=== PATIENT | male | born 1955 | race Caucasian/White ===

== ENCOUNTER → 2018-03-22 08:44 | Outpatient (CLI) | payer MEDICAID, SELFPAY ==
--- NOTE | 2018-03-22 09:12 | EKG12_ITS ---
Test Reason : PALP Blood Pressure : / mmHG Vent. Rate : 061 BPM Atrial Rate : 061 BPM P-R Int : 140 ms QRS Dur : 086 ms QT Int : 416 ms P-R-T Axes : 072 -09 056 degrees QTc Int : 418 ms Normal sinus rhythm Nonspecific ST abnormality Abnormal ECG No previous ECGs available Confirmed by ESTRELLA TSAI, CHARU ([id number]), assistant editor SHIMA MURPHY ([id number]) on 03/27/2018 3:12:33 PM Referred By: Chauncey George Confirmed By:CHARU DE LA ROSA MD
[2018-03-22 10:24] LABS: Absolute Lymphocyte Count 1.34 X10^3/ul (0.83-4.51); Absolute Neutrophil Count 4.8 X10^3/uL (2.0-7.7); Basophil# 0.03 X10^3/uL; Basophil% 0.4 % (0-1); Eosinophils% 1.5 % (0-5); Hematocrit 45.7 % (40-54); Lymphocyte # 1.34 X10^3/ul (4.0); Lymphocyte % 19.9 % (19-41); Mean Corp Hgb Conc 32.8 g/gl (32-36); Mean Corpuscular Hgb 31.4 pg (27.0-32.0); Mean Corpuscular Volume 95.6 fL (80-94); Mean Platelet Vol. 9.9 fl (6.2-12.0); Monocyte# 0.46 X10^3/uL; Monocyte% 6.8 % (0-10); Neutrophil # 4.79 X10^3/uL (2.7-7.7); Neutrophil % 71.3 % (47-70); Platelet Count 202 K/mm3 (150-450); RBC Distribution Width CV 13.3 % (11.6-14.6); RBC Distribution Width SD 46.3 fl (35.1-43.9); Red Blood Count 4.78 M/mm3 (4.6-6.2); White Blood Count 6.7 K/mm3 (4.4-11.0)
[2018-03-22 10:25] LABS: POSITIVE COUNT NO; POSITIVE DIFFERENTIAL NO; POSITIVE MORPHOLOGY NO
[2018-03-22 10:59] LABS: Anion Gap 9 (5-15); BUN 13 mg/dL (7-18); BUN/Creat Ratio 13.7 RATIO (10-20); Calcium,Total 8.8 mg/dL (8.5-10.1); Chloride 106 mmol/L (98-107); Cholesterol 233 mg/dL (200); Creatinine, Serum 0.95 mg/dL (0.70-1.30); EST Glomerular Filtration Rate 85 mL/min (>60); Est Glom Filt Rate - Afr Amer 103 mL/min (>60); Glucose 85 mg/dL (74-106); High Density Lipoprotein 62 mg/dL; Magnesium 1.9 mg/dL (1.6-2.6); Potassium 3.8 mmol/L (3.5-5.1); Sodium Level 139 mmol/L (136-145); T4 Free Direct 1.17 ng/dL (0.76-1.46); Thyroid Stim Hormone (TSH) 1.07 uIU/mL (0.358-3.74); Triglycerides 59 mg/dL; Very Low Density Lipoprotein 12 mg/dL (5-40)
== END ==
PROVIDERS: Family Provider Internal Medicine; PCP Internal Medicine; Visit Provider Internal Medicine
DX: I49.9 Cardiac arrhythmia, unspecified (principal); R03.0 Elevated blood-pressure reading, without diagnosis of hypertension
CPT/HCPCS: 36415; 80048; 80061; 83735; 84439; 84443; 85025; 93005

== ENCOUNTER → 2018-04-28 15:35 | Outpatient (CLI) | payer MEDICAID, SELFPAY | PROVIDERS: Family Provider Internal Medicine; PCP Internal Medicine; Visit Provider Internal Medicine | DX: Z12.5 Encounter for screening for malignant neoplasm of prostate (principal) | CPT/HCPCS: 36415; 84153; G0103 ==

== ENCOUNTER 2018-05-17 10:44 | Day surgery (SDC) | payer MEDICAID, SELFPAY ==
[2018-05-17 11:05] VITALS: BP 124/85; PULSE 72; RESP 16; TEMP 36.7; O2SAT 99; BMI 25.7
--- NOTE | 2018-05-17 12:00 | COLBX_PTH ---
PATIENT: ORTEGA GAMINO LOC: EN U#:[id number] AGE/SX: 62/M ROOM: RE05/17/[address]: Dr. Chandler Llanos MD : 1955 BED: DIS: 05/17/2018 SPEC #: [id number] RECD: 05/17/18 14:18 STATUS: CONNOR MARLEE #: [id number] MEG: 05/17/18 12:[address]: Chandler Llanos DEPT: SURGICAL PATHOLOGY RECD BY: Dontae Wooten ENTERED: 05/17/18 14:19 SP TYPE: COLON BX OTHR DR: Dr. Chauncey George MD Tissues: A - Sigmoid colon biopsy B - Sigmoid colon biopsy Procedures: Surgery Specimen Level IV HEADER OPERATION: Colonoscopy (MAC) PRE-OP DIAGNOSIS: Screening TISSUE SUBMITTED: A ? Proximal sigmoid colon polyp, B ? Mid sigmoid polyp MICROSCOPIC DIAGNOSIS A. Proximal sigmoid colon polyp, biopsy: Fragments of hyperplastic polyp. B. Mid sigmoid polyp, biopsy: Hyperplastic polyp. DARRELL:charlie 05/18/18 MICROSCOPIC DESCRIPTION Slides are reviewed. GROSS DESCRIPTION A - Received in fixative is one container labeled with the patient's name and designated proximal sigmoid colon polyp. The specimen consists of multiple fragments of weber-pink polyp that in aggregate measure 1?x 0.5 x 0.3 cm. The specimen is totally submitted in one cassette. B - Received in fixative is one container labeled with the patient's name and designated mid sigmoid polyp. The specimen consists of a piece of weber-pink polyp measuring 0.7 x 0.7 x 0.2 cm. The specimen is totally submitted in one cassette. / DARRELL:charlie 05/17/18 TC:1 CPT: 17471 x2
[2018-05-17 12:31] VITALS: BP 117/88; BP 124/85; PULSE 66; RESP 16; TEMP 36.6; O2SAT 93
[2018-05-17 12:35] VITALS: BP 109/65; BP 124/85; PULSE 64; RESP 16; O2SAT 95
[2018-05-17 12:40] VITALS: BP 106/67; BP 124/85; PULSE 58; RESP 16; O2SAT 98
[2018-05-17 12:46] VITALS: BP 104/65; BP 124/85; PULSE 60; RESP 16; TEMP 35.9; O2SAT 98
[2018-05-17 13:05] VITALS: BP 124/85
--- NOTE | 2018-05-17 13:27 | H&P.OPEN ---
Past Medical/Surgical History - Planned Operation Planned Operative Procedure/s: cscope open access Date of Operative Procedure: 05/17/18 Permit Signed: No S.O.S: No Is This Patient Having a Total Joint: No - Previous Hospitalizations/Surgeries HX Hospitalizations: No HX of Surgeries: left arm and hand reattached after severing injury 1987. dental surgery Any Problems With Anesthesia: No You/Your Family Experience Fever (Hyperthermia) With Anes: No Cholinesterase deficiency: No - Cardiovascular Hx Chest Pain within Last 2 months: No Hx of Irregular Heartbeat and/or Afib: Yes - tachycardia/saw pcp/had ekg Hx Heart Attack: No Hx Congestive Heart Failure: No Hx Rheumatic Fever: No Hx Hypertension: No Hx Internal Defibrillator: No Hx Pacemaker: No Hx Cardiac Catheterization: No Hx Cardiac Surgery/Stents/Etc.: No Hx Stress Test: No HX Edema: No Hx Pain in Legs when Walking/Leg Cramps: No - Respiratory Chronic Cough: No HX of Shortness of Breath: No Hoarseness: No Hx Chronic Obstructive Pulmonary Disease (COPD): No Hx Asthma: No Hx Emphysema: No Hx Sleep Apnea: No Hx Oxygen Use at Home: No Hx Respiratory Tract Infection/Cold (presently): No Do You Snore Loudly (louder than talking or can be heard): Yes Do You Often Feel Tired/ Fatigued/ Sleepy Dring Daytime?: No Has Anyone Observed You Stop Breathing During Sleep?: Yes Result (for STOP score): Positive Hx Smoking: No Smoking Status: Never smoker - Gastrointestinal Hx Gastroesophageal Reflux: Yes Controlled With Meds: Yes Hx Gastrointestinal Disorders: No Hx Gastrointestinal Bleed: No Hx Ulcer: Yes - possible ulcer currently Hx Hiatal Hernia: No Difficulty Chewing/Swallowing: No Recent Onset of Swallowing Problems: No Special diet followed at home: No Hx Unplanned Weight Loss of 20#: No HX Unplanned Weight Gain of 20#: No - Neurological Hx Seizures: No HX Syncope/Blackout Spells/Unconsciousness: No Hx CVA/Stroke: No Hx Transient Ischemic Attacks (TIA): No Hx Multiple Sclerosis: No Hx Parkinson's Disease: No Hx Head/Neck Injury: Yes - 1987 hit head Hx Headaches: No Hx Back Injury/Pain: No Recent Onset of Speech Difficulty: No Restless Legs: Yes Does patient have nerve stimulator: No Patient instructed to have device shut off: No Rep notified?: No - Blood Disorder Hx Leukemia: No Bleeding Tendencies: No Hx Deep Vein Thrombosis: No Hx High Cholesterol: No Blood Transmitted Disease: No Hx Hepatitis: No Hx Cirrhosis: No Hx Anemia: No Hx Blood Disorders: No - Genitourinary Hx Renal Disease: No - Musculoskeletal Hx Arthritis: Yes Hx Rheumatoid Arthritis: No Hx Gout: No Recent Onset of an Orthopedic Problem: No - Endocrine Hx Diabetes: No Thyroid Disease: No Hx Steroid Therapy: No - Psycho/Social Hx Substance Use: No Hx Alcohol Use: No Hx Anxiety: Yes - at times Hx Depression: No Mental Illness: No Hx Dementia: No - Miscellaneous Hx Cancer: No Recent Exposure to Contagious Disease: No Active MRSA: No Hx of C-Diff: No Any Loose Teeth: No - no teeth Allergies codeine Allergy (Verified 05/17/18 11:04) Unknown - Discharge Is Pt Admitted From a Alf, or a Longterm: No Who Could Help: After D/C, Where Do you Plan to Go: Return Home - From the PAT History Number of Risk Factors: 3 - Physical Exam General: Alert, Oriented x3, Cooperative Neck: No JVD Lungs: Normal air movement Cardiovascular: Regular rate, Regular Rhythm Abdomen: Soft, Non Tender, Non-Distended Vital Signs Temp Pulse Resp BP Pulse Ox 96.7 F L 60 16 104/65 98 05/17/18 12:46 05/17/18 12:46 05/17/18 12:46 05/17/18 12:46 05/17/18 12:46 Oxygen Delivery Method Room Air Weight: 179 lb 6.4 oz Body Mass Index (BMI) 25.7 Assessment/Plan All Active Problems (Last Reviewed 04/19/18 @ 14:31 by Kecia Freeman) Hyperlipidemia (Acute) 62-year-old male with screening colonoscopy 1. Patient reports he is having no issues at this time. He denies any abdominal pain or blood in his stool. He has no family history of colon cancer. He has never had a colonoscopy in the past. 2. I explained endoscopy in detail to the patient. I explained the risks including but not limited to stroke or heart attack with anesthesia, perforation of the GI tract, bleeding, infection. I explained that any of these could necessitate further emergency surgery. The patient understands and all questions were answered sufficiently. The patient wishes to proceed with procedure. Chandler Llanos MD Pager: [facility] [address] [place] [address], [address] [place] [address] Office: Surgery Risks - Colonoscopy Risks Include but are not Limited To: Risks include but are not limited to: Bleeding, perforation requiring further surgery, inability to complete colonoscopy requiring barium enema.
--- NOTE | 2018-05-17 13:28 | PCM.OPRPT ---
Problem List (1) Screen for colon cancer Status: Acute Report of Operation Date of Procedure: 05/17/18 Pre-Operative Diagnosis: Screening colon cancer Post-Operative Diagnosis: Sigmoid polyps ?2 Surgery/Procedure Performed:: Colonoscopy with snare polypectomy Specimen's removed: 1. Proximal sigmoid polyp. 2. Mid sigmoid polyp Description of Procedure: The major risks and benefits associated with the procedure were explained to the patient in detail. The patient verbalized understanding and agreement with the same. The patient was brought to the endoscopy suite. After adequate sedation was achieved, the patient was placed in the left lateral decubitus position and a digital rectal exam was performed. This examination was within normal limits. A well-lubricated colonoscope was then inserted into the rectum and advanced under direct visualization to the level of the cecum. The bowel prep was good. The cecum was identified by both visual and anatomic landmarks. A photograph was taken of the end of the cecum. The scope was then fully withdrawn while examining the color, texture, anatomy and integrity of the mucosa from the cecum to the anal canal. The findings were consistent with normal colonic mucosa. Over 6 minutes were taken to examine the colonic mucosa. The patient did have a proximal sigmoid polyp which was sessile. This was removed in 2 pieces with cautery snare. The patient also had a small polyp just distal to this which was removed with cautery snare. Hemostasis was good at both sites. Upon reaching the rectum the scope was retroflexed to examine the distal rectal vault. The scope was then straightened and was completely retrieved upon exiting the anal canal and the procedure was terminated. The patient was then transferred to the recovery room in stable condition. Recommendations for follow up: Depending on pathology
== END 2018-05-17 13:08 | disposition home or self-care (01) ==
LOC: EN 10:45 → AC 10:46
PROVIDERS: Family Provider Internal Medicine; PCP Internal Medicine; Visit Provider Surgery
PROC: 0DJD8ZZ Inspection of Lower Intestinal Tract, Via Natural or Artificial Opening Endoscopic (ICD-10-PCS; CPT 45378; principal; 2018-05-17 11:55)
DX: Z12.11 Encounter for screening for malignant neoplasm of colon (principal); K63.5 Polyp of colon; K21.9 Gastro-esophageal reflux disease without esophagitis; R00.0 Tachycardia, unspecified; Z87.891 Personal history of nicotine dependence; Z79.82 Long term (current) use of aspirin
CPT/HCPCS: 45385; 88305; J7120

== ENCOUNTER 2022-05-10 09:33 | Observation (INO) | payer MEDICARE, SELFPAY ==
[2022-05-10] VITALS (16 sets, daily range): BP systolic 112–152; BP diastolic 94–113; PULSE 94–147; RESP 16–158; TEMP 36.2–37.2; O2SAT 96–98; BMI 26.4; BMI 29.0
--- NOTE | 2022-05-10 09:45 | EKG12_ITS ---
Test Reason : sob Blood Pressure : / mmHG Vent. Rate : 161 BPM Atrial Rate : 000 BPM P-R Int : 000 ms QRS Dur : 076 ms QT Int : 282 ms P-R-T Axes : 000 -12 134 degrees QTc Int : 461 ms Atrial fibrillation with rapid ventricular response Nonspecific ST and T wave abnormality Abnormal ECG Confirmed by LORENA TSAI, GORDY ([id number]), technical writer and editor BASHIR HAYWOOD ([id number]) on 05/12/2022 9:37:58 AM Referred By: Dinesh Confirmed By:GORDY CARRILLO MD
--- NOTE | 2022-05-10 09:46 | ED.VIS.DYS ---
HPI History of Present Illness Chief Complaint: Shortness of Breath Narrative Narrative: Patient presents with his because of shortness of breath that he has had for the last couple of years. He thought it was secondary to what was going around meaning COVID-19. He now has dyspnea on exertion, walking up the stairs from the basement, and going outside to get the mail. He also states that he awakens from sleep, feeling shortness of breath. He denies any excessive daytime sleepiness. Of note, he quit smoking cigarettes in 2003, but occasionally smokes marijuana. Denies any chest pain. He has an occasionally productive cough. No fevers or chills. No recent weight gain or swelling. [facility] Medical History (Updated 05/10/22 @ 10:38 by eBar Montiel MD) Arthritis GERD (gastroesophageal reflux disease) Seasonal allergies Home Medications aspirin 81 mg chewable tablet 81 mg PO QDAY 03/16/18 [History Last Taken 05/11/18] ranitidine HCl 150 mg tablet (Zantac) 150 mg PO QDAY 03/16/18 [History Last Taken 05/17/18 06:30 150 MG] Allergy/AdvReac Type Severity Reaction Status Date / Time codeine Allergy Unknown Verified 05/10/22 09:35 Family History Father Myocardial infarction, Onset Age: 45 Cancer prostate Surgical History History of facial surgery History of surgery on arm Social History Smoking Status: Never smoker how long ago did patient quit smokin alcohol intake: never substance use type: does not use what type of physical activity do you participate in: bicycling frequency: daily ROS ROS ED ROS Narrative Constitutional: No fever, no chills. HEENT: No sore throat. No neck pain. No loss of vision. No rhinorrhea. Cardiovascular: No chest pain. No palpitations. No pedal edema. No recent weight gain. Respiratory: Occasionally productive cough of clear sputum, positive shortness of breath, positive dyspnea on exertion. Abdominal: No abdominal pain. No nausea. No vomiting. Genitourinary: No dysuria. No hematuria. Musculoskeletal: No myalgias. No arthralgias. Neurologic: No headaches. No dizziness. No lightheadedness. Skin: No rash. No change in color. Psychiatric: No depression. No anxiety. EXAM Physical Exam Narrative Exam Narrative: Afebrile. Vital signs noted. HEENT: Normocephalic. Atraumatic. PERRL, EOMI. Neck soft and supple. No point tenderness or step off. Cardiovascular: Irregular rhythm with intermittent tachycardia. No murmurs, rubs, or gallops appreciated. Respiratory: No tachypnea. Lungs clear to auscultation bilaterally. Gastrointestinal: Abdomen soft, nontender, with normoactive bowel sounds. No rebound or guarding. Neurological: Awake. Alert. Nonfocal, nonlateralizing. Skin: No rash. Normal color. No pallor. Musculoskeletal: No pedal edema. Full range of motion extremities. Const Vital Signs: 05/10/22 09:34 05/10/22 09:42 05/10/22 10:10 Temperature 98.2 F Temperature Source Temporal Pulse Rate 103 H Respiratory Rate 16 158 H Respiratory Effort Normal Non-Labored Respiratory Depth Normal Respiratory Pattern Normal Blood Pressure 148/109 H Blood Pressure Mean 122 Pulse Ox 98 Oxygen Delivery Method Room Air Room Air 05/10/22 10:24 05/10/22 11:05 Temperature Temperature Source Pulse Rate 147 H 118 H Respiratory Rate 18 16 Respiratory Effort Respiratory Depth Respiratory Pattern Blood Pressure 152/108 H 146/112 H Blood Pressure Mean 122 123 Pulse Ox 98 97 Oxygen Delivery Method Room Air MDM MDM MDM Narrative Medical decision making narrative: Patient's pulse ox is 98% on room air without evidence of hypoxia. Comprehensive work-up was pursued. I will look for atrial fibrillation with an EKG, and any pneumothorax or pneumonia/heart failure with a two-view chest x-ray. I do feel that he may have some component of COPD given that he is a former smoker. He was told he may require follow-up with cardiology, pulmonology, or both. EKG was obtained and interpreted by myself. It does demonstrate atrial fibrillation with rapid ventricular response at [address] changes. No STEMI. I reexamined the patient and he does have an increase in his heart rate over initial examination and is more irregular. He was placed on a property assessment monitor and administered 10 mg of Cardizem intravenously. He only had a slight reduction in his heart rate to the 140s. He will be bolused an additional 10 mg of diltiazem intravenously. Chest x-ray interpreted by myself shows no evidence of pneumonia or pneumothorax, no CHF. His laboratory work is grossly unremarkable with a normal white count of 6.9, hemoglobin normal at 14.0, hematocrit 42.7. He has a normal platelet count of 213. Electrolyte panel shows chloride slightly elevated at 110 which I think is nonspecific, glucose appropriately elevated at 117 with a normal anion gap of 6. High-sensitivity troponin is 13 and he is having shortness of breath for the last few years. He has a slight elevation of his brain natruretic peptide at 305. He has a normal pulse ox. He has a low CHADS2 score. Goal will be for rate control currently. I am unsure as to when his atrial fibrillation may have previously started. He and his state that he has no prior history of atrial fibrillation and may have been diagnosed with anxiety attack given his shortness of breath in the past. His rate was not well controlled with 2 boluses of 10 mg of diltiazem. I discussed the patient with Dr. Casarez. Patient will be admitted to the PCU. He would like an additional bolus of 10 mg of diltiazem and 100 mg of metoprolol tartrate given to the patient. Disposition is admit in stable condition. Lab Data Attestation: I reviewed the patient's lab results. Labs: Laboratory Results - last 24 hr 05/10/22 05/10/22 05/10/22 09:55 09:55 09:55 WBC 6.9 RBC 4.43 L Hgb 14.0 Hct 42.7 MCV 96.4 H MCH 31.6 MCHC 32.8 RDW Std Deviation 47.6 H RDW Coeff of Chivo 13.4 Plt Count 213 MPV 10.2 Immature Gran % (Auto) 0.400 Neut % (Auto) 76.1 H Lymph % (Auto) 13.[address] [place] [employer] % (Auto) 8.3 Eos % (Auto) 1.2 Baso % (Auto) 0.4 Absolute Neuts (auto) 5.3 Absolute Lymphs (auto) 0.94 Nucleated RBC % 0 Sodium 140 Potassium 4.0 Chloride 110 H Carbon Dioxide 24.0 Anion Gap 6 BUN 12 Creatinine 0.98 Estim Creat Clear Calc 77.90 Est GFR (MDRD) Af Amer 98 Est GFR (MDRD) Non-Af 81 BUN/Creatinine Ratio 12.3 Glucose 117 H Calcium 8.8 Troponin I High Sens 13 B-Natriuretic Peptide 305.5 H Radiography Diagnostic Testing: Clinical Impression(s) from Imaging Studies Chest X-Ray 05/10/22 10:13 IMPRESSION: Poor inspiration with some bibasilar atelectasis but Electronically Signed: Roby Noyola MD at 10:31 EDT , Discharge Plan Triage Chief Complaint: Shortness of Breath ED Provider: Bear Montiel Dx/Rx/DC Orders Clinical Impression: Atrial fibrillation, new onset, Atrial fibrillation with rapid ventricular response, Dyspnea on exertion Primary Care Provider: Gladis Rodgers
[2022-05-10 10:05] LABS: Absolute Lymphocyte Count 0.94 X10^3/uL (0.83-4.51); Absolute Neutrophil Count 5.3 X10^3/uL (2.0-7.7); Basophil# 0.03 X10^3/uL; Basophil% 0.4 % (0-1); Eosinophil# 0.08 X10^3/uL; Eosinophils% 1.2 % (0-5); Hematocrit 42.7 % (40-54); Lymphocyte # 0.94 X10^3/ul (0.83-4.51); Lymphocyte % 13.6 % (19-41); Mean Corp Hgb Conc 32.8 g/dL (32-36); Mean Corpuscular Hgb 31.6 pg (27.0-32.0); Mean Corpuscular Volume 96.4 fL (80-94); Mean Platelet Vol. 10.2 fl (6.2-12.0); Monocyte# 0.57 X10^3/uL; Monocyte% 8.3 % (0-10); NRBC Flagged by Analyzer 0 % (0-5); Neutrophil # 5.25 X10^3/uL (2.7-7.7); Neutrophil % 76.1 % (47-70); Platelet Count 213 K/mm3 (150-450); RBC Distribution Width CV 13.4 % (11.6-14.6); RBC Distribution Width SD 47.6 fl (35.1-43.9); Red Blood Count 4.43 M/mm3 (4.6-6.2); White Blood Count 6.9 K/mm3 (4.4-11.0)
[2022-05-10] MEDS: dilTIAZem 25 MG/5 ML Vial 10 MG IV BOLUS ×3 (10:07→11:38)
--- NOTE | 2022-05-10 10:13 | RAD_ITS ---
STUDY: X-RAY CHEST REASON FOR EXAM: Male, 66 years old. Shortness of Breath TECHNIQUE: PA and lateral views of the chest. COMPARISON: None. FINDINGS: Poor inspiration with some bibasilar atelectasis. There is no demonstrated pleural abnormality. Normal size heart. Normal mediastinum and jeanne. Normal visualized pulmonary arteries. Normal visualized aortic arch and descending thoracic aorta. Normal visualized thoracic spine. Normal visualized ribs, clavicles, and shoulders. There is no demonstrated abnormality of the visualized soft tissue structures of the upper abdomen. RAD/Chest PA and Lateral IMPRESSION: Poor inspiration with some bibasilar atelectasis but Electronically Signed: Roby Noyola MD at 10:31 EDT ,
[2022-05-10 10:18] LABS: BNP,B-Type NATRIURETIC PEPTIDE 305.5 pg/mL (0-100)
[2022-05-10 10:21] LABS: Anion Gap 6 (5-15); BUN 12 mg/dL (7-18); BUN/Creat Ratio 12.3 RATIO (10-20); Calcium,Total 8.8 mg/dL (8.5-10.1); Chloride 110 mmol/L (98-107); Creatinine, Serum 0.98 mg/dL (0.70-1.30); EST Glomerular Filtration Rate 81 mL/min (>60); Est Glom Filt Rate - Afr Amer 98 mL/min (>60); Glucose 117 mg/dL (74-106); Sodium Level 140 mmol/L (136-145); Troponin-I HS 13 pg/mL (3.0-78.0)
--- NOTE | 2022-05-10 11:26 | NURSING ---
DR SHETH FOR DR AMARO
--- NOTE | 2022-05-10 11:40 | ECHOCS_ITS ---
Reason For Study: Afib, Aflutter Procedure This was a 2D Doppler, Color Flow transthoracic echocardiogram. Contrast injection was performed. Exam performed portable in patient room. Left Ventricle Normal LV size. Mild concentric left ventricular hypertrophy. Moderately severe global left ventricular systolic dysfunction. The estimated ejection fraction is 35 %. There is moderate to severe global hypokinesis of the left ventricle. Right Ventricle Normal RV size. Normal systolic function. Atria The left atrium is mildly enlarged. Normal right atrium. Mitral Valve Bileaflet diffuse mitral valve thickening. Mild-Moderate (1-2+) eccentric mitral valve insufficiency. Tricuspid Valve Normal tricuspid valve. Mild to moderate (1-2+) tricuspid valve insufficiency. Pulmonary artery systolic pressure is 34 mmHg. Pulmonic Valve Normal pulmonic valve. Great Vessels Normal aortic root. The pulmonary artery is normal size. Inferior vena cava collapse with respiration. Pericardium/Pleural No pericardial effusion. Medication Diluted definity 3ml given slow IV push to enhance endocardial definition. MMode/2D Measurements & Calculations LVIDd: 5.3 cm IVSd: 1.2 cm Ao root diam: 3.4 cm LVIDs: 4.5 cm LVPWd: 1.2 cm RVDd: 2.7 cm FS: 14.3 % LAV(MOD-bp): 82.5 ml LVAd ap4: 25.8 cm2 SV(MOD-sp4): 27.6 ml LAV(MOD-bp) Indexed: 40.0 ml/m2 LVLd ap4: 7.0 cm LAV(MOD-sp2): 90.5 ml EDV(MOD-sp4): 80.6 ml LAV(MOD-sp4): 65.9 ml EDV(sp4-el): 81.4 ml LVAs ap4: 19.8 cm2 LVLs ap4: 6.1 cm ESV(MOD-sp4): 53.0 ml ESV(sp4-el): 54.8 ml EF(MOD-sp4): 34.2 % EF(sp4-el): 32.7 % SV(sp4-el): 26.6 ml LA A4 area: 23.7 cm2 LA dimension(2D): 4.1 cm RA A4 area: 18.4 cm2 Doppler Measurements & Calculations MV E max jair: 88.8 cm/sec Ao V2 max: 81.6 cm/sec LV V1 max: 60.3 cm/sec Ao max P.7 mmHg LV V1 max P.5 mmHg Ao V2 mean: 63.7 cm/sec Ao mean P.8 mmHg Ao V2 VTI: 13.0 cm PA V2 max: 55.1 cm/sec TR max jair: 272.8 cm/sec TR max P.8 mmHg ECHO/Echo Complete W/ Contrast Interpretation Summary Normal LV size. Mild concentric left ventricular hypertrophy. Moderately severe global left ventricular systolic dysfunction. Mild-Moderate (1-2+) eccentric mitral valve insufficiency. Pulmonary artery systolic pressure is 34 mmHg. The estimated ejection fraction is 35 %. Contrast injection was performed. Ordering Physician: Dennis Casarez Referring Physician: Gladis Rodgers Performed By: Juana Parra, GARRET, RVT
--- NOTE | 2022-05-10 11:40 | NURSING ---
PCU TERELETSKY ATRIAL FIBRILLATION, PETER
[2022-05-10] MEDS: Metoprolol Tartrate 100 MG Tablet PO ×2 (11:47→20:24)
--- NOTE | 2022-05-10 12:27 | PCM.HP.STD ---
Documented by User: TONY He 05/10/22 12:46 HPI - General General Date of Admission: 05/10/22 Date of Service: 05/10/22 Chief Complaint: Shortness of Breath HPI Narrative ORTEGA GAMINO, is a 66 M who presents with complaint of shortness breath with exertion that he has had for the last couple of years but has gotten progressively worse in the past few weeks. patient states he has not seen a provider since 2019 and currently does not take any prescription medications. Patient reports he takes a low dose aspirin and pepcid. [facility] Medical History (Updated 05/10/22 @ 10:38 by Bear Montiel MD) Arthritis GERD (gastroesophageal reflux disease) Seasonal allergies Home Medications aspirin 81 mg chewable tablet 81 mg PO QDAY [facility] 03/16/18 [History Last Taken 05/09/22 21:00] ranitidine HCl 150 mg tablet (Zantac) 150 mg PO QDAY GERD 03/16/18 [History Last Taken 05/09/22 21:00] Allergy/AdvReac Type Severity Reaction Status Date / Time codeine Allergy Swelling Verified 05/10/22 12:45 Family History Father Myocardial infarction, Onset Age: 45 Cancer prostate Surgical History History of facial surgery History of surgery on arm Social History Smoking Status: Never smoker how long ago did patient quit smokin alcohol intake: never substance use type: does not use what type of physical activity do you participate in: bicycling frequency: daily ROS Constitutional Constitutional: Denies anorexia, change in weight, chills, fatigue, fever(s) or weakness Cardiovascular Cardiovascular: Reports rapid heart rate; Denies chest pain, edema, orthopnea or palpitations Respiratory/Chest Respiratory/Chest: Reports dyspnea on exertion; Denies cough or wheezing Gastrointestinal Gastrointestinal: Denies abdominal pain, constipation, diarrhea, nausea or vomiting Genitourinary Genitourinary: Denies dysuria Musculoskeletal Musculoskeletal: Denies back pain, extremity pain, joint pain or joint stiffness Integumentary Integumentary: Denies dry skin Neurologic Neurologic: Denies abnormal gait, abnormal speech, confusion or dizziness Psychiatric Psychiatric: Denies anxiety or depression Endocrine Endocrinology: Denies change in body appearance Hematologic/Lymphatic Hematologic/Lymphatic: Denies anemia Vital Signs Vital Signs Vital Signs: 05/10/22 09:34 05/10/22 09:42 05/10/22 10:10 Temperature 98.2 F Temperature Source Temporal Pulse Rate 103 H Respiratory Rate 16 158 H Respiratory Effort Normal Non-Labored Respiratory Depth Normal Respiratory Pattern Normal Blood Pressure 148/109 H Blood Pressure Mean 122 Pulse Ox 98 Oxygen Delivery Method Room Air Room Air 05/10/22 10:24 05/10/22 11:05 05/10/22 12:00 Temperature 98.2 F Temperature Source Temporal Pulse Rate 147 H 118 H 118 H Respiratory Rate 18 16 16 Respiratory Effort Respiratory Depth Respiratory Pattern Blood Pressure 152/108 H 146/112 H 146/112 H Blood Pressure Mean 122 123 123 Pulse Ox 98 97 97 Oxygen Delivery Method Room Air Room Air Weight Weight: 190 lb Body Mass Index (BMI) 26.4 Physical Exam Const alert, oriented x3 and no apparent distress General Appearance: cooperative HEENT normocephalic and head/scalp atraumatic Eyes conjunctivae normal and no scleral icterus Neck no lymphadenopathy and supple General: trachea midline Lymph Lymphatic: no lymphadenopathy noted Resp normal respiratory effort, normal air movement and clear to auscultation bilaterally Cardio peripheral pulses 2+ throughout Rate: tachycardic Rhythm: abnormal rhythm irregularly irregular GI normal to inspection, nondistended, normoactive bowel sounds, soft to palpation and non-tender Extremity normal capillary refill and no clubbing, cyanosis or edema Skin General Skin Exam: no breakdown Lesions: no lesions Rashes: no rashes Neuro no focal motor deficits and no sensory deficits noted Psych thought process normal, cooperative and affect normal Results Lab / Micro Data Result Diagrams: 05/10/22 09:55 05/10/22 09:55 Labs: Laboratory Results - last 24 hr 05/10/22 09:55: WBC 6.9, RBC 4.43 L, Hgb 14.0, Hct 42.7, MCV 96.4 H, MCH 31.6, MCHC 32.8, RDW Std Deviation 47.6 H, RDW Coeff of [place] 13.4, Plt Count 213, MPV 10.2, Immature Gran % (Auto) 0.400, Neut % (Auto) 76.1 H, Lymph % (Auto) 13.6 L, [place] % (Auto) 8.3, Eos % (Auto) 1.2, Baso % (Auto) 0.4, Absolute Neuts (auto) 5.3, Absolute Lymphs (auto) 0.94, Nucleated RBC % 0 05/10/22 09:55: Sodium 140, Potassium 4.0, Chloride 110 H, Carbon Dioxide 24.0, Anion Gap 6, BUN 12, Creatinine 0.98, Estim Creat Clear Calc 77.90, Est GFR (MDRD) Af Amer 98, Est GFR (MDRD) Non-Af 81, BUN/Creatinine Ratio 12.3, Glucose 117 H, Calcium 8.8, Troponin I High Sens 13 05/10/22 09:55: B-Natriuretic Peptide 305.5 H Radiology Impression Chest X-Ray 05/10/22 10:13 IMPRESSION: Poor inspiration with some bibasilar atelectasis but Electronically Signed: Roby Noyola MD at 10:31 EDT , Assessment & Plan Assessment/Plan (1) Atrial fibrillation with rapid ventricular response: PLAN: Plan 1. Atrial fibrillation with RVR -Admit to PCU patient received 30 mg Cardizem bolus total in ER and 100 mg metoprolol x1 -Metoprolol 100 mg twice daily initiated along with Eliquis 5 mg daily -Echocardiogram ordered -Trend troponins -Vital signs per protocol 2. Elevated BNP -BNP 308 -Patient not hypoxic and no signs or symptoms of heart failure. Chest x-ray negative for acute findings. 3. Marijuana use -Patient smokes occasionally 4. Alcohol use -Patient reports he drinks 2-3 beers daily DVT prophylaxis-not indicated, patient initiated on Eliquis This patient was seen by TONY He under the supervision of Dr. Casarez. 30 minutes spent in clinical coordination of patient's plan of care. Documented by User: Dr. Dennis Casarez DO 05/10/22 17:07 HPI - General General Date of Admission: 05/10/22 [facility] Medical History (Updated 05/10/22 @ 10:38 by Bear Montiel MD) Arthritis GERD (gastroesophageal reflux disease) Seasonal allergies Home Medications aspirin 81 mg chewable tablet 81 mg PO QDAY [facility] 03/16/18 [History Last Taken 05/09/22 21:00] ranitidine HCl 150 mg tablet (Zantac) 150 mg PO QDAY GERD 03/16/18 [History Last Taken 05/09/22 21:00] Allergy/AdvReac Type Severity Reaction Status Date / Time codeine Allergy Swelling Verified 05/10/22 12:45 Family History Father Myocardial infarction, Onset Age: 45 Cancer prostate Surgical History History of facial surgery History of surgery on arm Social History Smoking Status: Never smoker how long ago did patient quit smokin alcohol intake: never substance use type: does not use what type of physical activity do you participate in: bicycling frequency: daily Results Lab / Micro Data Result Diagrams: 05/10/22 09:55 05/10/22 09:55 Assessment & Plan Assessment/Plan (1) Atrial fibrillation with rapid ventricular response: Charges/Coding Addendum Addendum: Patient was seen and examined independently of Sarah Zavala today, he came to the emergency room today with complaints of shortness of breath over the last 1 to 2 weeks, work-up in the emergency room showed the patient to be in atrial fibrillation with a rapid ventricular response, he was given IV Cardizem with some slowing of his rate. Patient's was present at the time of my examination. On examination he appeared in good health and spirits. Vital signs as documented. Skin warm and dry and without overt rashes. Neck without JVD, neck was supple, trachea midline, thyroid was normal. Lungs clear bilaterally, normal air movement was noted. Heart exam notable for irregular rhythm, normal sounds and absence of murmurs, rubs or gallops. Abdomen unremarkable and without evidence of organomegaly, masses, or abdominal aortic enlargement. Bowel sounds are present, abdomen is not distended. Extremities nonedematous, no cyanosis was noted, no clubbing was noted. Neuro: Cranial nerves II through XII are grossly intact, no focal motor deficits were noted, sensation to light touch and pinprick intact, motor exam 5/5 throughout. Psych: Patient is alert and oriented x3, he does not appear anxious or depressed, he does not appear agitated. Labs obtained in the emergency room revealed a normal CBC, patient's chemistry profile was unremarkable, patient's beta natruretic peptide was elevated at 305.5. Patient's troponin was unremarkable. Patient's chest x-ray showed no evidence of congestive heart failure, patient's pulse ox on room air was 98%. Impression: #1 new onset atrial fibrillation with rapid ventricular response-patient will be placed in observation status, he will be placed on oral medication for rate control, he will be anticoagulated with oral DOAC's, patient's cardiac enzymes will be cycled, he will get an echocardiogram performed. #2 hypertension-again patient will be placed on rate limiting medications which should lower his blood pressure. #3 GERD-patient will be placed on Protonix #4 hyperlipidemia-patient has a history of hyperlipidemia, he is on no medications currently, I will obtain lipid profile in the morning I have reviewed Sarah Zavala's history and physical including her medical assessment and plan of care with the above additions endorse it. Total clinical time spent by myself addressing the patient's medical issues, reviewing the data, and collaborating with patient's care team: 45-minute Visit Charges OBSV E&M: [id number] Initial observation care L3
[2022-05-10 12:58] LABS: Troponin-I HS 13 pg/mL (3.0-78.0)
[2022-05-10] MEDS: APIXABAN 5 MG TABLET PO ×2 (14:26→20:24)
[2022-05-10] MEDS: dilTIAZem 60 MG Tablet PO ×2 (14:26→20:24)
[2022-05-10 16:42] LABS: Troponin-I HS 15 pg/mL (3.0-78.0)
[2022-05-10] MEDS: Pantoprazole Sodium 20 MG Tablet PO (17:40)
[2022-05-11] VITALS (11 sets, daily range): BP systolic 102–134; BP diastolic 81–93; PULSE 64–112; RESP 18; TEMP 36–36.6; O2SAT 94–96
[2022-05-11] MEDS: Acetaminophen 325 MG Tablet 650 MG PO (04:07)
[2022-05-11] MEDS: dilTIAZem 60 MG Tablet PO ×2 (05:35→11:14)
[2022-05-11 06:09] LABS: Cholesterol 161 mg/dL (200); High Density Lipoprotein 55 mg/dL; Triglycerides 74 mg/dL; Very Low Density Lipoprotein 15 mg/dL (5-40)
[2022-05-11] MEDS: Pantoprazole Sodium 20 MG Tablet PO (09:37)
[2022-05-11] MEDS: Lisinopril 10 MG Tablet PO (09:37)
[2022-05-11] MEDS: APIXABAN 5 MG TABLET PO (09:37)
[2022-05-11] MEDS: Metoprolol Tartrate 100 MG Tablet PO (09:37)
--- NOTE | 2022-05-11 10:07 | PN.HOSP_ITS ---
Subjective Subjective Patient seen and examined. Patient sitting in bed no distress noted. Discussed results of echocardiogram with patient and plan for today which includes increasing Cardizem and continuing to evaluate heart rate and rhythm. Patient verbalized understanding Objective Data Objective Data Vital Signs: Vital Signs Temp Pulse Resp BP Pulse Ox O2 Del Method 97 F L 96 18 118/91 H 94 Room Air 05/11/22 09:33 05/11/22 09:37 05/11/22 09:33 05/11/22 09:37 05/11/22 09:33 05/11/22 09:33 Oxygen Delivery Method Room Air Weight: 202 lb 13.204 oz Body Mass Index (BMI) 29.0 Intake & Output: Intake and Output for Last 24 Hours 05/09/22 05/10/22 05/11/22 23:59 23:59 23:59 Intake Total 540 / 540 360 / 360 Balance 540 / 540 360 / 360 Lab / Micro Data Result Diagrams: 05/10/22 09:55 05/10/22 09:55 Labs: Laboratory Results - last 24 hr 05/10/22 09:55: Sodium 140, Potassium 4.0, Chloride 110 H, Carbon Dioxide 24.0, Anion Gap 6, BUN 12, Creatinine 0.98, Estim Creat Clear Calc 77.90, Est GFR (MDRD) Af Amer 98, Est GFR (MDRD) Non-Af 81, BUN/Creatinine Ratio 12.3, Glucose 117 H, Calcium 8.8, Troponin I High Sens 05/10/22 09:55: B-Natriuretic Peptide 305.5 H 05/10/22 12:30: Troponin I High Sens 05/10/22 16:00: Troponin I High Sens 05/11/22 04:39: Triglycerides 74, Cholesterol 161, LDL Cholesterol 91, VLDL Cholesterol 15, HDL Cholesterol 55 Radiography Diagnostic Testing: Radiology Impression Chest X-Ray 05/10/22 10:13 IMPRESSION: Poor inspiration with some bibasilar atelectasis but Electronically Signed: Roby Noyola MD at 10:31 EDT , Echocardiogram 05/10/22 11:40 Interpretation Summary Normal LV size. Mild concentric left ventricular hypertrophy. Moderately severe global left ventricular systolic dysfunction. Mild-Moderate (1-2+) eccentric mitral valve insufficiency. Pulmonary artery systolic pressure is 34 mmHg. The estimated ejection fraction is 35 %. Contrast injection was performed. Ordering Physician: Dennis Casarez Referring Physician: Gladis Rodgers Performed By: Juana Parra RDCS, RVT Physical Exam Const alert, oriented x3 and no apparent distress General Appearance: cooperative HEENT normocephalic and head/scalp atraumatic Eyes conjunctivae normal and no scleral icterus Neck no lymphadenopathy and supple General: trachea midline Lymph Lymphatic: no lymphadenopathy noted Resp normal respiratory effort, normal air movement and clear to auscultation bilaterally Cardio peripheral pulses 2+ throughout Rate: tachycardic Rhythm: abnormal rhythm irregularly irregular GI normal to inspection, nondistended, normoactive bowel sounds, soft to palpation and non-tender Extremity normal capillary refill and no clubbing, cyanosis or edema Skin General Skin Exam: no breakdown Lesions: no lesions Rashes: no rashes Neuro no focal motor deficits and no sensory deficits noted Psych thought process normal, cooperative and affect normal Assessment & Plan Assessment/Plan (1) Atrial fibrillation with rapid ventricular response: PLAN: Plan 1. Atrial fibrillation with RVR -Continue metoprolol 100 mg twice daily initiated along with Eliquis 5 mg daily -P.o. Cardizem increased from 60 mg every 8 hours to Cardizem 60 mg every 6 hours -Digoxin 0.5 IV x1 ordered -Echocardiogram demonstrates EF 35%, mild to moderate mitral valve insufficiency. Pulmonary artery systolic pressure 34 mmHg. -Troponins negative x3 -Vital signs per protocol 2. Elevated BNP -BNP 308 -Patient not hypoxic and no signs or symptoms of heart failure. -Chest x-ray negative for acute findings. 3. Marijuana use -Patient smokes occasionally 4. Alcohol use -Patient reports he drinks 2-3 beers daily DVT prophylaxis-not indicated, patient initiated on Eliquis This patient was seen by Anju Zavala NP-C under the supervision of Dr. Casarez. 13 minutes spent in clinical coordination of patient's plan of care.
[2022-05-11] MEDS: Digoxin 250 MCG/ML Ampul 500 MCG IV (11:14)
[2022-05-11] MEDS: dilTIAZem CD 300 MG Capsule PO (13:33)
--- NOTE | 2022-05-11 14:32 | CASEMGMT ---
MIKE CM in to complete DENNIS form with patient. RN CM explained DENINS form to patient, patient voiced understanding. Patient signed DENNIS form and filed in chart. Patient provided with copy of signed DENNIS form. Ptaient had no further questions or concerns at this time.
--- NOTE | 2022-05-11 15:26 | DCINST_ITS ---
Discharge Instructions Diet Discharge Diet: - (Low Sodium Diet) Activity Discharge Activity: Return to Normal Activity Dressing / Incision Call your doctor if you observe: Shortness of breath, Dizziness, Chest pain and Increased palpitations (irregular heartbeat) Follow Up Care Test Results: Test results from this visit will be discussed in further detail at your follow- up appointment, if applicable. Discharge Plan Admission Admit Date/Time: 05/10/22 11:30 Primary Reason for Your Visit: New onset Atrial Fibrillation Attending Provider: Dennis Casarez Primary Care Provider: Gladis Rodgers Discharge Orders/Prescriptions Prescriptions: New Eliquis 5 mg Tablet 5 mg PO BID 30 Days Qty: 60 0RF metoprolol tartrate 100 mg Tablet 75 mg PO BID 30 Days Qty: 45 0RF lisinopril 10 mg Tablet 10 mg PO DAILY 30 Days Qty: 30 0RF diltiazem HCl [Cartia XT] 240 mg capsule,extended release 24hr 240 mg PO DAILY Qty: 30 0RF Continued ranitidine HCl [Zantac] 150 mg tablet 150 mg PO QDAY Discontinued aspirin 81 mg tablet,chewable 81 mg PO QDAY Referrals / Follow Up: Chauncey George MD [Med Staff - Active Staff] - Gladis Rodgers MD [Primary Care Provider] - Within 1 Week Disposition Disposition (needs filled in before D/C Order can be placed): Home, Self Care
--- NOTE | 2022-05-11 15:30 | DS.PCM_ITS ---
Documented by User: TONY He 05/11/22 15:34 Providers Date of Admission: 05/10/22 Date of Discharge: 05/11/22 Primary Care Physician: Dr. Gladis Rodgers MD Reason For Visit: ATRIAL FIBRILLATION, PETER Diagnosis Discharge Diagnosis (1) Atrial fibrillation with rapid ventricular response: Status: Acute Code(s): I48.91 - Unspecified atrial fibrillation Plan 1. Atrial fibrillation with RVR -Continue metoprolol 100 mg twice daily initiated along with Eliquis 5 mg daily -P.o. Cardizem increased from 60 mg every 8 hours to Cardizem 60 mg every 6 hours -Digoxin 0.5 IV x1 ordered -Echocardiogram demonstrates EF 35%, mild to moderate mitral valve insufficiency. Pulmonary artery systolic pressure 34 mmHg. -Troponins negative x3 -Vital signs per protocol 2. Elevated BNP -BNP 308 -Patient not hypoxic and no signs or symptoms of heart failure. -Chest x-ray negative for acute findings. 3. Marijuana use -Patient smokes occasionally 4. Alcohol use -Patient reports he drinks 2-3 beers daily DVT prophylaxis-not indicated, patient initiated on Eliquis This patient was seen by TONY He under the supervision of Dr. Casarez. 13 minutes spent in clinical coordination of patient's plan of care. Medications at Discharge Home Medications ranitidine HCl 150 mg tablet (Zantac) 150 mg PO QDAY GERD 03/16/18 apixaban 5 mg tablet (Eliquis) 5 mg PO BID 30 days #60 tabs 05/11/22 diltiazem HCl 240 mg capsule,extended release 24 hr (Cartia XT) 240 mg PO DAILY #30 caps 05/11/22 lisinopril 10 mg tablet 10 mg PO DAILY 30 days #30 tabs 05/11/22 metoprolol tartrate 50 mg tablet 75 mg PO BID #45 tabs 05/11/22 Hospital Course Operations None Procedures 2-D Echocardiogram Summary of Care Provided Minutes Spent on Discharge: 35 Hospital Course: Patient is a 66-year-old male who initially presented to the ER with shortness of breath that has been going on for years but it gradually gotten worse over the past few weeks. Patient states that he has not seen a physician and approximately 3 to 4 years and does not currently take any prescription medications. Patient reports that he takes a baby aspirin as well as [id number] ranitidine for GERD. Patient was noted to be in atrial fibrillation with rapid ventricular response during evaluation in ER and got multiple boluses of IV Cardizem and a loading dose of metoprolol p.o. Patient received p.o. metoprolol as well as p.o. Cardizem and was transitioned from short acting Cardizem to continuous dose Cardizem. Patient also received 1 dose IV digoxin. Patient underwent echocardiogram which demonstrated EF 35%. At time of discharge patient's heart rate was under control at 65 however patient continues to be in atrial fibrillation. Patient will follow-up with PCP as well as Dr. Ulloa of cardiology. Physical Exam Const alert, oriented x3 and no apparent distress General Appearance: cooperative HEENT normocephalic and head/scalp atraumatic Eyes conjunctivae normal and no scleral icterus Neck no lymphadenopathy and supple General: trachea midline Lymph Lymphatic: no lymphadenopathy noted Resp normal respiratory effort, normal air movement and clear to auscultation bilaterally Cardio peripheral pulses 2+ throughout Rate: tachycardic Rhythm: abnormal rhythm irregularly irregular GI normal to inspection, nondistended, normoactive bowel sounds, soft to palpation and non-tender Extremity normal capillary refill and no clubbing, cyanosis or edema Skin General Skin Exam: no breakdown Lesions: no lesions Rashes: no rashes Neuro no focal motor deficits and no sensory deficits noted Psych thought process normal, cooperative and affect normal Weight / BMI Weight Weight: 202 lb 13.204 oz Body Mass Index (BMI) 29.0 ABG / Lab / Microbiology Data Result Diagrams: 05/10/22 09:55 05/10/22 09:55 Laboratory: Laboratory Results - last 24 hr 05/10/22 16:00: Troponin I High Sens 05/11/22 04:39: Triglycerides 74, Cholesterol 161, LDL Cholesterol 91, VLDL Cholesterol 15, HDL Cholesterol 55 Radiography Diagnostic Testing: Radiology Impression Echocardiogram 05/10/22 11:40 Interpretation Summary Normal LV size. Mild concentric left ventricular hypertrophy. Moderately severe global left ventricular systolic dysfunction. Mild-Moderate (1-2+) eccentric mitral valve insufficiency. Pulmonary artery systolic pressure is 34 mmHg. The estimated ejection fraction is 35 %. Contrast injection was performed. Ordering Physician: Dennis Casarez Referring Physician: Gladis Rodgers Performed By: Juana Parra, GARRET, RVT D/C Instructions Discharge Diet: - (Low Sodium Diet) Discharge Activity: Return to Normal Activity Call your doctor if you observe: Shortness of breath, Dizziness, Chest pain and Increased palpitations (irregular heartbeat) Meaningful Use Info Meaningful Use Diagnoses (Choose all that apply): None applicable Discharge Plan Admission Admit Date/Time: 05/10/22 11:30 Primary Reason for Your Visit: New onset Atrial Fibrillation Attending Provider: Dennis Casarez Primary Care Provider: Gladis Rodgers Discharge Orders/Prescriptions Prescriptions: New Eliquis 5 mg Tablet 5 mg PO BID 30 Days Qty: 60 0RF lisinopril 10 mg Tablet 10 mg PO DAILY 30 Days Qty: 30 0RF diltiazem HCl [Cartia XT] 240 mg capsule,extended release 24hr 240 mg PO DAILY Qty: 30 0RF metoprolol tartrate 50 mg tablet 75 mg PO BID Qty: 45 0RF Continued ranitidine HCl [Zantac] 150 mg tablet 150 mg PO QDAY Discontinued aspirin 81 mg tablet,chewable 81 mg PO QDAY Referrals / Follow Up: Isauro Ulloa MD [Med Staff - Active Staff] - Within 1 Month Chauncey George MD [Med Staff - Active Staff] - Gladis Rodgers MD [Primary Care Provider] - Within 1 Week Disposition Disposition (needs filled in before D/C Order can be placed): Home, Self Care Documented by User: Dr. Dennis Casarez DO 05/11/22 17:49 Providers Date of Admission: 05/10/22 Reason For Visit: ATRIAL FIBRILLATION, PETER Diagnosis Discharge Diagnosis (1) Atrial fibrillation with rapid ventricular response: Status: Acute Code(s): I48.91 - Unspecified atrial fibrillation Medications at Discharge Home Medications ranitidine HCl 150 mg tablet (Zantac) 150 mg PO QDAY GERD 03/16/18 apixaban 5 mg tablet (Eliquis) 5 mg PO BID 30 days #60 tabs 05/11/22 diltiazem HCl 240 mg capsule,extended release 24 hr (Cartia XT) 240 mg PO DAILY #30 caps 05/11/22 lisinopril 10 mg tablet 10 mg PO DAILY 30 days #30 tabs 05/11/22 metoprolol tartrate 50 mg tablet 75 mg PO BID #45 tabs 05/11/22 ABG / Lab / Microbiology Data Result Diagrams: 05/10/22 09:55 05/10/22 09:55 Discharge Plan Admission Admit Date/Time: 05/10/22 11:30 Primary Reason for Your Visit: New onset Atrial Fibrillation Attending Provider: Dennis Casarez Primary Care Provider: Gladis Rodgers Discharge Orders/Prescriptions Prescriptions: New Eliquis 5 mg Tablet 5 mg PO BID 30 Days Qty: 60 0RF lisinopril 10 mg Tablet 10 mg PO DAILY 30 Days Qty: 30 0RF diltiazem HCl [Cartia XT] 240 mg capsule,extended release 24hr 240 mg PO DAILY Qty: 30 0RF metoprolol tartrate 50 mg tablet 75 mg PO BID Qty: 45 0RF Continued ranitidine HCl [Zantac] 150 mg tablet 150 mg PO QDAY Discontinued aspirin 81 mg tablet,chewable 81 mg PO QDAY Referrals / Follow Up: Isauro Ulloa MD [Med Staff - Active Staff] - Within 1 Month Chauncey George MD [Med Staff - Active Staff] - Gladis Rodgers MD [Primary Care Provider] - Within 1 Week Disposition Disposition (needs filled in before D/C Order can be placed): Home, Self Care Charges/Coding Addendum Addendum: Patient was seen and examined independently of Sarah Zavala today, he was given IV digoxin today and his Cardizem was increased to control his rate. Earlier this afternoon I placed the patient on time release Cardizem, his rate then decreased into the 60s and 70s. Patient was asymptomatic and he appeared stable for discharge. I talked with his extensively who was in the room at the time my examination and outline possibilities for further care including cardioversion if necessary. I contacted the patient's pharmacy and his Eliquis is covered by his prescription plan-it is over $140 a month however. Xarelto was not covered. On examination he appeared in good health and spirits. Vital signs as documented. Skin warm and dry and without overt rashes. Neck without JVD, neck was supple, trachea midline, thyroid was normal. Lungs clear bilaterally, normal air movement was noted. Heart exam notable for irregular rhythm, normal sounds and absence of murmurs, rubs or gallops. Abdomen unremarkable and without evidence of organomegaly, masses, or abdominal aortic enlargement. Bowel sounds are present, abdomen is not distended. Extremities nonedematous, no cyanosis was noted, no clubbing was noted. Neuro: Cranial nerves II through XII are grossly intact, no focal motor deficits were noted, sensation to light touch and pinprick intact, motor exam 5/5 throughout. Psych: Patient is alert and oriented x3, he does not appear anxious or depressed, he does not appear agitated. Impression: #1 new onset atrial fibrillation with rapid ventricular response-at this time the patient's rate is controlled and I believe he is stable for discharge home, patient will follow-up with cardiology as an outpatient #2 cardiomyopathy-type unknown-this could either be rate dependent or a hype rtensive cardiomyopathy or combination of both. Patient was placed on lisinopril, he will follow-up with cardiology as an outpatient #3 essential hypertension-patient is currently on a beta-la and Cardizem as well as lisinopril. I have reviewed Sarah Zavala's discharge summary including her medical assessment and plan of care and with the above additions endorse it. Total clinical time spent by myself addressing the patient's medical issues, reviewing the data, and collaborating with patient's care team: 25 minutes Visit Charges Inpatient E&M: 10145 Disch Hosp
--- NOTE | 2022-05-11 15:52 | CASEMGMT ---
Pt to be sent home on Eliquis at discharge and med e-scribed Drugmarjairo Tierney. Per tech, pt's co-pay is $112 and pt already provided with Eliquis 30 day free trial card. Pt updated and aware to discuss w/ PCP/cardiology if concerns for next month, voices understanding. Neil MCKEON CM
== END 2022-05-11 16:29 | disposition home or self-care (01) ==
LOC: ED 10:44 → PCU 11:45
PROVIDERS: Admitting Provider Internal Medicine; Emergency Provider Emergency Medicine; PCP Internal Medicine; Visit Provider Internal Medicine
DX: I48.91 Unspecified atrial fibrillation (principal); I42.9 Cardiomyopathy, unspecified; I10 Essential (primary) hypertension; Z87.891 Personal history of nicotine dependence; K21.9 Gastro-esophageal reflux disease without esophagitis; Z79.82 Long term (current) use of aspirin; E78.5 Hyperlipidemia, unspecified; R06.02 Shortness of breath
CPT/HCPCS: 36415; 71046; 80048; 80061; 83880; 84484; 85025; 93005; 93306; 96374; 96375; 96376; 99218; 99285; Q9957; A4216; C8929; G0378

== ENCOUNTER → 2022-06-09 | Outpatient (CLI) | payer MEDICARE, SELFPAY ==
[2022-06-09 15:27] LABS: Anion Gap 6 (5-15); BUN 20 mg/dL (7-18); Chloride 105 mmol/L (98-107); Creatinine, Serum 1.25 mg/dL (0.70-1.30); EST Glomerular Filtration Rate 61 mL/min (>60); Est Glom Filt Rate - Afr Amer 74 mL/min (>60); Glucose 108 mg/dL (74-106); Potassium 4.6 mmol/L (3.5-5.1); Sodium Level 138 mmol/L (136-145)
== END | disposition home or self-care (01) ==
LOC: LAB 14:49
PROVIDERS: PCP Internal Medicine; Referring Provider Internal Medicine Cardiovascular Disease; Visit Provider Internal Medicine Cardiovascular Disease
DX: I48.91 Unspecified atrial fibrillation (principal); I50.20 Unspecified systolic (congestive) heart failure; I42.9 Cardiomyopathy, unspecified; E78.5 Hyperlipidemia, unspecified
CPT/HCPCS: 36415; 80048

== ENCOUNTER 2022-06-14 10:47 | Day surgery (SDC) | payer MEDICARE, SELFPAY ==
[2022-06-11 08:15] VITALS: BMI 29.1
--- NOTE | 2022-06-14 12:40 | PCM.OP.BLANK ---
Problems Associated Problem List Diagnoses (1) Atrial fibrillation, new onset: (2) Cardiomyopathy: Operative Report Date of Procedure: 06/14/22 DC cardioversion. 66-year-old man with a history of atrial fibrillation recent onset and cardiomyopathy. The patient was brought to the cardiac catheterization lab in the postabsorptive nonsedated state. Informed consent was obtained. He was seen by Dr. Otto of the critical care division. Anterior-posterior pads were applied. The patient was administered 6 mg of intravenous etomidate. 200 J of biphasic cardioversion energy were applied with prompt reversal to sinus rhythm. Patient tolerated the procedure well. Plan Continue anticoagulation Reduce metoprolol to 50 mg twice a day. Discontinue diltiazem. Follow-up as per office protocol.
--- NOTE | 2022-06-14 12:46 | PCM.OP.PRO ---
Procedure Report Date of Procedure: 06/14/22 CONSCIOUS SEDATION REPORT DATE OF SERVICE: June 14, 2022 BRIEF HISTORY OF PRESENT ILLNESS: The patient is a 66-year-old male who presented to [facility] for an elective outpatient cardioversion due to underlying atrial fibrillation. The patient is systemically anticoagulated on Eliquis with an ejection fraction of approximately 35%. He is a former smoker without any official diagnosis of COPD or asthma. He denies having been diagnosed with sleep apnea. He denies any prior anesthetic complications. He has never undergone a prior cardioversion. PHYSICAL EXAMINATION: VITAL SIGNS: Reviewed and were acceptable. GENERAL: The patient is a male, in no apparent distress, speaking in full sentences. HEENT: Normocephalic, atraumatic. Mucous membranes are moist and pink. Good mouth opening noted. Trachea is midline. Good neck mobility. CHEST: S1, S2 irregularly irregular. No murmurs, rubs or gallops were noted. LUNGS: Clear to auscultation bilaterally without appreciable wheezes, rales or rhonchi. ABDOMEN: Soft, nontender, nondistended. Positive bowel sounds. EXTREMITIES: There is no clubbing, cyanosis or edema. ASA Class: II DESCRIPTION OF PROCEDURE: After confirmation of informed consent, the patient's anesthesia plan was reviewed in detail. Etomidate was chosen. Risks and benefits were reviewed and the patient agreed to proceed. At 1234, the patient was given 6 mg of etomidate. The patient achieved an appropriate level of sedation and was given a 200 joule synchronized cardioversion by Dr. Ulloa at the bedside. This was successful in achieving normal sinus rhythm. The patient was monitored until 1246, at which time he reached his baseline mental status and function. The patient tolerated the procedure well. COMPLICATIONS: None ESTIMATED BLOOD LOSS: None RECOMMENDATIONS: Okay to recover in usual fashion. Procedures Pulmonary 9xxxx: [id number] Con Sedation
== END 2022-06-14 13:40 | disposition home or self-care (01) ==
PROVIDERS: PCP Internal Medicine; Visit Provider Internal Medicine Cardiovascular Disease
DX: I48.91 Unspecified atrial fibrillation (principal); I42.9 Cardiomyopathy, unspecified; Z79.899 Other long term (current) drug therapy
CPT/HCPCS: 92960; 93005; J7040

== ENCOUNTER → 2022-06-22 | Outpatient (CLI) | payer MEDICARE, SELFPAY ==
[2022-06-22 15:05] LABS: PSA,Total - Annual Screen 1.89 ng/mL (0.00-4.00)
== END | disposition home or self-care (01) ==
PROVIDERS: PCP Internal Medicine; Referring Provider Internal Medicine; Visit Provider Internal Medicine
DX: Z12.5 Encounter for screening for malignant neoplasm of prostate (principal)
CPT/HCPCS: 36415; 84153; G0103

== ENCOUNTER 2022-07-27 10:07 | Day surgery (SDC) | payer MEDICARE, SELFPAY ==
[2022-07-14 11:46] LABS: Anion Gap 5 (5-15); BUN 17 mg/dL (7-18); Calcium,Total 9.2 mg/dL (8.5-10.1); Chloride 106 mmol/L (98-107); Creatinine, Serum 1.21 mg/dL (0.70-1.30); EST Glomerular Filtration Rate 63 mL/min (>60); Est Glom Filt Rate - Afr Amer 77 mL/min (>60); Glucose 90 mg/dL (74-106); Potassium 4.2 mmol/L (3.5-5.1); Sodium Level 138 mmol/L (136-145)
[2022-07-26 08:36] VITALS: BMI 29.1
--- NOTE | 2022-07-26 16:08 | HP.PCM_ITS ---
History and Physical Date of Admission: 07/27/22 This is a pleasant 67-year-old man who presents today for a cardioversion. On May 10, patient presented to the hospital with palpitations and shortness of breath.? He was noted to be in atrial fibrillation with a rapid ventricular response rate.? He thinks that this has been going on for at least 2 years.? He had not seen a physician in 3 to 4 years and was not on any medication.? He received intravenous diltiazem as well as digoxin.? His heart rate appeared to be under good control and he was discharged on a beta-la, calcium channel la, and Eliquis.? He was also noted to have mildly elevated natriuretic peptide level but was not put on a diuretic. His echocardiogram demonstrated moderately severe global left ventricular systolic function estimated to be 35% with mild to moderate mitral regurgitation and mild to moderate tricuspid regurgitation.?In May of this year, he did undergo a cardioversion, which was unsuccessful. He was started on amiodarone, and his beta-la was increased at that time as well. He also has a history of hyperlipidemia. Intake Vital Signs: See EMR Allergies codeine Allergy Swelling Medications diltiazem HCl 240 mg capsule,extended release 24 hr (Cartia XT) 240 mg PO DAILY #30 caps 05/26/22 [Rx Confirmed 06/09/22] famotidine 20 mg tablet (Acid Spray Drier Operator Helper (famotidine)) 20 mg PO DAILY #90 tabs 05/26/22 [Rx Confirmed 06/09/22] lisinopril 10 mg tablet 10 mg PO DAILY #30 tabs 05/26/22 [Rx Confirmed 06/09/22] metoprolol tartrate 50 mg tablet 75 mg PO BID #90 tabs 05/26/22 [Rx Confirmed 06/09/22] apixaban 5 mg tablet (Eliquis) 5 mg PO BID #60 tabs 06/09/22 [Rx Confirmed 06/09/22] Ejection fraction %: 35 to 39 PFSH Medical History? Arthritis Atrial fibrillation with rapid ventricular response (05/10/22) Cardiomyopathy ETOH abuse GERD (gastroesophageal reflux disease) HFrEF (heart failure with reduced ejection fraction) Irregular heart beat Marijuana use Seasonal allergies Surgical History? History of facial surgery History of surgery on arm Family History? Father Myocardial infarction,? Onset Age: 45 Cancer ?? ? prostate Social History? Smoking Status:? Never smoker how long ago did patient quit smoking:? 2004 alcohol intake:? never substance use type:? does not use what type of physical activity do you participate in:? bicycling frequency:? daily ROS Const Const: Negative for fatigue, weakness, headache(s), frequent falls, difficulty sleeping or excessive sweating Eyes Eyes: Negative for loss of peripheral vision, transient loss of vision, blurry vision, double vision or tunnel vision ENT ENT: Negative for headache(s), dizziness, Nosebleed/epistaxis or balance problems Cardio Chest Pain: No Palpitations: No Edema: None Muscle aches with walking: None Resp Respiratory: Negative for SOB with activity, SOB at rest, SOB orthopnea\SOB lying down, Cough or paroxysmal nocturnal dyspnea GI GI: Negative nausea, vomiting, heartburn or black,tarry stools : Negative for hematuria Musc Musc: Negative for muscle aches/ myalgia, muscle weakness, joint pain or balance problems Skin Skin: Negative non-healing lesions, rash or unusual bruising Neuro Neuro: Negative for dizziness, lightheadedness, near syncope, syncope, orthostatic symptoms, frequent falls, headache(s), weakness, confusion, memory loss, blurry vision, double vision, vertigo or lack of coordination Julian Hematologic/Lymphatic: Negative for easy bleeding or easy bruising Endo Endo: Negative for fatigue, excessive sweating, flushing or increased thirst/drinking Psych Psych: Negative for anxiety or depression Allergy Allergy/Immunology: Negative for hives and Negative for rash Cardiology Exam Const Appearance: cooperative, healthy appearing, no acute distress, well developed and well groomed Nutritional Appearance: average body habitus and well nourished Orientation: alert, awake and oriented x3 Head Head: normal to inspection, normocephalic and atraumatic Ears: hearing grossly normal bilaterally and external ears normal Nose: external nose normal, nares normal, nasal mucous membranes and turbinates normal, septum normal and no nasal discharge Face and Sinus: face symmetric Mouth: oral mucosae normal, tongue normal, oropharynx normal and moist mucous membranes Teeth and gingiva: dentition normal Throat: posterior oropharynx normal, tonsils normal and uvula midline Eyes General: appearance normal, both eyes and all related structures Eyelids: eyelids normal Conjunctivae: conjunctivae normal Pupils: PERRL, normal by confrontation and accommodation normal EOM: EOM intact bilaterally Neck Neck: normal visual inspection, trachea midline and no JVD JVD: +5 Carotids: normal carotid upstroke and bounding pulses Chest Chest inspection: normal inspection of the chest, symmetric chest movement and normal respiratory effort Auscultation: Bilateral: Clear to Auscultation Cardio Palpation: normal PMI Rate: regular rate Rhythm: irregularly irregular Heart sounds: S1 normal, S2 normal and normal, physiologic split S2; Negative rub, gallop or murmur GI GI: normal to inspection, soft, no hepatosplenomegaly and bowel sounds present Neuro General: patient alert, patient awake, patient oriented x3, gait normal, moves all extremities and no focal sensory deficit Skin Skin: no rashes or lesions noted Extremities Pulses: Normal: Right Femoral Pulse, Left Femoral Pulse, Right Dorsalis Pedis Pulse, Left Dorsalis Pedis Pulse, Right Posterior Tibial Pulse, Left Posterior Tibial Pulse, Right Radial Pulse and Left Radial Pulse Lower Extremity Edema: None: Bilateral Musculoskel Musculoskeletal: No joint tenderness Psych Psychological: normal affect Supplemental Info Supplemental Information ECHOCARDIOGRAM? 05/10/22 Interpretation Summary Normal LV size. Mild concentric left ventricular hypertrophy. Moderately severe global left ventricular systolic dysfunction. Mild-Moderate (1-2+) eccentric mitral valve insufficiency. Pulmonary artery systolic pressure is 34 mmHg. The estimated ejection fraction is 35 %. Contrast injection was performed. Laboratory Tests ? 05/10/22 05/11/22 ? 09:55 04:39 B-Natriuretic Peptide ?305.5 H ? Triglycerides ? ?74 Cholesterol ? ?161 LDL Cholesterol ? ?91 HDL Cholesterol ? ?55 Labs: ?? ? LDL Cholesterol 91 mg/dL (0-130) ?? ? HDL Cholesterol 55 mg/dL (40-) ?? ? Triglycerides 74 mg/dL (-199) ?? ? VLDL Cholesterol 15 mg/dL (5-40) Diagnostics: ?? ? Electrocardiogram ? Echocardiogram ? Chest X-Ray ? Pulmonary: ?? ? No Data to Display Assessment & Plan Assessment/Plan (1) Atrial fibrillation with rapid ventricular response: (2) HFrEF (heart failure with reduced ejection fraction): (3) Cardiomyopathy: PLAN: Plan Patient presents today for a cardioversion. He has been anticoagulated. His follow up is based on success of cardioversion.
--- NOTE | 2022-07-27 12:09 | PCM.OP.BLANK ---
Problems Associated Problem List Diagnoses (1) Atrial fibrillation, new onset: Operative Report Date of Procedure: 07/27/22 DC cardioversion. 67-year-old male with a history of atrial flutter. Patient has been compliant with his anticoagulation regimen. The patient was seen by Dr. Otto of the critical care division. Informed consent was obtained. Anterior-posterior pads were applied. The patient was administered 6 mg of intravenous etomidate. 200 J of biphasic energy were applied with prompt reversal to sinus rhythm. Patient tolerated the procedure well. Conclusion: Successful DC cardioversion from atrial fibrillation flutter to sinus rhythm. Follow-up as per office protocol.
--- NOTE | 2022-07-27 13:19 | PRO.PCM_ITS ---
Procedure Report Date of Procedure: 07/27/22 CONSCIOUS SEDATION REPORT DATE OF SERVICE: July 27, 2022 BRIEF HISTORY OF PRESENT ILLNESS: The patient is a 67-year-old male who presented to [facility] for an elective outpatient cardioversion due to underlying atrial fibrillation. The patient underwent a prior cardioversion in May 2022. He denied any prior anesthetic complications. His last surface echocardiogram demonstrated an ejection fraction of 35%. He is currently anticoagulated on Eliquis. The vane ent is a former smoker without any diagnosis of COPD or asthma. PHYSICAL EXAMINATION: VITAL SIGNS: Reviewed and were acceptable. GENERAL: The patient is a male, in no apparent distress, speaking in full sentences. HEENT: Normocephalic, atraumatic. Mucous membranes are moist and pink. Good mouth opening noted. Trachea is midline. Good neck mobility. CHEST: S1, S2 irregularly irregular. No murmurs, rubs or gallops were noted. LUNGS: Clear to auscultation bilaterally without appreciable wheezes, rales or rhonchi. ABDOMEN: Soft, nontender, nondistended. Positive bowel sounds. EXTREMITIES: There is no clubbing, cyanosis or edema. ASA Class: II DESCRIPTION OF PROCEDURE: After confirmation of informed consent, the patient's anesthesia plan was reviewed in detail. Etomidate was chosen. Risks and benefits were reviewed and the patient agreed to proceed. At 1202, the patient was given 6 mg of etomidate. The patient achieved an appropriate level of sedation and was given a 200 joule synchronized cardioversion by Dr. Ulloa at the bedside. This was successful in achieving normal sinus rhythm. The patient was monitored until 1215, at which time he reached his baseline mental status and function. The patient tolerated the procedure well. COMPLICATIONS: None ESTIMATED BLOOD LOSS: None RECOMMENDATIONS: Okay to recover in usual fashion. Procedures Pulmonary 9xxxx: [id number] Con Sedation
== END 2022-07-27 13:10 | disposition home or self-care (01) ==
PROVIDERS: PCP Internal Medicine; Referring Provider Internal Medicine Cardiovascular Disease; Visit Provider Internal Medicine Cardiovascular Disease
DX: I48.91 Unspecified atrial fibrillation (principal); I50.22 Chronic systolic (congestive) heart failure; I42.9 Cardiomyopathy, unspecified; Z79.01 Long term (current) use of anticoagulants; Z79.899 Other long term (current) drug therapy
CPT/HCPCS: 36415; 80048; 92960; 93005; J7040

== ENCOUNTER → 2022-10-11 | Outpatient (CLI) | payer MEDICARE, SELFPAY ==
--- NOTE | 2022-10-11 13:48 | ECHOL_ITS ---
Reason For Study: HFrEF, Afib Procedure This was a limited 2D transthoracic echocardiogram. Exam performed in department. Left Ventricle Normal LV size. Left ventricular systolic function is normal. The estimated ejection fraction is 55 %. No regional wall motion abnormalities noted. Right Ventricle Normal RV size. Normal systolic function. Atria Normal left atrium. Normal right atrium. Mitral Valve Normal mitral valve. Mild (1+) eccentric mitral valve insufficiency. Tricuspid Valve Normal tricuspid valve. Mild tricuspid valve insufficiency. Pulmonary artery systolic pressure is 26 mmHg. Aortic Valve Trisinus/trileaflet aortic valve. Pulmonic Valve Normal pulmonic valve. Great Vessels Normal aortic root. The pulmonary artery is normal size. Normal inferior vena cava. Pericardium/Pleural No pericardial effusion. MMode/2D Measurements & Calculations LVIDd: 5.2 cm IVSd: 1.2 cm LVAd ap4: 25.5 cm2 LVIDs: 3.3 cm LVPWd: 1.1 cm LVLd ap4: 7.3 cm FS: 36.0 % EDV(MOD-sp4): 76.4 ml EDV(sp4-el): 75.9 ml LVAs ap4: 15.0 cm2 LVLs ap4: 6.5 cm ESV(MOD-sp4): 31.2 ml ESV(sp4-el): 29.4 ml EF(MOD-sp4): 59.2 % EF(sp4-el): 61.3 % SV(MOD-sp4): 45.2 ml SV(sp4-el): 46.5 ml Doppler Measurements & Calculations TR max jair: 237.7 cm/sec TR max P.6 mmHg ECHO/Echo, Limited Study Interpretation Summary Normal LV size. Left ventricular systolic function is normal. The estimated ejection fraction is 55 %. Mild (1+) eccentric mitral valve insufficiency. Pulmonary artery systolic pressure is 26 mmHg. Ordering Physician: Dixie Haynes Referring Physician: Gladis Rodgers Performed By: Juana Parra RDCS, RVT
== END | disposition home or self-care (01) ==
PROVIDERS: PCP Internal Medicine; Visit Provider Nurse Practitioner Gerontology
DX: I48.91 Unspecified atrial fibrillation (principal); I50.20 Unspecified systolic (congestive) heart failure; Z79.899 Other long term (current) drug therapy
CPT/HCPCS: 93308

== ENCOUNTER → 2022-11-08 | Outpatient (CLI) | payer MEDICARE, SELFPAY ==
[2022-11-08 13:23] LABS: ALB/GLOB Ratio 0.9 RATIO (0.9-2.4); AST(SGOT) 13 U/L (15-37); Alanine Aminotransfer ALT/SGPT 20 U/L (16-61); Albumin, Serum 3.6 g/dL (3.2-5.0); Alkaline Phosphatase 55 U/L (45-117); Anion Gap 6 (5-15); BUN 17 mg/dL (7-18); BUN/Creat Ratio 15.2 RATIO (10-20); Calcium,Total 9.1 mg/dL (8.5-10.1); Chloride 108 mmol/L (98-107); Creatinine, Serum 1.12 mg/dL (0.70-1.30); EST Glomerular Filtration Rate 69 mL/min (>60); Est Glom Filt Rate - Afr Amer 84 mL/min (>60); Glucose 87 mg/dL (74-106); Protein, Total 7.6 g/dL (6.4-8.2); Sodium Level 139 mmol/L (136-145); Thyroid Stim Hormone (TSH) 0.74 uIU/mL (0.358-3.74)
== END | disposition home or self-care (01) ==
PROVIDERS: PCP Internal Medicine; Referring Provider Nurse Practitioner Gerontology; Visit Provider Nurse Practitioner Gerontology
DX: Z79.899 Other long term (current) drug therapy (principal); I48.91 Unspecified atrial fibrillation
CPT/HCPCS: 36415; 80053; 84443

== ENCOUNTER → 2022-12-07 | Outpatient (CLI) | payer MEDICARE, SELFPAY ==
--- NOTE | 2022-12-07 15:10 | PFTCOMP_ITS ---
COMPLETE PULMONARY FUNCTION TEST INTERPRETATION Brief HPI: Patient is a 67-year-old male, currently under the care of myself, who presents to [facility] for complete pulmonary function tests secondary to diagnosis of high risk med use. Respiratory therapist reports good effort and reproducible results. Interpretation: Forced expiration spirometry shows no large airways obstructive ventilatory defect with an FEV1 of 77% predicted. There is no significant bronchodilator response by strict ATS criteria. Spirograms are of good quality and plateau normally. The respiratory flow volume loop shows a normal pattern. Lung volumes by body plethysmography show a normal total lung capacity at 6.79 L, 104% predicted. All other lung volumes are within normal limits. Diffusion capacity by carbon monoxide is normal at 98% predicted. The airway resistance is elevated. No previous pulmonary function tests were available for review. Impression: Grossly normal pulmonary function tests. There is no indication for discontinuation of amiodarone therapy at this time
== END | disposition home or self-care (01) ==
LOC: PSN 12:30
PROVIDERS: PCP Internal Medicine; Referring Provider Nurse Practitioner Gerontology; Visit Provider Nurse Practitioner Gerontology
DX: Z79.899 Other long term (current) drug therapy (principal)
CPT/HCPCS: 94060; 94726; 94729

== ENCOUNTER → 2023-02-16 | Outpatient (CLI) | payer MEDICARE, SELFPAY ==
[2023-02-16 10:32] LABS: Absolute Lymphocyte Count 1.38 X10^3/uL (0.83-4.51); Absolute Neutrophil Count 4.9 X10^3/uL (2.0-7.7); Basophil# 0.07 X10^3/uL; Eosinophil# 0.16 X10^3/uL; Eosinophils% 2.3 % (0-5); Hematocrit 40.5 % (40-54); Hemoglobin 13.4 g/dL (13.0-16.5); Lymphocyte # 1.38 X10^3/ul (0.83-4.51); Lymphocyte % 19.7 % (19-41); Mean Corp Hgb Conc 33.1 g/dL (32-36); Mean Corpuscular Volume 96.7 fL (80-94); Mean Platelet Vol. 9.5 fl (6.2-12.0); Monocyte# 0.46 X10^3/uL; Monocyte% 6.6 % (0-10); NRBC Flagged by Analyzer 0 % (0-5); Neutrophil # 4.87 X10^3/uL (2.7-7.7); Neutrophil % 69.7 % (47-70); Platelet Count 228 K/mm3 (150-450); RBC Distribution Width CV 13.6 % (11.6-14.6); RBC Distribution Width SD 48.2 fl (35.1-43.9); Red Blood Count 4.19 M/mm3 (4.6-6.2)
[2023-02-16 10:54] LABS: BNP,B-Type NATRIURETIC PEPTIDE 51.2 pg/mL (0-100)
[2023-02-16 10:56] LABS: Anion Gap 6 (5-15); BUN 15 mg/dL (7-18); Calcium,Total 8.9 mg/dL (8.5-10.1); Chloride 109 mmol/L (98-107); EST Glomerular Filtration Rate 79 mL/min (>60); Est Glom Filt Rate - Afr Amer 96 mL/min (>60); Glucose 105 mg/dL (74-106); Potassium 4.1 mmol/L (3.5-5.1); Sodium Level 139 mmol/L (136-145)
== END | disposition home or self-care (01) ==
LOC: LAB 09:43
PROVIDERS: PCP Internal Medicine; Referring Provider Nurse Practitioner Gerontology; Visit Provider Nurse Practitioner Gerontology
DX: I42.9 Cardiomyopathy, unspecified (principal); R06.09 Other forms of dyspnea; R53.83 Other fatigue
CPT/HCPCS: 36415; 80048; 83880; 85025

== ENCOUNTER → 2023-03-21 | Outpatient (CLI) | payer MEDICARE, SELFPAY ==
--- NOTE | 2023-03-21 15:26 | STRESSREP ---
Stress Test Report Exercise myocardial perfusion stress test. 67-year-old man with a history of atrial fibrillation Stress protocol: Resting EKG demonstrates normal sinus rhythm with a rate of 70 bpm resting blood pressure is 142/84 mmHg. The patient exercised according to the regular Nicholas protocol for a total duration of 4 minutes and 30 seconds attaining a maximum heart rate of 142 bpm which was 93% of maximum predicted heart rate; the maximum workload was 7 metabolic equivalents. At rest there were no ST or T wave changes noted to suggest ischemia and at peak exercise horizontal ST depression of approximately 1.8 to 2 mm were noted in leads II, III and aVF suggestive of ischemia and upsloping [address] depression noted in lead V5 and V6. No clinical angina was noted the test was terminated due to the target heart rate being achieved/fatigue and shortness of breath. The peak blood pressure was 222/94 mmHg. Rate-pressure product was 24,200. Above was a hypertensive response to exercise. Myocardial perfusion protocol. 15.0 mCi of technetium 99m sestamibi was injected at rest. The patient exercised according to regular Nicholas protocol for total duration of 4 minutes and 30 seconds and at peak exercise 45 mCi of technetium 99m sestamibi was injected stress images were obtained stress and rest images were reconstructed in comparing the short axis vertical long and horizontal long axis. Gated images were also obtained. Perfusion SPECT analysis: Review of the stress images demonstrate normal uptake of tracer noted in all areas of the myocardium. The resting images similarly demonstrate normal uptake of tracer noted in all areas of the myocardium. No areas of reversibility are noted to suggest ischemia no previous infarct was noted. Gated SPECT analysis: The gated ejection fraction is 62%. Conclusion: Normal exercise myocardial perfusion stress test at a moderate workload Preserved ejection fraction. EKG changes suggestive of ischemia and a hypertensive response to exercise No atrial fibrillation noted
== END | disposition home or self-care (01) ==
PROVIDERS: PCP Internal Medicine; Referring Provider Nurse Practitioner Gerontology; Visit Provider Nurse Practitioner Gerontology
DX: R06.02 Shortness of breath (principal); I48.91 Unspecified atrial fibrillation; R53.83 Other fatigue
CPT/HCPCS: 78452; 93017; A9500; A4216

== ENCOUNTER 2023-04-05 15:38 | Observation (INO) | payer MEDICARE, SELFPAY ==
--- NOTE | 2023-03-28 08:37 | RAD_ITS ---
INDICATION: Abnormal Stress Test EXAMINATION/TECHNIQUE: X-RAY - XR Chest 2 Views COMPARISON: No previous relevant examinations available for comparison.. FINDINGS: LIFE-SUPPORT AND LINES: 1. None HEART AND VESSELS: The cardiac silhouette, pulmonary vasculature have normal appearance. No evidence of congestive failure. LUNGS AND PLEURAL SPACES: Lungs are clear. No focal infiltrate, consolidation or effusions. No evidence of pneumothorax. No pulmonary mass is noted. MEDIASTINUM AND HILAR REGIONS: No masses adenopathy noted. No areas of calcification. Visualized upper airway is normal in position. BONY ELEMENTS: Thoracic spondylosis and mild dextroscoliotic curvature. RAD/Chest PA and Lateral IMPRESSION: 1. No evidence of acute cardiopulmonary process Electronically Signed: Roby Trejo MD at 1:42 EDT ,
[2023-03-28 08:53] LABS: Absolute Lymphocyte Count 1.27 X10^3/uL (0.83-4.51); Absolute Neutrophil Count 4.1 X10^3/uL (2.0-7.7); Basophil# 0.06 X10^3/uL; Eosinophil# 0.21 X10^3/uL; Eosinophils% 3.5 % (0-5); Hematocrit 42.6 % (40-54); Hemoglobin 14.1 g/dL (13.0-16.5); Lymphocyte # 1.27 X10^3/ul (0.83-4.51); Lymphocyte % 21.1 % (19-41); Mean Corp Hgb Conc 33.1 g/dL (32-36); Mean Corpuscular Hgb 32.4 pg (27.0-32.0); Mean Corpuscular Volume 97.9 fL (80-94); Mean Platelet Vol. 9.6 fl (6.2-12.0); Monocyte# 0.34 X10^3/uL; Monocyte% 5.6 % (0-10); NRBC Flagged by Analyzer 0 % (0-5); Neutrophil % 68.1 % (47-70); Platelet Count 198 K/mm3 (150-450); RBC Distribution Width CV 13.2 % (11.6-14.6); RBC Distribution Width SD 47.8 fl (35.1-43.9); Red Blood Count 4.35 M/mm3 (4.6-6.2)
[2023-03-28 09:19] LABS: Anion Gap 4 (5-15); BUN 12 mg/dL (7-18); BUN/Creat Ratio 10.7 RATIO (10-20); Calcium,Total 8.6 mg/dL (8.5-10.1); Chloride 112 mmol/L (98-107); Creatinine, Serum 1.12 mg/dL (0.70-1.30); EST Glomerular Filtration Rate 69 mL/min (>60); Est Glom Filt Rate - Afr Amer 84 mL/min (>60); Glucose 128 mg/dL (74-106); Potassium 3.8 mmol/L (3.5-5.1); Sodium Level 139 mmol/L (136-145)
--- NOTE | 2023-03-30 12:36 | HP.PCM_ITS ---
History and Physical Date of Admission: 04/05/23 This is a pleasant 67-year-old man who presents to the cardiac test lab technician for a cardiac catheterization. He has a history of hyperlipidemia who presented to the hospital on May 10, 2022 with palpitations and shortness of breath. He was noted to be in atrial fibrillation with a rapid ventricular response rate. He thinks that this has been going on for at least 2 years. He had not seen a physician in 3 to 4 years and was not on any medication. He received intravenous diltiazem as well as digoxin. His heart rate appeared to be under good control and he was discharged on beta-la and calcium channel la. He was also noted to have mildly elevated natruretic peptide level but was not put on a diuretic. His echocardiogram demonstrated moderately severe global left ventricular systolic function estimated to be 35% with mild to moderate mitral regurgitation and mild to moderate tricuspid regurgitation. Patient had successful cardioversion on 06/14/2022. EKG follow-up on 06/22/2022 showed atrial fibrillation with RVR and he was started on amiodarone therapy. EKG follow-up on 06/30/2021 continued to show atrial fibrillation. He proceeded with a cardioversion on 07/27/2022 with amiodarone assistance. From a cardiac standpoint, the patient is doing well. He denies any palpitations, chest pain, pressure or heaviness. He does have an occasional SOB with exertion. He states this worsening. He denies Orthopnea, and PND. He does not have bleeding issues; no blood in urine, stool or nosebleeds. He does acknowledge fatigue. He denies myalgias, or claudication. He does not have edema, or sudden weight gain. He does have an occasional lightheadedness with quick positional changes. He denies dizziness, syncopal or near syncopal episodes, and headaches. His blood pressures at home average 120-130's/70-80's. Intake Vital Signs See EMR Allergies See EMR Medications See EMR Ejection fraction %: 55 to 59 [facility] Medical History Arthritis Atrial fibrillation with rapid ventricular response (05/10/22) Cardiomyopathy ETOH abuse GERD (gastroesophageal reflux disease) HFrEF (heart failure with reduced ejection fraction) Irregular heart beat Marijuana use Prostate cancer screening Seasonal allergies Surgical History History of cardioversion (06/14/22) History of facial surgery History of surgery on arm Family History Father Myocardial infarction, Onset Age: 45 Cancer prostate Social History Smoking Status: Never smoker how long ago did patient quit smokin alcohol intake: never substance use type: does not use what type of physical activity do you participate in: bicycling frequency: daily ROS Const Const: Positive for fatigue; Negative for weakness, fever(s), headache(s), chills, frequent falls, weight gain or weight loss Eyes Eyes: Negative for blind spots, loss of peripheral vision, transient loss of vision, blurry vision, change in vision, double vision, floaters or tunnel vision ENT ENT: Negative for headache(s), dizziness, Nosebleed/epistaxis, balance problems or neck pain Cardio Chest Pain: No Palpitations: No Edema: None Muscle aches with walking: None Resp Respiratory: Positive for SOB with activity (worsening); Negative for SOB at rest or SOB orthopnea\SOB lying down GI GI: Negative nausea, vomiting, heartburn, bloating, vomiting blood/hematemesis, bright, red blood in stools or black,tarry stools Musc Musc: Negative for muscle aches/ myalgia, muscle weakness, joint pain or balance problems Neuro Neuro: Positive for lightheadedness (occasional with quick positional changes); Negative for dizziness, near syncope, syncope, orthostatic symptoms, frequent falls, headache(s), weakness, blurry vision or double vision Julian Hematologic/Lymphatic: Negative for easy bleeding or easy bruising Endo Endo: Positive for fatigue Cardiology Exam Const Appearance: cooperative, healthy appearing, no acute distress, well developed and well groomed Nutritional Appearance: average body habitus, well nourished and obese Orientation: alert, awake and oriented x3 Head Head: normal to inspection Ears: hearing grossly normal bilaterally Nose: external nose normal Face and Sinus: face symmetric Eyes General: appearance normal, both eyes and all related structures Eyelids: eyelids normal Conjunctivae: conjunctivae normal Pupils: PERRL, normal by confrontation and accommodation normal EOM: EOM intact bilaterally Neck Neck: normal visual inspection, trachea midline and no JVD JVD: +5 Carotids: normal carotid upstroke and bounding pulses Chest Chest inspection: normal inspection of the chest, symmetric chest movement and normal respiratory effort Auscultation: Bilateral: Clear to Auscultation Cardio Palpation: normal PMI Rate: bradycardic Rhythm: regular rhythm Heart sounds: S1 normal, S2 normal and normal, physiologic split S2; Negative rub, gallop or murmur GI GI: normal to inspection, soft and obese Neuro General: patient alert, patient awake, patient oriented x3, gait normal, moves all extremities and no focal sensory deficit Skin Skin: no rashes or lesions noted Extremities Pulses: Normal: Right Posterior Tibial Pulse, Left Posterior Tibial Pulse, Right Radial Pulse and Left Radial Pulse Lower Extremity Edema: None: Bilateral Musculoskel Musculoskeletal: No joint tenderness Psych Psychological: normal affect Supplemental Info Supplemental Information Echocardiogram 10/11/2022: Interpretation Summary Normal LV size. Left ventricular systolic function is normal. The estimated ejection fraction is 55 %. Mild (1+) eccentric mitral valve insufficiency. Pulmonary artery systolic pressure is 26 mmHg. ECHOCARDIOGRAM 05/10/22 Interpretation Summary Normal LV size. Mild concentric left ventricular hypertrophy. Moderately severe global left ventricular systolic dysfunction. Mild-Moderate (1-2+) eccentric mitral valve insufficiency. Pulmonary artery systolic pressure is 34 mmHg. The estimated ejection fraction is 35 %. Contrast injection was performed. Assessment and Plan Assessment and Plan (1) Abnormal Stress Test: Patients most recent stress test from 11/29/2022 demonstrated normal exercise myocardial perfusion stress test at a moderate workload, preserved ejection fraction, EKG changes suggestive of ischemia and a hypertensive response to exercise. The patient exercised according to the regular Nicholas protocol for a total duration of 4 minutes and 30 seconds. Would like to obtain a cardiac catheterization to further assess this. Depending on results, further recommendations will be made. (2) HFrEF (heart failure with reduced ejection fraction): Status: Acute Plan: Patient has a history of heart failure with reduced ejection fraction. This has improved. His most recent echocardiogram from 10/11/2022 demonstrated an ejection fraction of 55%. He will continue losartan 50mg twice daily, and metoprolol tartrate 25mg twice daily. He will continue to monitor for any concerning symptoms. (3) Atrial fibrillation, new onset: Status: Acute Plan: Patient has a history of atrial fibrillation. His echocardiogram from 10/11/2022 demonstrated an ejection fraction of 55%, and normal atrial size. He underwent a successful cardioversion on 07/27/2022. He denies any reoccurrence of atrial fibrillation. He will will continue amiodarone 200mg daily, metoprolol tartrate 25mg twice daily, and Eliquis 5mg twice daily. He will continue to monitor for any concerning symptoms of atrial fibrillation. (4) Hyperlipidemia: Status: Acute Plan: Patient has a history of hyperlipidemia. His PCP monitors this. His most recent lipid panel from 05/11/2022: cholesterol 161, HDL 55, LDL 91, triglycerides 74. He will continue with aggressive risk factor and lifestyle modifications. (5) PETER (dyspnea on exertion): Status: Acute Plan: Patient acknowledges worsening PETER. With his abnormal stress test, would like to obtain a cardiac catheterization to further assess this. Depending on results, further recommendations will be made. (6) Fatigue: Status: Acute Plan: Patient acknowledges fatigue. With his abnormal stress test, would like to obtain a cardiac catheterization to further assess this.
[2023-04-04 07:56] VITALS: BMI 30.2
[2023-04-05] VITALS (17 sets, daily range): BP systolic 143–196; BP diastolic 87–112; PULSE 49–64; RESP 11–17; TEMP 35.8–36.6; O2SAT 96–100; BMI 30.2
--- NOTE | 2023-04-05 08:56 | CL.D_ITS ---
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 RECOMMENDATIONS Referred for immediate PCI DESCRIPTION OF PROCEDURE The patient arrived to the procedure lab. The risks and benefits of the procedure as well as a full description of our services here and current unavailability of surgical backup were fully explained to the patient and/or their significant other prior to the catheterization. The Timeout was completed, verifying the correct patient and procedure. The patient's procedural site was prepped and draped in the usual fashion. Local anesthetic was given subcutaneously to right radial region with Lidocaine 2%. Using a modified Seldinger technique, arterial access was obtained via the right radial artery, a 6Fr sheath was inserted. Left Coronary Artery selective angiography was performed in multiple views using a 5 Fr. 4.0 Desha catheter. Right Coronary Artery selective angiography was then performed in multiple views using a 5 Fr. 4.0 Desha catheter. Left Ventriculography was performed in DEJESUS projection using a 5 Fr. Pigtail catheter. LV to AO pullback pressures were then recorded. CORONARY ANGIOGRAPHY DOMINANCE: Co- Dominant LEFT HEART ASSESSMENT Left Ventricular Ejection Fraction: by LV Gram 55 % Inferior Basal Hypokinesis - Mild. Inferior Mid Hypokinesis - Moderate Normal Left Ventricular systolic function LEFT MAIN: Mild calcification, No significant disease noted LEFT ANTERIOR DESCENDING ARTERY: PROX LAD: Mild calcification, Moderate luminal irregularities up to 50% DIAGONAL 1: Proximal - Moderate disease noted in the inferior branch CIRCUMFLEX ARTERY: PROX CIRC: 40 % Stenosis MID CIRC: 50 % Stenosis DISTAL CIRC: 95 at bifurcation % Stenosis RIGHT CORONARY ARTERY: PROX RCA: is occluded COMPLICATIONS PROCEDURE MEDICATIONS Versed 1 mg IV Fentanyl 50 mcg IV Versed 1 mg IV Oxygen: 2 L/min via nasal cannula Aspirin (325mg) 1 Tabs PO 04/05/2023 07:13:24 Brilinta 180 mg PO @ 04/05/2023 08:24:21 Heparin given IA 04/05/2023 08:04:40 Heparin 7000 unit(s) IV 04/05/2023 08:36:07 Verapamil 2.5mg, Ntg 200mcgs, 2000 units of Heparin given IA 04/05/2023 08:04:40 SUMMARY OF HEMODYNAMIC DATA Time AIR REST ECG 07:09:14 AO 132/76 (99) SA 08:05:35 LV 118/0, 4 08:13:22 LV 124/-1, 6 08:13:28 LV 125/-2, 11 08:14:12 LV 127/0, 10 08:14:19 LVp 128/0, 10 08:14:25 AOp 118/59 (79) 08:14:30 Signed By Isauro Ulloa MD On 04/05/2023 08:56:23 Isauro Ulloa MD
--- NOTE | 2023-04-05 09:58 | PCIREPORT_ITS ---
PCI Cardiac Cath Report PCI Report: 1. Successful PCI of, the distal circumflex artery 95% bifurcational lesion involving distal circumflex artery With predilatation using 2.5 x 15 mm balloon Followed by placement of drug-eluting stent 3 x 34 mm resolute [place] overlap at the midportion of the left circumflex with 3.5 x 15 mm and postdilated with the same balloon at the overlapping stent With reduction of stenosis to 0% and maintenance Of JERMAINE-3 flow pre and postprocedure. 2. Placement of TR band to close the right radial artery arteriotomy site. Preprocedure diagnosis; 67-year-old patient seen and evaluated by his primary director of planning Dr. Ulloa Patient has a paroxysmal atrial fibrillation Underwent cardioversion recently and has been in normal sinus Further evaluation in the office by stress test is abnormal, revealed EKG changes suggestive of ischemia and hypertensive response to exercise Based on clinical presentation and abnormal stress test he underwent cardiac catheterization today by his primary director of planning. I reviewed the finding of the cardiac catheterization which showed left main, normal angiographically bifurcating into LAD and the left circumflex The left anterior descending artery has a mid calcification with moderate luminal irregularity up to 50% The diagonal branch which is the D1 at the proximal moderate disease There Comfilax artery showed a proximal circumflex of 40% with the mid circumflex around 50% stenosis in the distal circumflex the culprit which is the bifurcation of a large artery around 95% The RCA is occluded proximally. There were no enough collaterals noted from the left side to the RCA The ejection fraction has been preserved with EF around 55 by LV gram. Consent; Risk and benefit of procedure explained in detail to the patient He elected to proceed and informed consent obtained. Interventional equipment: 1. 6 [place] EBU 3.500 cm guide catheter 2. 0.014 180 cm run-through extra floppy straight wire/guidewire 3. 0.014 190 cm BMW universal straight wire. 4. 2.5 x 15 mm balloon 5. 3 x 34 mm drug-eluting stent resolute [place] 6. 3.5 x 15 mm resolute [place]/drug-eluting stent Medication used in the [employer] 1. Patient was given 180 mg of Brilinta 2. Aspirin 3. Heparin with acceptable ACT level Procedure in detail; Under fluoroscopic guidance we will proceed with a 6 [place] Islander 3.5 EBU guide catheter from the right radial artery and cannulated the left main without difficulty Following this we proceed with the run-through guidewire Across the lesion in the larger branch which is OM 2 Multiple attempt to cross the lesion at the circumflex in the AV groove portion of difficult Then we will proceed with predilatation using 2.5 x 15 mm balloon at the distal segment of the bifurcation This is followed by placement of a drug-eluting stent 3 x 34 And overlapped with 3.5 x 15 at the midportion of a large segment of the circumflex artery/mid circumflex And achieve an excellent result With a JERMAINE III flow mainly at the larger OM1 and the circumflex in the AV groove Patient remained stable clinically as well as hemodynamically he does not have any symptoms of chest pain Conclusion recommendations; 1. Successful PCI of the culprit which is the distal circumflex With predilatation and placement of drug-eluting stent As specified 2. Patient will continue on Brilinta 90 mg in addition to that he will continue on Eliquis As he has a paroxysmal A-fib recently requiring cardioversion Patient will follow-up with his primary director of planning Dr. Ulloa I discussed anticoagulation and antiplatelet plan with his primary director of planning in 1 month if he remained stable to shift to Plavix to minimize the risk of bleeding Patient scheduled for phase 1 cardiac rehab at [facility]/cardiac team Patient will be admitted to the ICU for observation over the night and if she is stable then he can be discharged tomorrow. No complication in the [employer]. 3. Patient has occluded proximal RCA, there is no enough collaterals noted from the left to the RCA To follow-up with the primary director of planning with medical therapy and discuss further plan. Kwame Encinas MD,FACC,[facility]
[2023-04-05 10:05] LABS: ACT Activated Clotting Time 239 sec (74-137)
--- NOTE | 2023-04-05 10:15 | EKG12_ITS ---
Test Reason : POST PCI Blood Pressure : / mmHG Vent. Rate : 051 BPM Atrial Rate : 051 BPM P-R Int : 194 ms QRS Dur : 094 ms QT Int : 490 ms P-R-T Axes : 066 -13 -12 degrees QTc Int : 451 ms Sinus bradycardia Nonspecific ST abnormality Abnormal ECG When compared with ECG of 27-JUL-2022 11:34, Premature supraventricular complexes are no longer Present Confirmed by ESTRELLA TSAI, ISAURO ([id number]), desk editor KEV JIMENES ([id number]) on 04/11/2023 10:48:49 AM Referred By: Isauro Ulloa Confirmed By:ISAURO ULLOA MD
[2023-04-05] MEDS: 0.9% Normal Saline 1,000 ML 75 ML IV (10:31)
--- NOTE | 2023-04-05 12:56 | CRPHASE1 ---
Patient Communication Patient Information PHII Cardiac Rehab Discussed with Patient:: Yes Guide to Cardiac Rehab Given to Patient:: Yes Cardiac Rehab Facility Choice List Given to Patient:: Yes Communication to Cardiac Rehab Choice Program [facility] CR PHII:: Communication Given to CR Rat Poisoner:: Kwame Encinas Phase II Cardiac Rehab:: Yes Sessions:: 36 sessions - 3 days/wk, 12 weeks Cardiac Rehabilitation Info Program Information Cardiac Rehabilitation Program Information: Cardiac Rehab The cardiac rehab team at [facility] consists of highly skilled exercise physiologists, nurses, respiratory therapists and physicians working together with you. Our purpose is to help you have a full recovery and achieve the goals you set for yourself. Over the years many of our patients have returned to activities they assumed they would never do again! We can help restore your confidence and motivation to make lifestyle changes that can have a significant impact on your health and quality of life! We can help answer questions and concerns you may have about exercise, lifestyle, medications, diet, stress and anxiety which are common following a hospitalization. WE monitor ECG and vital signs during exercise and discuss your progress with you and report to your physician(s). Cardiac Rehab is proven to help reduce readmissions, improve functional capacity and lower recurrence of problems with your heart. Our Cardiac Rehab program is Certified by the [place] [employer]-Vascular and Pulmonary [employer] (AACVPR) and Accredited by the [place] [employer] through our [facility]. You can contact us at . We invite you to call us with your questions or to get started in our program. If you have other questions or concerns be sure to ask your physician/provider during your follow-up visit. WE look forward to seeing you!
--- NOTE | 2023-04-05 12:57 | CRPH1.INSTRU ---
General Education Discussed with Patient CAD and cardiac anatomy and function:: Patient communicates acknowledgment Explanation of diagnoses and procedures:: Patient communicates acknowledgment Sign/Symptoms of ID:: Patient communicates acknowledgment Antiplatelet therapy: Patient communicates acknowledgment Proper use of NTG-SL: Patient communicates acknowledgment Emergency procedures and activation of EMS: Patient communicates acknowledgment Compliance of all prescribed medications: Patient communicates acknowledgment Smoking Risk Factors Patient Nicotine/Smoking Risk Factors Are:: Non-smoker Recommendations Recommendations Include:: Previous smoker; encourage continued cessation Response Code Nicotine/Smoking Response Code:: Patient communicates acknowledgment Dyslipidemia Risk Factors Patient Dyslipidemia Risk Factors Are:: Total Cholesterol, Triglycerides, HDL and LDL Recommendations Recommendations Include:: Lipid profile not available and Therapeutic Lifestyle Change dietary guidelines Response Code Dyslipidemia Response Code:: Patient communicates acknowledgment Overweight/Obesity Risk Factors Patient Overweight/Obesity Risk Factors Are:: Obesity - > or = 30 Recommendations Recommendations Include:: Weight loss of 5-10%, Reduced calorie diet and Exercise 5-7 times/week Response Code Overweight/Obesity:: Patient communicates acknowledgment Hypertension Recommendations Recommendations Include:: Maintain BP <130/85, Decrease/maintain normal body weight and Moderation of ETOH Response Code Hypertension:: Patient communicates acknowledgment and Family communicates acknowledgment Sedentary Risk Factors Patient Sedentary Risk Factors Are:: Lack of regular exercise Recommendations Recommendations Include:: Aerobic exercise 5-7 times/week for 20-30 minutes continuously, Benefits of regular exercise and Monitored Outpatient Cardiac Rehab Response Code Sedentary Response Code:: Patient communicates acknowledgment and Family communicates acknowledgment
--- NOTE | 2023-04-05 16:00 | CASEMGMT ---
MIKE FLORES NOTE: MIKE FLORES to room. Introduced self and role. Pt resting in bed. Pt states he lives w/his and is independent. He uses no DME. 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 Pt on Eliquis @ home and will d/c w/addition of Brilinta. Pt chooses to get Rx's from [facility]. Discussed Brilinta 30-day savings card and made aware it would be applied by the pharmacy. Questions answered. Pt made aware to discuss w/furnace operator and tender possible other options if refills on Brlinta or Eliquis are not affordable. Pt voices understanding. Pt denies having any discharge planning needs. Faraz STORM RN, CM
[2023-04-05] MEDS: Losartan Potassium 50 MG Tablet PO (16:01)
[2023-04-05] MEDS: APIXABAN 5 MG TABLET PO (20:50)
[2023-04-05] MEDS: Metoprolol Tartrate 25 MG Tablet PO (20:50)
[2023-04-06 04:00] VITALS: BP 157/93; PULSE 64; RESP 15; TEMP 36.4; O2SAT 97
[2023-04-06 04:48] VITALS: BMI 29.9
[2023-04-06 04:49] LABS: Hematocrit 42.7 % (40-54); Hemoglobin 14.3 g/dL (13.0-16.5); Mean Corp Hgb Conc 33.5 g/dL (32-36); Mean Corpuscular Volume 95.5 fL (80-94); Mean Platelet Vol. 9.3 fl (6.2-12.0); Platelet Count 199 K/mm3 (150-450); RBC Distribution Width CV 13.3 % (11.6-14.6); RBC Distribution Width SD 47.4 fl (35.1-43.9); Red Blood Count 4.47 M/mm3 (4.6-6.2); White Blood Count 9.5 K/mm3 (4.4-11.0)
[2023-04-06 05:22] LABS: ALB/GLOB Ratio 0.8 RATIO (0.9-2.4); AST(SGOT) 18 U/L (15-37); Alanine Aminotransfer ALT/SGPT 22 U/L (16-61); Albumin, Serum 3.3 g/dL (3.2-5.0); Alkaline Phosphatase 58 U/L (45-117); Anion Gap 5 (5-15); BUN 11 mg/dL (7-18); BUN/Creat Ratio 11.9 RATIO (10-20); Calcium,Total 8.2 mg/dL (8.5-10.1); Chloride 110 mmol/L (98-107); Creatinine, Serum 0.92 mg/dL (0.70-1.30); EST Glomerular Filtration Rate 87 mL/min (>60); Est Glom Filt Rate - Afr Amer 105 mL/min (>60); Estimated Creatinine Clearance 79.35 ml/min; Globulin 4.2 g/dL (2.2-4.2); Glucose 104 mg/dL (74-106); Potassium 3.8 mmol/L (3.5-5.1); Protein, Total 7.5 g/dL (6.4-8.2); Sodium Level 140 mmol/L (136-145)
[2023-04-06 08:21] VITALS: BP 205/110; PULSE 68; RESP 18; TEMP 35.7; O2SAT 96
[2023-04-06 08:23] VITALS: PULSE 62
[2023-04-06] MEDS: Metoprolol Tartrate 25 MG Tablet PO (08:23)
[2023-04-06] MEDS: Famotidine 20 MG Tablet PO (08:24)
[2023-04-06] MEDS: Amiodarone 200 MG Tablet PO (08:24)
[2023-04-06] MEDS: Losartan Potassium 50 MG Tablet PO (08:24)
[2023-04-06] MEDS: Aspirin E.C. 81 MG Tablet PO (08:24)
[2023-04-06] MEDS: APIXABAN 5 MG TABLET PO (08:25)
--- NOTE | 2023-04-06 10:00 | EKG12_ITS ---
Test Reason : AM EKG Blood Pressure : / mmHG Vent. Rate : 059 BPM Atrial Rate : 059 BPM P-R Int : 182 ms QRS Dur : 092 ms QT Int : 514 ms P-R-T Axes : 064 -17 030 degrees QTc Int : [address] & T wave abnormality, consider lateral ischemia Prolonged QT Abnormal ECG Confirmed by ESTRELLA TSAI, ISAURO ([id number]), development editor BASHIR HAYWOOD ([id number]) on 04/07/2023 2:32:52 PM Referred By: Isauro Ulloa Confirmed By:ISAURO ULLOA MD
--- NOTE | 2023-04-06 10:02 | PCM.PN.BLA ---
Progress Note Patient's blood pressure is still elevated this morning. We will add Norvasc at 5 mg. If blood pressure is improved plan on discharging at lunchtime. Feel that his blood pressure is elevated likely due to anxiety.
--- NOTE | 2023-04-06 10:03 | DCINST_ITS ---
Discharge Instructions Activity Discharge Activity: Return to Normal Activity Lifting Restrictions: nothing greater than 10 lbs for 3 days Follow Up Care Test Results: Test results from this visit will be discussed in further detail at your follow- up appointment, if applicable. Discharge Plan Admission Admit Date/Time: 04/05/23 15:38 Primary Reason for Your Visit: PCI Attending Provider: Isauro Ulloa Primary Care Provider: Gladis Rodgers Instructions Additional Instructions / Restrictions: You were started on Brilinta, this is an antiplatelet that we will keep your stent open. If this is too costly for you at your office visit we can discuss switching this over to clopidogrel. However this antiplatelet cannot be discontinued. Your blood pressure has been slightly elevated, you were also started on Norvasc at 5 mg. We will continue to monitor your blood pressure readings on an outpatient basis You will be referred to cardiac rehab. You have a f/u with the [facility] on 04/21/2023 at 1 pm with Kristi MILLER. Discharge Orders/Prescriptions Prescriptions: New amlodipine 5 mg Tablet 5 mg PO DAILY Qty: 30 12RF aspirin 81 mg Tablet,Delayed Release (Dr/Ec) 81 mg PO DAILY@0800 Qty: 30 12RF Brilinta 90 mg Tablet 90 mg PO BID Qty: 60 12RF Continued Eliquis 5 mg tablet 5 mg PO BID Qty: 60 11RF famotidine [Acid Relay Associate (famotidine)] 20 mg tablet 20 mg PO DAILY metoprolol tartrate 25 mg tablet 25 mg PO BID Qty: 180 3RF amiodarone 200 mg tablet 200 mg PO DAILY Qty: 90 3RF losartan 50 mg tablet 50 mg PO BID Qty: 180 3RF Referrals / Follow Up: Gladis Rodgers MD [Primary Care Provider] - Kristi De La Garza PA [Med Staff - [facility]] - Disposition Disposition (needs filled in before D/C Order can be placed): Home, Self Care
[2023-04-06] MEDS: TICAGRELOR 90 MG TABLET PO (10:27)
[2023-04-06] MEDS: amLODIPine 5 MG Tablet PO (10:27)
[2023-04-06 10:29] VITALS: BP 169/81; PULSE 55
[2023-04-06 11:30] VITALS: BP 188/90; PULSE 53; RESP 16; O2SAT 96
== END 2023-04-06 12:50 | disposition home or self-care (01) ==
LOC: CLSP 16:07 → ICU 16:07
PROVIDERS: Internal Medicine Interventional Cardiology; Nurse Practitioner Gerontology; Admitting Provider Internal Medicine Cardiovascular Disease; PCP Internal Medicine; Referring Provider Internal Medicine Cardiovascular Disease; Visit Provider Internal Medicine Cardiovascular Disease
DX: I25.10 Atherosclerotic heart disease of native coronary artery without angina pectoris (principal); I42.9 Cardiomyopathy, unspecified; I50.22 Chronic systolic (congestive) heart failure; I48.0 Paroxysmal atrial fibrillation; Z79.01 Long term (current) use of anticoagulants; Z79.02 Long term (current) use of antithrombotics/antiplatelets; R94.39 Abnormal result of other cardiovascular function study; E78.5 Hyperlipidemia, unspecified; K21.9 Gastro-esophageal reflux disease without esophagitis; R53.1 Weakness; R06.09 Other forms of dyspnea; Z79.82 Long term (current) use of aspirin; Z79.899 Other long term (current) drug therapy
CPT/HCPCS: 36415; 71046; 80048; 80053; 85025; 85027; 85347; 92928; 93005; 93458; 96360; 96361; 99152; 99153; 99221; J7030; J7040; Q9967; C1725; C1769; C1874; C1887; C1894; C9600; G0378

== ENCOUNTER 2023-06-20 14:55 | Outpatient (RCR) | payer MEDICARE, SELFPAY ==
[2023-06-20 16:32] LABS: International Normalized Ratio 1.3; Prothrombin Time (Protime)PT. 16.6 SECONDS (11.7-14.9)
== END 2023-06-20 18:00 | disposition home or self-care (01) ==
LOC: LAB 14:55
PROVIDERS: PCP Internal Medicine; Referring Provider Physician Assistant Medical; Visit Provider Physician Assistant Medical
DX: I48.91 Unspecified atrial fibrillation (principal); Z79.01 Long term (current) use of anticoagulants
CPT/HCPCS: 36415; 85610

== ENCOUNTER 2023-07-25 09:55 | Outpatient (RCR) | payer MEDICARE, SELFPAY ==
[2023-06-27 10:08] LABS: INR Fingerstick 2.7; Prothrombin Time Fingerstick 29.1 SEC (11.7-14.9)
[2023-07-04 10:37] LABS: INR Fingerstick 3.9; Prothrombin Time Fingerstick 41.2 SEC (11.7-14.9)
[2023-07-11 10:12] LABS: INR Fingerstick 3.9; Prothrombin Time Fingerstick 41.1 SEC (11.7-14.9)
[2023-07-11 11:09] LABS: International Normalized Ratio 3.6; Prothrombin Time (Protime)PT. 36.5 SECONDS (11.7-14.9)
[2023-07-18 10:33] LABS: INR Fingerstick 3.6; Prothrombin Time Fingerstick 37.9 SEC (11.7-14.9)
[2023-07-25 10:05] LABS: INR Fingerstick 3.2; Prothrombin Time Fingerstick 34.1 SEC (11.7-14.9)
== END 2023-07-25 18:00 | disposition home or self-care (01) ==
LOC: LAB 09:55
PROVIDERS: PCP Internal Medicine; Referring Provider Physician Assistant Medical; Visit Provider Physician Assistant Medical
DX: I48.91 Unspecified atrial fibrillation (principal); Z79.01 Long term (current) use of anticoagulants
CPT/HCPCS: 36415; 36416; 85610

== ENCOUNTER 2023-08-15 09:21 | Outpatient (RCR) | payer MEDICARE, SELFPAY ==
[2023-08-01 14:05] LABS: INR Fingerstick 2.3; Prothrombin Time Fingerstick 24.7 SEC (11.7-14.9)
[2023-08-15 09:27] LABS: INR Fingerstick 2.1; Prothrombin Time Fingerstick 23.2 SEC (11.7-14.9)
== END 2023-08-25 18:00 | disposition home or self-care (01) ==
LOC: LAB 09:21
PROVIDERS: PCP Internal Medicine; Referring Provider Physician Assistant Medical; Visit Provider Physician Assistant Medical
DX: I48.91 Unspecified atrial fibrillation (principal); Z79.01 Long term (current) use of anticoagulants
CPT/HCPCS: 36416; 85610

== ENCOUNTER 2023-09-15 12:32 | Outpatient (RCR) | payer MEDICARE, SELFPAY ==
[2023-09-08 12:10] LABS: INR Fingerstick 1.7; Prothrombin Time Fingerstick 18.5 SEC (11.7-14.9)
[2023-09-15 12:45] LABS: Prothrombin Time Fingerstick 21.6 SEC (11.7-14.9)
== END 2023-09-25 18:00 | disposition home or self-care (01) ==
LOC: LAB 12:32
PROVIDERS: PCP Internal Medicine; Referring Provider Physician Assistant Medical; Visit Provider Physician Assistant Medical
DX: I48.91 Unspecified atrial fibrillation (principal); Z79.01 Long term (current) use of anticoagulants
CPT/HCPCS: 36416; 85610

== ENCOUNTER → 2023-09-21 | Outpatient (CLI) | payer MEDICARE, SELFPAY ==
[2023-09-21 08:55] LABS: Absolute Lymphocyte Count 1.46 X10^3/uL (0.83-4.51); Absolute Neutrophil Count 5.6 X10^3/uL (2.0-7.7); Basophil# 0.07 X10^3/uL; Basophil% 0.9 % (0-1); Eosinophil# 0.23 X10^3/uL; Eosinophils% 2.9 % (0-5); Hematocrit 46.1 % (40-54); Lymphocyte # 1.46 X10^3/ul (0.83-4.51); Lymphocyte % 18.4 % (19-41); Mean Corp Hgb Conc 32.5 g/dL (32-36); Mean Corpuscular Hgb 31.1 pg (27.0-32.0); Mean Corpuscular Volume 95.6 fL (80-94); Mean Platelet Vol. 9.2 fl (6.2-12.0); Monocyte# 0.54 X10^3/uL; Monocyte% 6.8 % (0-10); NRBC Flagged by Analyzer 0 % (0-5); Neutrophil # 5.58 X10^3/uL (2.7-7.7); Neutrophil % 70.1 % (47-70); Platelet Count 237 K/mm3 (150-450); RBC Distribution Width CV 13.6 % (11.6-14.6); RBC Distribution Width SD 48.5 fl (35.1-43.9); Red Blood Count 4.82 M/mm3 (4.6-6.2)
[2023-09-21 09:19] LABS: Vitamin D,25 Hydroxy 33.1 ng/mL
[2023-09-21 09:51] LABS: ALB/GLOB Ratio 0.9 RATIO (0.9-2.4); AST(SGOT) 20 U/L (15-37); Alanine Aminotransfer ALT/SGPT 30 U/L (16-61); Albumin, Serum 3.7 g/dL (3.2-5.0); Alkaline Phosphatase 54 U/L (45-117); Anion Gap 7 (5-15); BUN 14 mg/dL (7-18); BUN/Creat Ratio 13.2 RATIO (10-20); Calcium,Total 9.1 mg/dL (8.5-10.1); Chloride 107 mmol/L (98-107); Cholesterol 222 mg/dL (200); Creatinine, Serum 1.06 mg/dL (0.70-1.30); EST Glomerular Filtration Rate 74 mL/min (>60); Est Glom Filt Rate - Afr Amer 89 mL/min (>60); Globulin 3.9 g/dL (2.2-4.2); Glucose 108 mg/dL (74-106); High Density Lipoprotein 66 mg/dL; PSA,Total - Annual Screen 1.86 ng/mL (0.00-4.00); Potassium 3.6 mmol/L (3.5-5.1); Protein, Total 7.6 g/dL (6.4-8.2); Sodium Level 138 mmol/L (136-145); Thyroid Stim Hormone (TSH) 1.01 uIU/mL (0.358-3.74); Triglycerides 140 mg/dL; Very Low Density Lipoprotein 28 mg/dL (5-40)
== END | disposition home or self-care (01) ==
LOC: LAB 08:24
PROVIDERS: PCP Internal Medicine; Referring Provider Internal Medicine; Visit Provider Internal Medicine
DX: I11.0 Hypertensive heart disease with heart failure (principal); I50.20 Unspecified systolic (congestive) heart failure; L72.9 Follicular cyst of the skin and subcutaneous tissue, unspecified; I25.10 Atherosclerotic heart disease of native coronary artery without angina pectoris; E78.5 Hyperlipidemia, unspecified; E55.9 Vitamin D deficiency, unspecified; Z12.5 Encounter for screening for malignant neoplasm of prostate
CPT/HCPCS: 36415; 80053; 80061; 82306; 84153; 84443; 85025; G0103

== ENCOUNTER 2023-11-14 09:56 | Outpatient (RCR) | payer MEDICARE, SELFPAY ==
[2023-11-14 10:04] LABS: INR Fingerstick 2.4; Prothrombin Time Fingerstick 24.6 SEC (11.7-14.9)
== END 2023-11-24 18:00 | disposition home or self-care (01) ==
LOC: LAB 09:56
PROVIDERS: PCP Internal Medicine; Referring Provider Physician Assistant Medical; Visit Provider Physician Assistant Medical
DX: I48.91 Unspecified atrial fibrillation (principal); Z79.01 Long term (current) use of anticoagulants
CPT/HCPCS: 36416; 85610

== ENCOUNTER 2024-01-05 08:30 | Outpatient (RCR) | payer MEDICARE, SELFPAY ==
[2024-01-05 08:37] LABS: INR Fingerstick 2.1
[2024-01-05 10:55] LABS: AST(SGOT) 20 U/L (15-37); Alanine Aminotransfer ALT/SGPT 29 U/L (16-61); Albumin, Serum 3.7 g/dL (3.2-5.0); Alkaline Phosphatase 56 U/L (45-117); Bilirubin, Direct 0.15 mg/dL (0.00-0.30); Cholesterol 214 mg/dL (200); Globulin 3.7 g/dL (2.2-4.2); High Density Lipoprotein 57 mg/dL; Protein, Total 7.4 g/dL (6.4-8.2); Triglycerides 111 mg/dL; Very Low Density Lipoprotein 22 mg/dL (5-40)
== END 2024-01-24 23:08 | disposition home or self-care (01) ==
LOC: LAB 08:30
PROVIDERS: Internal Medicine Cardiovascular Disease; PCP Internal Medicine; Referring Provider Physician Assistant Medical; Visit Provider Physician Assistant Medical
DX: I48.91 Unspecified atrial fibrillation (principal); Z79.01 Long term (current) use of anticoagulants; I50.20 Unspecified systolic (congestive) heart failure; Z95.5 Presence of coronary angioplasty implant and graft
CPT/HCPCS: 36415; 36416; 80061; 80076; 85610

== ENCOUNTER 2024-02-03 10:40 | Outpatient (RCR) | payer MEDICARE, SELFPAY ==
[2024-02-03 10:51] LABS: INR Fingerstick 2.4
== END 2024-02-03 18:00 | disposition home or self-care (01) ==
LOC: LAB 10:40
PROVIDERS: PCP Internal Medicine; Referring Provider Physician Assistant Medical; Visit Provider Physician Assistant Medical
DX: I48.91 Unspecified atrial fibrillation (principal); Z79.01 Long term (current) use of anticoagulants
CPT/HCPCS: 36416; 85610

== ENCOUNTER 2024-03-19 09:23 | Outpatient (RCR) | payer MEDICARE, SELFPAY ==
[2024-03-05 14:06] LABS: INR Fingerstick 3.1; Prothrombin Time Fingerstick 30.8 SEC (11.7-14.9)
[2024-03-19 09:42] LABS: INR Fingerstick 3.1; Prothrombin Time Fingerstick 30.9 SEC (11.7-14.9)
== END 2024-03-19 18:00 | disposition home or self-care (01) ==
LOC: LAB 09:23
PROVIDERS: PCP Internal Medicine; Referring Provider Physician Assistant Medical; Visit Provider Physician Assistant Medical
DX: I48.91 Unspecified atrial fibrillation (principal); Z79.01 Long term (current) use of anticoagulants
CPT/HCPCS: 36416; 85610

== ENCOUNTER 2024-04-04 07:44 | Outpatient (RCR) | payer MEDICARE, SELFPAY ==
[2024-04-04 08:44] LABS: International Normalized Ratio 2.7; Prothrombin Time (Protime)PT. 28.8 SECONDS (11.7-14.9)
[2024-04-04 08:46] LABS: AST(SGOT) 25 U/L (15-37); Alanine Aminotransfer ALT/SGPT 31 U/L (16-61); Albumin, Serum 3.9 g/dL (3.2-5.0); Alkaline Phosphatase 67 U/L (45-117); Bilirubin, Direct 0.16 mg/dL (0.00-0.30); Cholesterol 158 mg/dL (200); Globulin 3.9 g/dL (2.2-4.2); High Density Lipoprotein 58 mg/dL; Protein, Total 7.8 g/dL (6.4-8.2); Triglycerides 116 mg/dL; Very Low Density Lipoprotein 23 mg/dL (5-40)
== END 2024-04-25 18:00 | disposition home or self-care (01) ==
LOC: LAB 07:44
PROVIDERS: Nurse Practitioner Gerontology; PCP Internal Medicine; Referring Provider Physician Assistant Medical; Visit Provider Physician Assistant Medical
DX: I48.91 Unspecified atrial fibrillation (principal); Z79.01 Long term (current) use of anticoagulants; E78.00 Pure hypercholesterolemia, unspecified; Z95.5 Presence of coronary angioplasty implant and graft
CPT/HCPCS: 36415; 36416; 80061; 80076; 85610

== ENCOUNTER 2024-05-18 09:33 | Outpatient (RCR) | payer MEDICARE, SELFPAY ==
[2024-05-11 15:18] LABS: INR Fingerstick 3.7; Prothrombin Time Fingerstick 35.9 SEC (11.7-14.9)
[2024-05-29 07:24] LABS: INR Fingerstick 2.5; Prothrombin Time Fingerstick 25.7 SEC (11.7-14.9)
== END 2024-05-18 18:00 | disposition home or self-care (01) ==
LOC: LAB 09:33
PROVIDERS: PCP Internal Medicine; Referring Provider Physician Assistant Medical; Visit Provider Physician Assistant Medical
DX: I48.91 Unspecified atrial fibrillation (principal); Z79.01 Long term (current) use of anticoagulants
CPT/HCPCS: 36416; 85610

== ENCOUNTER 2024-06-19 11:10 | Outpatient (RCR) | payer MEDICARE, SELFPAY ==
[2024-06-01 09:33] LABS: INR Fingerstick 2.2; Prothrombin Time Fingerstick 23.1 SEC (11.7-14.9)
[2024-06-19 12:22] LABS: INR Fingerstick 1.6; Prothrombin Time Fingerstick 17.3 SEC (11.7-14.9)
== END 2024-06-19 18:00 | disposition home or self-care (01) ==
LOC: LAB 11:10
PROVIDERS: PCP Internal Medicine; Referring Provider Physician Assistant Medical; Visit Provider Physician Assistant Medical
DX: Z79.01 Long term (current) use of anticoagulants
CPT/HCPCS: 36416; 85610

== ENCOUNTER 2024-06-27 10:11 | Outpatient (RCR) | payer MEDICARE, SELFPAY ==
[2024-06-27 10:22] LABS: INR Fingerstick 2.2; Prothrombin Time Fingerstick 23.2 SEC (11.7-14.9)
[2024-07-25 12:15] LABS: INR Fingerstick 2.9; Prothrombin Time Fingerstick 29.6 SEC (11.7-14.9)
== END 2024-06-27 18:00 | disposition home or self-care (01) ==
LOC: LAB 10:11
PROVIDERS: PCP Internal Medicine; Referring Provider Physician Assistant Medical; Visit Provider Physician Assistant Medical
DX: I48.91 Unspecified atrial fibrillation (principal); Z79.01 Long term (current) use of anticoagulants
CPT/HCPCS: 36416; 85610

== ENCOUNTER → 2024-07-06 | Outpatient (CLI) | payer MEDICARE, SELFPAY ==
[2024-07-06 12:04] LABS: AST(SGOT) 20 U/L (15-37); Alanine Aminotransfer ALT/SGPT 26 U/L (16-61); Albumin, Serum 3.7 g/dL (3.2-5.0); Alkaline Phosphatase 84 U/L (45-117); Bilirubin, Direct 0.17 mg/dL (0.00-0.30); Cholesterol 166 mg/dL (200); Globulin 3.3 g/dL (2.2-4.2); High Density Lipoprotein 67 mg/dL; Triglycerides 77 mg/dL; Very Low Density Lipoprotein 15 mg/dL (5-40)
== END | disposition home or self-care (01) ==
LOC: LAB 10:35
PROVIDERS: PCP Internal Medicine; Referring Provider Nurse Practitioner Gerontology; Visit Provider Nurse Practitioner Gerontology
DX: E78.5 Hyperlipidemia, unspecified (principal)
CPT/HCPCS: 36415; 80061; 80076

== ENCOUNTER 2024-08-22 09:08 | Outpatient (RCR) | payer MEDICARE, SELFPAY ==
[2024-08-07 09:34] LABS: INR Fingerstick 1.7; Prothrombin Time Fingerstick 19.3 SEC (11.7-14.9)
[2024-08-22 09:17] LABS: INR Fingerstick 2.4; Prothrombin Time Fingerstick 25.6 SEC (11.7-14.9)
== END 2024-08-25 18:00 | disposition home or self-care (01) ==
LOC: LAB 09:08
PROVIDERS: PCP Internal Medicine; Referring Provider Physician Assistant Medical; Visit Provider Physician Assistant Medical
DX: I48.91 Unspecified atrial fibrillation (principal); Z79.01 Long term (current) use of anticoagulants

== ENCOUNTER 2024-09-18 10:15 | Outpatient (RCR) | payer MEDICARE, SELFPAY ==
[2024-09-12 09:37] LABS: INR Fingerstick 1.9; Prothrombin Time Fingerstick 21.1 SEC (11.7-14.9)
[2024-09-18 10:22] LABS: INR Fingerstick 2.2; Prothrombin Time Fingerstick 23.7 SEC (11.7-14.9)
== END 2024-09-18 18:00 | disposition home or self-care (01) ==
LOC: LAB 10:15
PROVIDERS: PCP Internal Medicine; Referring Provider Physician Assistant Medical; Visit Provider Physician Assistant Medical
DX: Z79.01 Long term (current) use of anticoagulants
CPT/HCPCS: 36416; 85610

== ENCOUNTER 2024-10-18 09:08 | Outpatient (RCR) | payer MEDICARE, SELFPAY ==
[2024-10-18 09:23] LABS: INR Fingerstick 2.1; Prothrombin Time Fingerstick 23.2 SEC (11.7-14.9)
== END 2024-10-18 18:00 | disposition home or self-care (01) ==
LOC: LAB 09:08
PROVIDERS: PCP Internal Medicine; Referring Provider Physician Assistant Medical; Visit Provider Physician Assistant Medical
DX: Z79.01 Long term (current) use of anticoagulants
CPT/HCPCS: 36416; 85610

== ENCOUNTER 2024-11-16 09:08 | Outpatient (RCR) | payer MEDICARE, SELFPAY ==
[2024-11-16 09:19] LABS: Prothrombin Time Fingerstick 22.3 SEC (11.7-14.9)
== END 2024-11-23 18:00 | disposition home or self-care (01) ==
LOC: LAB 09:08
PROVIDERS: PCP Internal Medicine; Referring Provider Physician Assistant Medical; Visit Provider Physician Assistant Medical
DX: I48.91 Unspecified atrial fibrillation (principal); Z79.01 Long term (current) use of anticoagulants
CPT/HCPCS: 36416; 85610

== ENCOUNTER 2024-12-17 09:14 | Outpatient (RCR) | payer MEDICARE, SELFPAY ==
[2024-12-18 08:36] LABS: INR Fingerstick 1.7; Prothrombin Time Fingerstick 19.5 SEC (11.7-14.9)
== END 2024-12-17 18:00 | disposition home or self-care (01) ==
LOC: LAB 09:14
PROVIDERS: PCP Internal Medicine; Referring Provider Physician Assistant Medical; Visit Provider Physician Assistant Medical
DX: Z79.01 Long term (current) use of anticoagulants (principal)
CPT/HCPCS: 36416; 85610

== ENCOUNTER 2025-01-17 09:26 | Outpatient (RCR) | payer MEDICARE, SELFPAY ==
[2025-01-01 09:25] LABS: AST(SGOT) 27 U/L (<=37); Alanine Aminotransfer ALT/SGPT 27 U/L (<=46); Alkaline Phosphatase 74 U/L (40-129); Bilirubin, Direct 0.16 mg/dL (0.00-0.30); Cholesterol 190 mg/dL (<=200); Globulin 3.3 g/dL (2.2-4.2); High Density Lipoprotein 80 mg/dL; Low Density Lipoprotein Calc. 99 mg/dL; Protein, Total 7.3 g/dL (5.9-8.4); Total Bilirubin 0.37 mg/dL (0.00-1.30); Triglycerides 53 mg/dL; Very Low Density Lipoprotein 11 mg/dL (5-40); cholesterol:hdl ratio screen 2.37
[2025-01-17 09:33] LABS: INR Fingerstick 1.9; Prothrombin Time Fingerstick 21.1 SEC (11.7-14.9)
== END 2025-01-23 18:00 | disposition home or self-care (01) ==
LOC: LAB 09:26
PROVIDERS: Nurse Practitioner Family; PCP Internal Medicine; Referring Provider Physician Assistant Medical; Visit Provider Physician Assistant Medical
DX: Z79.01 Long term (current) use of anticoagulants; E78.00 Pure hypercholesterolemia, unspecified
CPT/HCPCS: 36415; 36416; 80061; 80076; 85610

== ENCOUNTER 2025-01-31 09:13 | Outpatient (RCR) | payer MEDICARE, SELFPAY ==
[2025-01-31 09:32] LABS: Prothrombin Time Fingerstick 21.9 SEC (11.7-14.9)
== END 2025-01-31 18:00 | disposition home or self-care (01) ==
LOC: LAB 09:13
PROVIDERS: PCP Internal Medicine; Referring Provider Physician Assistant Medical; Visit Provider Physician Assistant Medical
DX: Z79.01 Long term (current) use of anticoagulants
CPT/HCPCS: 36416; 85610

== ENCOUNTER 2025-03-18 08:25 | Outpatient (RCR) | payer MEDICARE, SELFPAY ==
[2025-03-01 08:49] LABS: INR Fingerstick 1.9; Prothrombin Time Fingerstick 20.8 SEC (11.7-14.9)
[2025-03-18 08:40] LABS: INR Fingerstick 2.2; Prothrombin Time Fingerstick 23.7 SEC (11.7-14.9)
== END 2025-03-18 18:00 | disposition home or self-care (01) ==
LOC: LAB 08:25
PROVIDERS: PCP Internal Medicine; Referring Provider Physician Assistant Medical; Visit Provider Physician Assistant Medical
DX: Z79.01 Long term (current) use of anticoagulants (principal)
CPT/HCPCS: 36416; 85610

== ENCOUNTER 2025-04-06 09:57 | Emergency (ER) | payer MEDICARE, SELFPAY ==
[2025-04-06 09:58] VITALS: BP 154/109; PULSE 133; RESP 18; TEMP 36.8; O2SAT 99; BMI 25.9
--- NOTE | 2025-04-06 10:11 | EKG12_ITS ---
Test Reason : PALPITATIONS Blood Pressure : */* mmHG Vent. Rate : 106 BPM Atrial Rate : * BPM P-R Int : * ms QRS Dur : 82 ms QT Int : 350 ms P-R-T Axes : * -25 38 degrees QTcB Int : 464 ms Atrial fibrillation with rapid ventricular response Abnormal ECG Confirmed by ESTRELLA TSAI, CHARU ([id number]), publication editor KEV JIMENES ([id number]) on 04/08/2025 11:32:17 AM Referred By: Confirmed By: CHARU DE LA ROSA MD
--- NOTE | 2025-04-06 10:20 | RAD_ITS ---
PROCEDURE: CHEST PA AND LATERAL 04/06/2025 REASON FOR EXAM: SOB TECHNIQUE: CHEST PA AND LATERAL COMPARISON: Chest radiograph 03/28/2023. FINDINGS: Hardware: None. Heart: The heart size is normal. Mediastinum: The mediastinal contour is stable. Lungs: No focal consolidation, pleural effusion or pneumothorax. Bones: Degenerative changes are identified within the thoracic spine. RAD/Chest PA and Lateral IMPRESSION: NO ACUTE FINDINGS. Reading Location: [id number]
[2025-04-06 10:25] LABS: Hematocrit 44.2 % (40-54); Hemoglobin 15.7 g/dL (13.0-16.5); Immature Granulocytes Count 0.050 X10^3/uL (0.0-0.0); Mean Corp Hgb Conc 35.5 g/dL (32-36); Mean Corpuscular Volume 89.5 fL (80-94); Mean Platelet Vol. 9.0 fl (6.2-12.0); NRBC Flagged by Analyzer 0 % (0-5); Platelet Count 208 K/mm3 (150-450); RBC Distribution Width CV 12.6 % (11.6-14.6); RBC Distribution Width SD 41.3 fl (35.1-43.9); Red Blood Count 4.94 M/mm3 (4.6-6.2); White Blood Count 10.0 K/mm3 (4.4-11.0)
[2025-04-06 10:29] LABS: Prothrombin Time (Protime)PT. 22.1 SECONDS (11.7-14.9)
--- OUTSIDE RECORDS SUMMARY | 2025-04-06 10:36 | XMS RPT_ITS | CCD ---
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 Prosper Ngo Primary Care Provider Dr. Dennis Casarez Admit Provider Dr. Dennis Casarez Attending Provider Dr. Dennis Casarez Other Provider Dr. Isauro Ulloa Attending Provider [phone] TNOY Zavala Attending Provider Unavail able Dr. Prosper Ngo Referring Provider [phone] Dr. Isauro Ulloa Other Provider Dr. Edouard Otto Attending Provider [phone] Dr. Isauro Ulloa Referring Provider [phone] Prosper Ngo Attending Provider [phone] Vane LOONEY, PSYCHIATRIC LPN-C Dixie Attending Provider Dr. Prosper Ngo Primary Care Provider Dr. Prosper Ngo Referring Provider [phone] Dr. Isauro Ulloa Attending Provider [phone] Dr. Isauro Ulloa Other Provider Vane LOONEY, PSYCHIATRIC LPN-C Dixie Attending Provider Dr. Isauro Ulloa Referring Provider [phone] Edouard Otto Attending Provider [phone] Dr. Prosper Ngo Primary Care Provider Dr. Isauro Ulloa Attending Provider [phone] Dr. Prosper Ngo Referring Provider [phone] Dr. Prosper Ngo Primary Care Provider Dr. Isauro Ulloa Attending Provider [phone] Prosper Ngo Referring Provider [phone] Vane PSYCHIATRIC LPN, PSYCHIATRIC LPN-C Dixie Attending Provider Vane PSYCHIATRIC LPN, PSYCHIATRIC LPN-C Dixie Referring Provider Vane PSYCHIATRIC LPN, PSYCHIATRIC LPN-C Dixie Other Provider [phone] Dr. Nicholas Liu Attending Provider Dr. Prosper Ngo Primary Care Provider Dr. Prosper Ngo Referring Provider Vane PSYCHIATRIC LPN, PSYCHIATRIC LPN-C Dixie Attending Provider Dr. Isauro Ulloa Attending Provider [phone] Isauro Ulloa Referring Provider [phone] Isauro Ulloa Other Provider Dr. Kwame Enicnas Attending Provider Dr. Isauro Ulloa Admit Provider Frederic MILLER, ANGELA Lopez Attending Provider Dr. Prosper Ngo Primary Care Provider Vane PSYCHIATRIC LPN, PSYCHIATRIC LPN-C Dixie Referring Provider Vane PSYCHIATRIC LPN, PSYCHIATRIC LPN-C Dixie Other Provider [phone] Vane PSYCHIATRIC LPN, PSYCHIATRIC LPN-C Dixie Attending Provider Dr. Prosper Ngo Referring Provider Dr. Prosper Ngo Primary Care Provider Dr. Prosper Ngo Referring Provider Vane PSYCHIATRIC LPN, PSYCHIATRIC LPN-C Dixie Attending Provider Dr. Prosper Ngo Attending Provider Dr. Prosper Ngo Primary Care Provider Dr. Prosper Ngo Referring Provider Dr. Isauro Ulloa Attending Provider [phone] Jeni TSAI, Dr. Griffith Primary Care Provider [phone] Kristi Al Attending Provider [phone] Kristi Al Referring Provider [phone] Jeni TSAI, Dr. Griffith Attending Provider Jeni TSAI, Dr. Griffith Primary Care Provider Kristi Al Attending Provider [phone] Kristi Al Referring Provider [phone] Jeni TSAI, Dr. Griffith Referring Provider Dixie Hassan Other Provider [phone] Jeni TSAI, Dr. Griffith Primary Care Provider Kristi Al Attending Provider [phone] Kristi Al Referring Provider [phone] Prosper Ngo MD Primary Care Provider [phone] Kristi Al Attending Unavail able Kristi Al Referring Unavail able Jeni, Prosper Primary Care Unavailable Jeni, Prosper Attending Unavailable Jeni, Prosper Primary Care Unavailable Jeni, Prosper Referring Unavailable Dixie Haynes NP Attending Unavailable Jeni, Prosper Primary Care Unavailable Kristi Al Attending Unavail able Kristi Al Referring Unavail able Jeni, Prosper Primary Care Unavailable Kristi Al Referring Unavail able Jeni, Prosper Primary Care Unavailable Kristi Al Attending Unavail able Kristi Al Referring Unavail able Jeni, Prosper Primary Care Unavailable Kristi Al Attending Unavail able Jeni, Prosper Primary Care Unavailable Dixie Haynes NP Consulting Unavailable Kristi Al Referring Unavail able Kristi Al Attending Unavail able Kristi Al Referring Unavail able Jeni, Prosper Primary Care Unavailable Kristi Al Attending Unavail able Dixie Haynes NP Referring Unavailable Vane LOONEY, Dixie Attending Unavailable Jeni, Prosper Primary Care Unavailable Kristi Al Referring Unavail able Jeni, Prosper Primary Care Unavailable Kristi Al Attending Unavail able Jeni, Prosper Primary Care Unavailable Kristi Al Attending Unavail able Kristi Al Referring Unavail able Kristi Al Referring Unavail able Vane PSYCHIATRIC LPN, Dixie Consulting Unavailable Jeni, Prosper Primary Care Unavailable Kristi Al Attending Unavail able Jeni, Prosper Primary Care Unavailable Kristi Al Referring Unavail able Vane PSYCHIATRIC LPN, Dixie Consulting Unavailable Kristi Al Attending Unavail able Kristi Al Referring Unavail able Jeni, Prosper Primary Care Unavailable Kristi Al Attending Unavail able Jeni, Prosper Primary Care Unavailable Jeni, Prosper Referring Unavailable Kristi Al Attending Unavail able Jeni, Prosper Referring Unavailable Chandler Llanos Attending Unavailable Jeni, Prosper Primary Care Unavailable Jeni, Prosper Referring Unavailable Chandler Llanos Attending Unavailable Jeni, Prosper Primary Care Unavailable Jeni, Prosper Primary Care Unavailable Vane LOONEY, Dixie Consulting Unavailable Kristi Al Referring Unavail able Kristi Al Attending Unavail able Jeni, Prosper Primary Care Unavailable Kristi Al Attending Unavail able Kristi Al Referring Unavail able PROSPER NGO Referring Unavailable JENI, PROSPER M Primary Care Unavailable CUAUHTEMOC NEVAREZ Attending Unavailable Allergies Allergy Classification Reported Allergen(s) Allergy Type Date of Onset Reaction(s) Facility (19 sources) Codeine Drug Allergy 2 Unknown, Swelling [facility] Comment on above: in 1987 had neck swe lling with taking too much Codeine following surgery (11 sources) Lisinopril Drug Allergy 3 Cough [facility] (1 source) Codeine Drug Allergy 5 [facility] (1 source) Lisinopril Drug Allergy 5 [facility] Medications Current Medications Medication Drug Class(es) Dates Sig (Normalized) Sig (Original) acetaminophen 500 mg oral tablet (3 sources) Start: 10-29-2024 take 1 tablet by mouth every six hours as needed Acetaminophen (Tylenol Extra Strength) 500 mg tablet Active 500 mg PO EVERY 6 HOURS as needed October 29, 2024 1:00am amLODIPine 5 mg oral tablet (20 sources) Dihydropyridine Calcium Channel Rosana Start: 04-06-2023 End: 03-22-2025 take 1 tablet by mouth once daily amLODIPine (NORVASC) 5 MG tablet Take 1 (one) tablet (5 mg total) by mouth daily . 01/01/2025 Active atorvastatin 40 mg oral tablet (17 sources) HMG-CoA Reductase Inhibitor Start: 01-04-2025 take 1 tablet by mouth once daily atorvastatin (LIPITOR) 40 MG tablet Take 1 (one) tablet (40 mg total) by mouth nightly . 01/04/2025 Active Start: 01-05-2024 End: 12-27-2024 take 1 tablet by mouth at bedtime Atorvastatin 40 mg tablet Active 40 mg PO AT BEDTIME 90 December 27, 2024 9:53am Start: 04-21-2023 End: 01-05-2024 take 1 tablet by mouth at bedtime Atorvastatin 20 mg tablet Discontinued 20 mg PO AT BEDTIME 90 April 21, 2023 12:00am January 05, 2024 9:27am clopidogrel 75 mg oral tablet (15 sources) P2Y12 Platelet Inhibitor Start: 04-21-2023 End: 03-22-2025 take 1 tablet by mouth once daily clopidogreL (PLAVIX) 75 mg tablet Take 1 (one) tablet (75 mg total) by mouth daily . 01/01/2025 Active famotidine 20 mg oral tablet (20 sources) Histamine-2 Receptor Antagonist Start: 01-01-2025 take 1 tablet by mouth once daily famotidine (PEPCID) 20 MG tablet Take 1 (one) tablet (20 mg total) by mouth daily . 01/01/2025 Active Start: 05-26-2022 End: 04-23-2024 take 1 tablet by mouth once daily Famotidine (Acid Farm Service Consultant (Famotidine)) 20 mg tablet Discontinued 20 mg PO DAILY 90 May 10, 2023 6:12pm April 23, 2024 11:38am losartan potassium 50 mg oral tablet (20 sources) Angiotensin 2 Receptor Rosana Start: 01-01-2025 take 1 tablet by mouth once daily losartan (COZAAR) 50 MG tablet Take 1 (one) tablet (50 mg total) by mouth daily . 01/01/2025 Active Start: 07-06-2024 End: 07-12-2024 take 1 tablet by mouth once daily Losartan 50 mg tablet Discontinued 50 mg PO daily 180 July 12, 2024 9:35am July 12, 2024 1:00pm Start: 03-03-2023 End: 07-06-2024 take 1 tablet by mouth twice daily Losartan 50 mg tablet Discontinued 50 mg PO TWICE A DAY 180 February 27, 2024 2:20pm July 06, 2024 4:02pm dose increased from 25mg to 50 mg BID Start: 12-07-2022 End: 03-03-2023 take 2 tablets by mouth twice daily Losartan 25 mg tablet Discontinued 50 mg PO TWICE A DAY 360 3 March 03, 2023 8:18am March 03, 2023 9:27am This is a dose increase Start: 12-07-2022 End: 03-03-2023 take 50 mg by mouth twice daily Losartan Discontinued 50 MG PO TWICE A DAY 360 March 03, 2023 8:18am March 03, 2023 9:27am Start: 11-23-2022 End: 12-07-2022 take 1 tablet by mouth twice daily Losartan 25 mg tablet Discontinued 25 mg PO TWICE A DAY 180 November 23, 2022 2:34pm December 07, 2022 4:05pm This is a dose increase Start: 11-08-2022 End: 11-23-2022 take 1 tablet by mouth once daily Losartan 25 mg tablet Discontinued 25 mg PO DAILY 30 November 08, 2022 1:00am November 23, 2022 2:35pm metoprolol tartrate 25 mg oral tablet (20 sources) beta-Adrenergic Rosana Start: 02-06-2025 take 1 tablet by mouth twice daily metoprolol tartrate (LOPRESSOR) 25 MG tablet Take 1 (one) tablet (25 mg total) by mouth 2 (two) times a day . 02/06/2025 Active Start: 02-16-2023 End: 01-28-2025 take 1 tablet by mouth twice daily Metoprolol Tartrate 25 mg tablet Discontinued 25 mg PO TWICE A DAY 180 February 10, 2024 9:51am January 28, 2025 8:12am Start: 11-08-2022 End: 02-16-2023 Metoprolol Tartrate 100 mg t ablet Discontinued 50 mg PO TWICE A DAY 180 November 08, 2022 11:09am February 16, 2023 9:27am Start: 11-08-2022 End: 02-16-2023 take 50 mg by mouth twice daily Metoprolol Tartrate Di scontinued 50 MG PO TWICE A DAY 180 November 08, 2022 11:09am February 16, 2023 9:27am Start: 06-22-2022 End: 11-08-2022 take 1 tablet by mouth twice daily Metoprolol Tartrate 100 mg tablet Discontinued 100 mg PO TWICE A DAY 180 June 22, 2022 12:00am November 08, 2022 11:11am Start: 05-11-2022 End: 06-22-2022 Metoprolol Tartrate 50 mg ta blet Discontinued 75 mg PO TWICE A DAY 90 May 26, 2022 2:37pm June 22, 2022 4:41pm Start: 05-11-2022 End: 06-22-2022 take 75 mg by mouth twice daily Metoprolol Tartrate Di scontinued 75 MG PO TWICE A DAY 90 May 26, 2022 2:37pm June 22, 2022 4:41pm tamsulosin hydrochloride 0.4 mg oral capsule (2 sources) alpha-Adrenergic Rosana Start: 03-25-2025 End: 03-25-2026 take 1 capsule by mouth once daily in the evening tamsulosin (FLOMAX) 0.4 mg capsule Indications: BPH with obstruction/lower urinary tract symptoms Take 1 (one) capsule (0.4 mg total) by mouth every evening . 90 capsule 3 03/25/2025 03/25/2026 Active warfarin sodium 2 mg oral tablet (19 sources) Vitamin K Antagonist Start: 02-07-2025 take 1 tablet by mouth once daily warfarin (COUMADIN) 2 MG tablet Take 1 (one) tablet (2 mg total) by mouth daily 2mg Tuesday & Tuesday - 4mg other days of the week . 02/07/2025 Active Start: 06-29-2024 take 1 tablet by ann marie th every week Warfarin 2 mg tablet Active 2 mg PO .COMPLEX 120 June 29, 2024 8:10am 2 mg orally 2 tablets to = 4mg on Sundays and Tuesdays; one tablet (2mg) all other days of the week, OR as directed; Please contact the information source for Protocol details. Start: 10-03-2023 take 4 mg by mouth once daily Warfarin Active 2 MG PO DAILY 120 October 03, 2023 3:15pm 4mg on ; 2mg ; or use as directed Start: 05-20-2023 End: 06-29-2024 take 2 tablets by mouth once daily Warfarin 2 mg tablet Discontinued 2 mg PO DAILY 120 October 03, 2023 3:15pm June 29, 2024 8:12am 4mg on ; 2mg ; or use as directed Please contact the information source for Protocol details. Completed/Discontinued Medications Medication Drug Class(es) Dates Sig (Normalized) Sig (Original) amiodarone hydrochloride 200 mg oral tablet (20 sources) Antiarrhythmic Start: 07-06-2024 End: 01-03-2025 Amiodarone 200 mg tablet Discontinued 100 mg PO DAILY 90 July 06, 2024 4:02pm January 03, 2025 11:42am Start: 07-06-2022 End: 07-06-2024 take 1 tablet by mouth once daily Amiodarone 200 mg tablet Discontinued 200 mg PO DAILY 90 July 05, 2024 8:04am July 06, 2024 4:02pm Start: 06-22-2022 End: 07-06-2022 take 1 tablet by mouth twice daily, then take 1 tablet by mouth once daily Amiodarone 200 mg tablet Discontinued 0 PO DAILY 30 June 22, 2022 12:00am July 06, 2022 5:51pm 200 mg twice daily x 7 days then 200mg daily orally daily; apixaban 5 mg oral tablet (20 sources) Factor Xa Inhibitor Start: 05-11-2022 End: 07-13-2023 take 1 tablet by mouth twice daily Apixaban (Eliquis) 5 mg tablet Discontinued 5 mg PO TWICE A DAY 60 May 26, 2022 2:38pm June 09, 2022 1:03pm aspirin 81 mg delayed release oral tablet (20 sources) Platelet Aggregation Inhibitor, Nonsteroidal Anti-inflammatory Drug Start: 04-06-2023 End: 01-05-2024 take 1 tablet by mouth once daily Aspirin 81 mg Tablet,Delayed Release (Dr/Ec) Discontinued 81 mg PO DAILY@0800 30 April 06, 2023 12:00am January 05, 2024 9:27am Start: 03-16-2018 End: 05-11-2022 take 1 tablet by mouth once daily Aspirin 81 mg tablet,chewable Discontinued 81 mg PO daily March 16, 2018 12:00am May 11, 2022 3:27pm Heart [facility] 24 hr dilTIAZem hydrochloride 240 mg extended release oral capsule (20 sources) Calcium Channel Rosana Start: 05-11-2022 End: 06-16-2022 take 1 capsule by mouth once daily, then take 1 capsule by mouth every twenty-four hours Diltiazem Hcl (Cartia Xt) 240 mg capsule,extended release 24hr Discontinued 240 mg PO DAILY 30 May 26, 2022 2:38pm June 16, 2022 2:01pm lisinopril 10 mg oral tablet (20 sources) Angiotensin Converting Enzyme Inhibitor Start: 05-11-2022 End: 11-08-2022 take 1 tablet by mouth once daily Lisinopril 10 mg tablet Discontinued 10 mg PO DAILY 30 May 26, 2022 2:38pm November 08, 2022 11:09am raNITIdine 150 mg oral tablet (20 sources) Histamine-2 Receptor Antagonist Start: 03-16-2018 End: 05-26-2022 take 1 tablet by mouth once daily Ranitidine Hcl (Zantac) 150 mg tablet Discontinued 150 mg PO DAILY May 26, 2022 2:41pm May 26, 2022 2:43pm ticagrelor 90 mg oral tablet (10 sources) Start: 04-06-2023 End: 04-21-2023 take 1 tablet by mouth twice daily Ticagrelor (Brilinta) 90 mg Tablet Discontinued 90 mg PO TWICE A DAY 60 April 06, 2023 12:00am April 21, 2023 1:26pm Problems Active Problems Problem Classification Problem Date Documented Date Episodic/Chronic Alcohol-related disorders (18 sources) Alcohol abuse; Translations: [Alcohol abuse, uncomplicated] 06-08-2022 Chronic Cardiac dysrhythmias (20 sources) Irregular heart beat; Translations: [Cardiac arrhythmia, unspecified] Onset: 05-10-2022 Chronic Congestive heart failure; nonhypertensive (20 sources) Heart failure with reduced ejection fraction; Translations: [Unspecified systolic (congestive) heart failure] Chronic Coronary atherosclerosis and other heart disease (12 sources) Coronary arteriosclerosis; Translations: [Atherosclerotic heart disease of [place] coronary artery without angina pectoris] 04-21-2023 Chronic Disorders of lipid metabolism (20 sources) Hyperlipidemia; Translations: [Hyperlipidemia, unspecified] Onset: 07-31-2024 Chronic Esophageal disorders (19 sources) Gastroesophageal reflux disease; Translations: [Gastro-esophageal reflux disease without esophagitis] 06-08-2022 Chronic Essential hypertension (20 sources) Essential hypertension; Translations: [Essential (primary) hypertension] 04-21-2023 Chronic Genitourinary symptoms and ill-defined conditions (12 sources) Increased frequency of urination; Translations: [Frequency of micturition] Onset: 03-25-2025 03-25-2025 Episodic Hyperplasia of prostate (6 sources) Benign prostatic hypertrophy with outflow obstruction; Translations: [Benign prostatic hyperplasia with lower urinary tract symptoms] Onset: 03-25-2025 03-25-2025 Chronic Malaise and fatigue (13 sources) Fatigue; Translations: [Other fatigue] 02-16-2023 Episodic Osteoarthritis (19 sources) Arthritis; Translations: [Unspecified osteoarthritis, unspecified site] 06-08-2022 Chronic Other aftercare (5 sources) Other ocean transportation intermediary (current) drug therapy; Translations: [Long-term (current) use of other medications] Onset: 06-22-2022 11-08-2022 Episodic Other aftercare (9 sources) Long-term current use of anticoagulant; Translations: [termite control servicer (current) use of anticoagulants] 05-20-2023 Episodic Other aftercare (4 sources) alf (current) use of anticoagulants; Translations: [Long-term (current) use of anticoagulants] Onset: 01-23-2025 09-08-2023 Episodic Other and unspecified benign neoplasm (3 sources) Other benign neoplasm of skin of trunk; Translations: [Dermoid cyst of skin of back] 05-07-2024 Episodic Other circulatory disease (13 sources) Elevated blood pressure; Translations: [Elevated blood-pressure reading, without diagnosis of hypertension] 11-08-2022 Episodic Other circulatory disease (4 sources) Elevated blood-pressure reading, without diagnosis of hypertension; Translations: [Elevated blood pressure reading without diagnosis of hypertension] 11-08-2022 Episodic Other diseases of kidney and ureters (2 sources) Other obstructive and reflux uropathy; Translations: [Other obstructive and reflux uropathy] Onset: 03-25-2025 Episodic Other injuries and conditions due to external causes (6 sources) Rupture of corpus cavernosum of penis; Translations: [Fracture of corpus cavernosum penis, initial encounter] Onset: 03-24-2025 02-04-2025 Episodic Other injuries and conditions due to external causes (2 sources) Injury of penis; Translations: [Unspecified injury of external genitals, initial encounter] 03-27-2025 Episodic Other injuries and conditions due to external causes (2 sources) Fracture of corpus cavernosum penis, initial encounter; Translations: [Fracture of corpus cavernosum penis, initial encounter] Onset: 03-24-2025 Episodic Other lower respiratory disease (20 sources) Dyspnea on exertion; Translations: [Other forms of dyspnea] 05-19-2022 Episodic Other lower respiratory disease (7 sources) Other forms of dyspnea; Translations: [Other respiratory abnormalities] Episodic Other male genital disorders (6 sources) Induratio penis plastica; Translations: [Induration penis plastica] Onset: 03-24-2025 03-27-2025 Chronic Other male genital disorders (6 sources) Male erectile dysfunction, unspecified; Translations: [Impotence of organic origin] Onset: 03-24-2025 03-24-2025 Chronic Other male genital disorders (2 sources) Induration penis plastica; Translations: [Induration penis plastica] Onset: 03-24-2025 Chronic Other screening for suspected conditions (not mental disorders or infectious disease) (20 sources) Patient encounter status; Translations: [Encounter for screening for malignant neoplasm of colon] 06-22-2022 Episodic Other skin disorders (7 sources) Cyst of skin; Translations: [Follicular cyst of the skin and subcutaneous tissue, unspecified] 09-08-2023 Episodic Other skin disorders (3 sources) Follicular cyst of the skin and subcutaneous tissue, unspecified; Translations: [Sebaceous cyst] 09-08-2023 Episodic Other upper respiratory disease (19 sources) Seasonal allergy; Translations: [Other seasonal allergic rhinitis] 06-08-2022 Chronic [place]-; endo-; and myocarditis; cardiomyopathy (except that caused by tuberculosis or sexually transmitted disease) (20 sources) Cardiomyopathy; Translations: [Cardiomyopathy, unspecified] Chronic Sprains and strains (5 sources) Strain of left pectoral muscle; Translations: [Strain of muscle and tendon of front wall of thorax, initial encounter] 10-29-2024 Episodic Substance-related disorders (18 sources) Marijuana user; Translations: [Cannabis use, unspecified, uncomplicated] 06-08-2022 Episodic Unclassified (2 sources) Erectile dysfunction, unspecified erectile dysfunction type 03-27-2025 Past or Other Problems Problem Classification Problem Date Documented Da te Episodic/Chronic Coronary atherosclerosis and other heart disease (7 sources) Presence of coronary angioplasty implant and graft; Translations: [Percutaneous transluminal coronary angioplasty status] Onset: 04-25-2024 04-21-2023 Episodic Other aftercare (16 sources) Drug therapy finding; Translations: [Other usp (current) drug therapy] Onset: 06-22-2022 06-22-2022 Episodic Residual codes; unclassified (16 sources) History of cardioversion; Translations: [Other specified postprocedural states] Onset: 06-14-2022 06-22-2022 Episodic Results Test Name Value Interpretation Reference Range Facility Laboratory - Chemistry and C hemistry - challengeon 03-25-2025 Bilirubin Ql (U) Negative Negative [facility] Glucose Ql (U) Negative Normal, Negative mg/dL [facility] Ketones Ql (U) Negative Negative mg/dL [facility] pH (U) 5 [pH] 5.0 - 7.0 [facility] Specific gravity (U) [Rel density] 1.005 1.005 - 1.025 [facility] Urobilinogen Qn (U) 0.2 mg/dL <2.0, 0. 2, Normal, Negative, 1.0, 2.0, <1.0 [facility] Laboratory - Hematology and Cell countson 03-25-2025 Hemoglobin Ql (U) Negative Negative [facility] Laboratory - Urinalysison Leukocyte esterase Test strip Ql (U) Moderate Abnormal Negative [facility] Nitrite Ql (U) Negative Negative [facility] Protein Ql (U) Negative Negative mg/dL [facility] No Panel Informationon 03-25 Interpretation and review of laboratory results Abnormal [facility] Interpretation and review of laboratory results Normal [facility] Measure Post Void Residual 0 [facility] International normalized rat io (INR) measurement by fingerstickOrdered By: Kristi Arroyo on 03-18-2025 INR Coag (BldC) [Relative time] 2.2 [facility] Comment on above: Critical Value > 4.0 Protime w/INR Fingerstickon 03-18-2025 INR Coag (PPP) [Relative time] 2.2 {INR} Normal [facility] Comment on above: Result Comment: Crit ical Value > 4.0 Performed By: #### [id number] #### [facility] [address] [place], [address] Protime [place] 23.7 SEC High 11.7-14.9 [facility] Comment on above: Performed By: #### [id number] #### [facility] [address] [place], [address] Whole blood prothrombin time Ordered By: Kristi Arroyo on 03-18-2025 PT Coag (Bld) [Time] 23.7 s High 11.7-14.9 [facility] Protime w/INR Fingerstickon 03-01-2025 INR Coag (PPP) [Relative time] 1.9 {INR} Normal [facility] Comment on above: Result Comment: Crit ical Value > 4.0 Performed By: #### [id number] #### [facility] [address] [place], [address] Protime [place] 20.8 SEC High 11.7-14.9 [facility] Comment on above: Performed By: #### [id number] #### [facility] [address] [place], [address] International normalized rat io (INR) measurement by fingerstickOrdered By: Kristi Arroyo on 01-31-2025 INR Coag (BldC) [Relative time] 2.0 [facility] Comment on above: Critical Value > 4.0 Protime w/INR Fingerstickon 01-31-2025 INR Coag (PPP) [Relative time] 2.0 {INR} Normal [facility] Comment on above: Result Comment: Crit ical Value > 4.0 Performed By: #### [id number] #### [facility] [address] [place], [address] Protime [place] 21.9 SEC High 11.7-14.9 [facility] Comment on above: Performed By: #### [id number] #### [facility] [address] [place], [address] Whole blood prothrombin time Ordered By: Kristi Arroyo on 01-31-2025 PT Coag (Bld) [Time] 21.9 s High 11.7-14.9 [facility] International normalized rat io (INR) measurement by fingerstickOrdered By: Kristi Arroyo on 01-17-2025 INR Coag (BldC) [Relative time] 1.9 [facility] Comment on above: Critical Value > 4.0 Protime w/INR Fingerstickon 01-17-2025 INR Coag (PPP) [Relative time] 1.9 {INR} Normal [facility] Comment on above: Result Comment: Crit ical Value > 4.0 Performed By: #### L 9200.0000 #### [facility] [address] [place], [address] Protime Coagsen 21.1 SEC High 11.7-14.9 [facility] Comment on above: Performed By: #### L 9200.0000 #### [facility] [address] [place], [address] Whole blood prothrombin time Ordered By: Kristi Arroyo on 01-17-2025 PT Coag (Bld) [Time] 21.1 s High 11.7-14.9 [facility] 12 Lead EKG performed by [facility] on 01-03-2025 12 Lead EKG performed by [facility] [address] [place] [address] 12 Lead EKG performed by [facility] 01/03/25 1122 MR#: [id number] Acct: [id number] Name: REJI ALCARAZ Rep #: [id number] : 1955 69 From: Kristi Romero Attending Dr: ANGELA Rider Status: DEP AMB Ordering Dr: Kristi Arroyo Date: 12/25 Location: [facility] Sex: M C Admitted: BMS/12 Lead EKG performed by [facility] ECG Report Interpretation ---Sinus Bradycardia WITHIN NORMAL LIMITSElectronically signed on 01/08/2025 at 14:53 by Isauro Ulloa Software Version [id number] 01/08/25 1454 Date Kristi MILLER CC: Dr. Prosper Ngo MD Date Dictated: 01/03/251121 Date Transcribed: 01/03/251121 Project Lead: SARA Signed Normal [facility] Cardiology Visit Reporton Cardiology Visit Report [facility] [address] [place] [address] OFFICE VISIT Date of Service: 01/03/25 MR#: [id number] Acct: [id number] Name: REJI ALCARAZ Rep #: [id number] : 1955 Provider: ANGELA Garg Age/Sex: 69/M Location: [facility] Status: Signed HPI HPI History of Present Illness Details: Reji Alcaraz is a pleasant 69-year-old man who presents to the office today for a cardiovascular follow-up visit. In April of 2022 he was diagnosed with atrial fibrillation with RVR. His echocardiogram demonstrated moderately severe global left ventricular systolic function estimated to be 35% with mild to moderate mitral regurgitation and mild to moderate tricuspid regurgitation. Patient had successful cardioversion on 06/14/2022. EKG follow-up on 06/22/2022 showed atrial fibrillation with RVR and he was started on amiodarone therapy. EKG follow-up on 06/30/2021 continued to show atrial fibrillation. He proceeded with a cardioversion on 07/27/2022 with amiodarone assistance. He presented to the office in January 2023 with concerns of worsening SOB. He did have a stress test which demonstrated EKG changes suggestive of ischemia. He did undergo a diagnostic heart cath in 2022 which demonstrated severe two-vessel disease with high-grade circumflex artery lesion and totally occluded right coronary artery with preserved left ventricular systolic function. He did undergo stenting to his distal circumflex. His RCA was proximally occluded, with collaterals. From a cardiac standpoint, the patient is doing well. He denies any palpitations, chest pain, pressure or heaviness. He denies SOB, Orthopnea, and PND. He does not have bleeding issues; no blood in urine, stool or nosebleeds. He denies any decrease in energy level, myalgias, or claudication. He does not have edema, or sudden weight gain. He denies dizziness, syncopal or near syncopal episodes, and headaches. Intake Vital Signs 07/06/24 10:29 10/29/24 11:22 01/03/25 11:18 Height 5 ft 10 in 5 ft 10 in 5 ft 10 in Weight: 181 lb BMI 25.9 BP 119/76 Blood Pressure Location Rt brachial Position Sitting Respiration 18 Pulse 57 L Pulse Source Monitor Pulse Oximetry (%) 94 Oxygen Delivery Method room air Intake Visit Reasons: 6 M FU Template Worker Required: No Accompanied by: Is patient in pain?: No Allergies codeine Allergy (Verified 01/03/25 11:18) Swelling lisinopril Adverse Reaction (Mild, Verified 01/03/25 11:18) Cough Medications ???Medication ???Instructions ???Recorded ???Confirmed ???Type metoprolol tartrate 25 mg tablet 25 mg PO BID #180 tabs 02/10/24 Rx amlodipine 5 mg tablet 5 mg PO DAILY #90 tabs 04/23/24 Rx clopidogrel 75 mg tablet (Plavix) 75 mg PO DAILY #90 tabs 04/23/24 01/03/25 Rx famotidine 20 mg tablet (Acid 20 mg PO DAILY #90 tabs 04/23/24 0 01/03/25 Rx Farm Service Consultant (famotidine)) warfarin 2 mg tablet 2 mg PO .COMPLEX #120 tabs 4 01/03/25 Rx losartan 50 mg tablet 50 mg PO QDAY #90 tabs 07/12/24 Rx acetaminophen 500 mg tablet 500 mg PO Q6H PRN 10/29/24 5 History (Tylenol Extra Strength) atorvastatin 40 mg tablet 40 mg PO QHS #90 tabs 12/27/2407/20 Rx Have you fallen in the past year?: Yes PFSH Medical History Strain of left pectoralis muscle Dermoid cyst of skin of back Essential hypertension CAD (coronary artery disease) Prostate cancer screening Marijuana use ETOH abuse HFrEF (heart failure with reduced ejection fraction) Cardiomyopathy Atrial fibrillation with rapid ventricular response (05/10/22) Irregular heart beat Arthritis Seasonal allergies GERD (gastroesophageal reflux disease) Surgical History Status post coronary artery stent placement History of cardioversion (06/14/22) History of facial surgery History of surgery on arm Family History Father Myocardial infarction, Onset Age: 45 Cancer prostate Social History Smoking Status: Former smoker how long ago did patient quit smokin alcohol intake: never substance use type: marijuana what type of physical activity do you participate in: bicycling frequency: daily ROS Const Const: Negative for fatigue or weakness ENT ENT: Negative for dizziness or balance problems Cardio Chest Pain: No Palpitations: No Edema: None Muscle aches with walking: None Resp Respiratory: Negative for SOB with activity, SOB at rest or SOB orthopnea SOB lying down GI GI: Negative nausea, vomiting or heartburn Musc Musc: Negative for muscle weakness or (more content not included)... Normal [facility] Protime w/INR Fingerstickon 01-03-2025 INR Coag (PPP) [Relative time] 2.0 {INR} Normal [facility] Comment on above: Result Comment: Crit ical Value > 4.0 Performed By: #### L 9200.0000 #### [facility] [address] [place], [place], [address] Protime Coagsen 22.0 SEC High 11.7-14.9 [facility] Comment on above: Performed By: #### L 9200.0000 #### [facility] [address] [place], [place], [phone] Bilirubin directOrdered By: Joe Parra on 01-01-2025 Bilirubin.direct [Mass/Vol] 0.16 mg/dL Normal 0.00-0.30 [facility] Comment on above: Performed By: #### L 9200.0000 #### [facility] [address] [place], [place], [address] Bilirubin, totalOrdered By: Joe Parra on 01-01-2025 Bilirubin [Mass/Vol] 0.37 mg/dL Normal 0.00-1.30 [facility] Comment on above: Performed By: #### L 9200.0000 #### [facility] [address] [place], [place], [id number] Calculated very low density lipoprotein (VLDL) cholesterol measurementOrdered By: Joe Parra on 01-01-2025 Calculated very low density lipoprotein (VLDL) cholesterol measurement 11 mg/dL 5-40 [facility] LDL calc ser/plasOrdered By: Joe Parra on 01-01-2025 Cholesterol in LDL [Mass/Vol] 99 mg/dL Normal [facility] Comment on above: Gsdirqikeo=443-775 m g/dL & Higher Vmst=066 mg/dL or greater Result Comment: Bord cbwask=941-510 mg/dL Higher Xmiv=296 mg/dL or greater Performed By: #### L 9200.0000 #### [facility] [address] [place], [address] Lipid Profileon 01-01-2025 CHOL:HDL 2.37 Normal [facility] Comment on above: Performed By: #### L 9200.0000 #### [facility] [address] [place], [address] Cholesterol in VLDL [Mass/Vol] 11 mg/dL Normal 5-40 [facility] Comment on above: Performed By: #### L [id number] #### [facility] [address] [place], [address] Liver Profileon 01-01-2025 ALK PHOS 74 U/L Normal 40-129 [facility] Comment on above: Performed By: #### L 9200.0000 #### [facility] [address] [place], [address] T PROT 7.3 g/dL Normal 5.9-8.4 [facility] Comment on above: Performed By: #### L 9200.0000 #### [facility] [address] [place], [address] Liver ProfileOrdered By: Colton Prara on 01-01-2025 AST [Catalytic activity/Vol] 27 U/L Normal <=37 [facility] Comment on above: Performed By: #### L 9200.0000 #### [facility] [address] [place], [address] Prothrombin Time w/INRon INR Normal [facility] Comment on above: Order Comment: INR F OR Result Comment: CANC ELLED DUE TO HEMOLYSIS. CALLED OUT PATIENT LAB FOR IT TO BE REDRAWN. Performed By: #### L 9200.0000 #### [facility] [address] [place], [address] PROTIME Normal 11.7-14.9 [facility] Comment on above: Order Comment: INR F OR Result Comment: CANC ELLED DUE TO HEMOLYSIS. CALLED OUT PATIENT LAB FOR IT TO BE REDRAWN. Performed By: #### L 9200.0000 #### [facility] [address] [place], [place], [id number] Screening total cholesterol/ high density lipoprotein (HDL) cholesterol ratioOrdered By: Joe Parra on 01-01-2025 Cholesterol.total/Chol esterol in HDL [Mass ratio] 2.37 {ratio} [facility] Serum globulin measurementOr dered By: Joe Parra on 01-01-2025 Globulin (S) [Mass/Vol] 3.3 g/dL Normal 2.2-4.2 [facility] Comment on above: Performed By: #### L 9200.0000 #### [facility] [address] [place], [place], [phone] ([phone] Serum or plasma alanine arita otransferase (ALT) measurementOrdered By: Joe Parra on 01-01-2025 ALT [Catalytic activity/Vol] 27 U/L Normal <=46 [facility] Comment on above: Performed By: #### L 9200.0000 #### [facility] [address] [place], [place], [phone] Serum or plasma albumin zandra urement (mass/volume)Ordered By: Joe Parra on 01-01-2025 Albumin [Mass/Vol] 4.0 g/dL Normal 3.4-4.8 [facility] Comment on above: Performed By: #### L 9200.0000 #### [facility] [address] [place], [place], [phone] Serum or plasma alkaline michelle sphatase measurementOrdered By: Joe Parra on 01-01-2025 ALP [Catalytic activity/Vol] 74 U/L 40-129 [facility] Serum or plasma cholesterol in HDL measurement (mass/volume)Ordered By: Joe Parra on 01-01-2025 Cholesterol in HDL [Mass/Vol] 80 mg/dL Normal [facility] Comment on above: National Cholesterol Education Program (NCEP) guidelines:<40 mg/dL: Low HDL-cholesterol (major risk factor for CHD)>= 60 mg/dL: High HDL-cholesterol (negative risk factor for CHD)HDL-cholesterol is affected by a number of factors, e.g. smoking, exercise, hormones, sex and age. Result Comment: [place] onal Cholesterol Education Program (NCEP) guidelines: <40 mg/dL: Low HDL-cholesterol (major risk factor for CHD) >= 60 mg/dL: High HDL-cholesterol (negative risk factor for CHD) HDL-cholesterol is affected by a number of factors, e.g. smoking, exercise, hormones, sex and age. Performed By: #### L 9200.0000 #### [facility] [address] [place], [place], [address] Serum or plasma cholesterol measurement (mass/volume)Ordered By: Joe Parra on 01-01-2025 Cholesterol [Mass/Vol] 190 mg/dL Normal <=200 [facility] Comment on above: Cholesterol level, D esirable <200 mg/dLBorderline high cholesterol 200-239 mg/dLHigh cholesterol >=240 mg/dLRecommendations of the NCEP Adult Treatment Panel for the following risk-cutoff thresholds for the [place] population. Result Comment: Chol esterol level, Desirable <200 mg/dL Borderline high cholesterol 200-239 mg/dL High cholesterol >=240 mg/dL Recommendations of the NCEP Adult Treatment Panel for the following risk-cutoff thresholds for the [place] population. Performed By: #### L 9200.0000 #### [facility] [address] [place], [place], [address] Total proteinOrdered By: Colton Parra on 01-01-2025 Protein [Mass/Vol] 7.3 g/dL 5.9-8.4 [facility] Triglycerides measurementOrd ered By: Joe Parra on 01-01-2025 Triglyceride [Mass/Vol] 53 mg/dL Normal [facility] Comment on above: The drugs N-Acetylcy steine and Metamizole may falsely depress this assay. Normal range: <150 mg/dLBorderline High: 150-199 mg/dLHigh: 200-499 mg/dLVery High: >500 mg/dL Result Comment: The drugs N-Acetylcysteine and Metamizole may falsely depress this assay. Normal range: <150 mg/dL Borderline High: 150-199 mg/dL High: 200-499 mg/dL Very High: >500 mg/dL Performed By: #### L 9200.0000 #### [facility] [address] [place], [address] Protime w/INR Fingerstickon 12-18-2024 INR Coag (PPP) [Relative time] 1.7 {INR} Normal [facility] Comment on above: Result Comment: Crit ical Value > 4.0 Performed By: #### L 9200.0000 #### [facility] [address] [place], [address] Protime Coagsen 19.5 SEC High 11.7-14.9 [facility] Comment on above: Performed By: #### L 9200.0000 #### [facility] [address] [place], [place], [phone] INR Coag (BldC) [Relative ti me]Ordered By: Kristi Arroyo on 12-17-2024 INR Coag (Bld) [Relative time] 1.7 {INR} [facility] Comment on above: Critical Value > 4.0 International normalized rat io (INR) measurement by fingerstickOrdered By: Kristi Arroyo on 12-17-2024 INR Coag (BldC) [Relative time] 1.7 [facility] Comment on above: Critical Value > 4.0 PT Coag (Bld) [Time]Ordered By: Kristi Arroyo on 12-17-2024 Bedside Prothrombin Time 19.5 SEC High 11.7-14.9 [facility] Whole blood prothrombin time Ordered By: Kristi Arroyo on 12-17-2024 PT Coag (Bld) [Time] 19.5 s High 11.7-14.9 [facility] INR Coag (BldC) [Relative ti me]Ordered By: Kristi Arroyo on 11-16-2024 INR Coag (Bld) [Relative time] 2.0 {INR} [facility] Comment on above: Critical Value > 4.0 International normalized rat io (INR) measurement by fingerstickOrdered By: Kristi Arroyo on 11-16-2024 INR Coag (BldC) [Relative time] 2.0 [facility] Comment on above: Critical Value > 4.0 PT Coag (Bld) [Time]Ordered By: Kristi Arroyo on 11-16-2024 Bedside Prothrombin Time 22.3 SEC High 11.7-14.9 [facility] Prothrombin Time w/INRon INR Normal [facility] Comment on above: Order Comment: Comme nts: STANDING ORDERFINGERSTICK OK Result Comment: PT I S A FINGER STICK Performed By: #### L 9200.0000 #### [facility] [address] [place], [place], [phone] PROTIME Normal 11.7-14.9 [facility] Comment on above: Order Comment: Comme nts: STANDING ORDERFINGERSTICK OK Result Comment: PT I S A FINGER STICK Performed By: #### L 9200.0000 #### [facility] [address] [place], [place], [phone] ([phone] Protime w/INR Fingerstickon 11-16-2024 INR Coag (PPP) [Relative time] 2.0 {INR} Normal [facility] Comment on above: Result Comment: Crit ical Value > 4.0 Performed By: #### L 9200.0000 #### [facility] [address] [place], [place], [phone] ([phone] Protime Coagsen 22.3 SEC High 11.7-14.9 [facility] Comment on above: Performed By: #### L 9200.0000 #### [facility] [address] [place], [place], [phone] Whole blood prothrombin time Ordered By: Kristi Arroyo on 11-16-2024 PT Coag (Bld) [Time] 22.3 s High 11.7-14.9 [facility] MR/BMS.IMBon 10-29-2024 MR/BMS.IMB [facility] [address] [place] [address] OFFICE VISIT Date of Service: 10/29/24 MR#: [id number] Acct: [id number] Name: REJI ALCARAZ Rep #: [id number] : 1955 Provider: Dr. Prosper sandy MD Age/Sex: 69/M Location: [facility] Status: Signed Intake Vital Signs 10/29/24 10:09 10/29/24 11:22 Height 5 ft 10 in 5 ft 10 in Weight: 171 lb BMI 24.5 BP 158/74 H Blood Pressure Location Rt brachial Position Sitting Respiration 16 Pulse 62 Pulse Source Monitor Temp 98.4 F Temp Source Temporal Pulse Oximetry (%) 98 Oxygen Delivery Method room air Intake Visit Reasons: Left shoulder pain Chief Complaint: left shoulder pain Template Worker Required: No Accompanied by: Is patient in pain?: No Allergies codeine Allergy (Verified 10/29/24 11:16) Swelling lisinopril Adverse Reaction (Mild, Verified 10/29/24 11:16) Cough Medications ???Medication ???Instructions ???Recorded ???Confirmed ???Type atorvastatin 40 mg tablet 40 mg PO QHS #90 tabs 01/05/2412/18 Rx metoprolol tartrate 25 mg tablet 25 mg PO BID #180 tabs 02/10/24 Rx amlodipine 5 mg tablet 5 mg PO DAILY #90 tabs 04/23/24 Rx clopidogrel 75 mg tablet (Plavix) 75 mg PO DAILY #90 tabs 04/23/24 10/29/24 Rx famotidine 20 mg tablet (Acid 20 mg PO DAILY #90 tabs 04/23/24 0 10/29/24 Rx Farm Service Consultant (famotidine)) warfarin 2 mg tablet 2 mg PO .COMPLEX #120 tabs 4 10/29/24 Rx amiodarone 200 mg tablet 100 mg (1/2 x 200 mg) PO DAILY #90 07/06/24 10/29/24 Rx TABLETS losartan 50 mg tablet 50 mg PO QDAY #90 tabs 07/12/24 Rx acetaminophen 500 mg tablet 500 mg PO Q6H PRN 10/29/24 5 History (Tylenol Extra Strength) Have you fallen in the past year?: Yes (09/2024, fell down stairs) [facility] Medical History (Updated 10/29/24 @ 13:[address] Prosper Ngo MD) Strain of left pectoralis muscle Dermoid cyst of skin of back Essential hypertension CAD (coronary artery disease) Prostate cancer screening Marijuana use ETOH abuse HFrEF (heart failure with reduced ejection fraction) Cardiomyopathy Atrial fibrillation with rapid ventricular response (05/10/22) Irregular heart beat Arthritis Seasonal allergies GERD (gastroesophageal reflux disease) Surgical History Status post coronary artery stent placement History of cardioversion (06/14/22) History of facial surgery History of surgery on arm Family History Father Myocardial infarction, Onset Age: 45 Cancer prostate Social History (Updated 10/29/24 @ 11:21 by Eugene Madrigal RN) Smoking Status: Former smoker how long ago did patient quit smokin alcohol intake: never substance use type: marijuana what type of physical activity do you participate in: bicycling frequency: daily HPI HPI Chief Complaint: left shoulder pain Details: REJI ALCARAZ, is a 69 M who presents to the office today for an acute care follow-up visit. 69-year-old gentleman who has a history of atrial fibrillation, RVR, heart failure, hyperlipidemia, CAD, status post stent on long-term anticoagulation. Most of his medications are basically managed through cardiology include losartan, metoprolol, Plavix, aspirin, amlodipine and amiodarone. Patient was at home, about 3 weeks ago when he was coming down a set of steps. He missed the first few steps, and then apparently tumbled forward, landing most of his weight on the left posterior shoulder. He was upside down towards the bottom of the steps when his spouse came to assist. He had initially a bruise that started the day after he had fallen. He did not hit his head to any significant degree but to his knowledge. There were no sore areas on the neck or head but just the shoulder area. The bruise itself was left posterior lateral shoulder, just under the shoulder blade itself. However over the ensuing several weeks, he has had ongoing intermittent discomfort, left pectoralis region. He describes it as somewhat of a burning type of sensation that makes him think this is muscular but he wanted to make sure it was okay. He did not have dyspnea, chest pain per se, nausea, vomiting, focal areas of numbness or tingling. Some of this does radiate up towards the axilla area from the left pectoralis region. There was a bruise skin on the left posterior lateral mid rib cage area. Review of systems per chart. Physical exam. Vital signs on chart. My focused examination does not show any bruises residual. There is a little bit of fluctuant area along the left lateral rib cage, that make me wonder if he did not have a small hematoma but still present that is not necessarily tender. The (more content not included)... Normal [facility] INR Coag (BldC) [Relative ti me]Ordered By: Kristi Arroyo on 10-18-2024 INR Coag (Bld) [Relative time] 2.1 {INR} [facility] Comment on above: Critical Value > 4.0 PT Coag (Bld) [Time]Ordered By: Kristi Arroyo on 10-18-2024 Bedside Prothrombin Time 23.2 SEC High 11.7-14.9 [facility] Protime w/INR Fingerstickon 10-18-2024 INR Coag (PPP) [Relative time] 2.1 {INR} Normal [facility] Comment on above: Result Comment: Crit ical Value > 4.0 Performed By: #### L 9200.0000 #### [facility] [address] [place], [address] Protime Coagsen 23.2 SEC High 11.7-14.9 [facility] Comment on above: Performed By: #### L 9200.0000 #### [facility] [address] [place], [address] INR Coag (BldC) [Relative ti me]Ordered By: Kristi Arroyo on 09-18-2024 INR Coag (Bld) [Relative time] 2.2 {INR} [facility] Comment on above: Critical Value > 4.0 PT Coag (Bld) [Time]Ordered By: Kristi Arroyo on 09-18-2024 Bedside Prothrombin Time 23.7 SEC High 11.7-14.9 [facility] Protime w/INR Fingerstickon 09-18-2024 INR Coag (PPP) [Relative time] 2.2 {INR} Normal [facility] Comment on above: Result Comment: Crit ical Value > 4.0 Performed By: #### L 9200.0000 #### [facility] [address] [place], [address] Protime Coagsen 23.7 SEC High 11.7-14.9 [facility] Comment on above: Performed By: #### L 9200.0000 #### [facility] [address] [place], [address] Protime w/INR Fingerstickon 09-12-2024 INR Coag (PPP) [Relative time] 1.9 {INR} Normal [facility] Comment on above: Result Comment: Crit ical Value > 4.0 Performed By: #### L 9200.0000 #### [facility] [address] [place], [address] Protime Coagsen 21.1 SEC High 11.7-14.9 [facility] Comment on above: Performed By: #### L 9200.0000 #### [facility] [address] [place], [address] Protime w/INR Fingerstickon 08-22-2024 INR Coag (PPP) [Relative time] 2.4 {INR} Normal [facility] Comment on above: Result Comment: Crit ical Value > 4.0 Performed By: #### L 9200.0000 #### [facility] [address] [place], [address] Protime Coagsen 25.6 SEC High 11.7-14.9 [facility] Comment on above: Performed By: #### L 9200.0000 #### [facility] [address] [place], [address] Protime w/INR Fingerstickon 08-07-2024 INR Coag (PPP) [Relative time] 1.7 {INR} Normal [facility] Comment on above: Result Comment: Crit ical Value > 4.0 Performed By: #### L 9200.0000 #### [facility] [address] [place], [address] Protime Coagsen 19.3 SEC High 11.7-14.9 [facility] Comment on above: Performed By: #### L 9200.0000 #### [facility] [address] [place], [address] Protime w/INR Fingerstickon 07-25-2024 INR Coag (PPP) [Relative time] 2.9 {INR} Normal [facility] Comment on above: Result Comment: Crit ical Value > 4.0 Performed By: #### L 9200.0000 #### [facility] [address] [place], [address] Protime Coagsen 29.6 SEC High 11.7-14.9 [facility] Comment on above: Performed By: #### L 9200.0000 #### [facility] [address] [place], [address] 12 Lead EKG performed by [facility] on 07-06-2024 12 Lead EKG performed by [facility] [address] [place] [address] 12 Lead EKG performed by [facility] 07/06/24 0959 MR#: [id number] Acct: [id number] Name: REJI ALCARAZ Rep #: [id number] : 1955 69 From: Dixie Haynes NP PSYCHIATRIC LPN-C Attending Dr: TONY Garcia Status: JASMIN CHEUNG Ordering Dr: Dixie Haynes NP, NP-Gabriel Date: 07/06/24 Location: [facility] Sex: M C Admitted: [facility]/12 Lead EKG performed by [facility] ECG Report Interpretation ---Marked sinus Bradycardia -RSR(V1) -nondiagnostic. BORDERLINE RHYTHMElectronically signed on 07/06/2024 at 10:[address] John Dumont [employer] Version 8610 07/06/24 1034 Date Dixie Haynes NP PSYCHIATRIC LPN-C CC: Dr. Prosper Ngo MD Date Dictated: 07/06/24958 Date Transcribed: 07/06/24958 Project Lead: DRAKE Signed Normal [facility] Cardiology Visit Reporton Cardiology Visit Report [facility] [address] [place], [place] [address] OFFICE VISIT Date of Service: 07/06/24 MR#: [id number] Acct: [id number] Name: REJI ALCARAZ Rep #: [id number] : 1955 Provider: TONY fraire Age/Sex: 69/M Location: [facility] Status: Signed HPI HPI History of Present Illness Details: Reji Alcaraz is a pleasant 69-year-old man who presents to the office today for a cardiovascular follow-up visit. In April of 2022 he was diagnosed with atrial fibrillation with RVR. His echocardiogram demonstrated moderately severe global left ventricular systolic function estimated to be 35% with mild to moderate mitral regurgitation and mild to moderate tricuspid regurgitation. Patient had successful cardioversion on 06/14/2022. EKG follow-up on 06/22/2022 showed atrial fibrillation with RVR and he was started on amiodarone therapy. EKG follow-up on 06/30/2021 continued to show atrial fibrillation. He proceeded with a cardioversion on 07/27/2022 with amiodarone assistance. He presented to the office in January with concerns of worsening SOB. He did have a stress test which demonstrated EKG changes suggestive of ischemia. He did undergo a diagnostic heart cath which demonstrated severe two-vessel disease with high-grade circumflex artery lesion and totally occluded right coronary artery with preserved left ventricular systolic function. He did undergo stenting to his distal circumflex. His RCA was proximally occluded, with collaterals. From a cardiac standpoint, the patient is doing well. He denies any palpitations, chest pain, pressure or heaviness. He denies SOB, Orthopnea, and PND. He does not have bleeding issues; no blood in urine, stool or nosebleeds. He denies any decrease in energy level, myalgias, or claudication. He does not have edema, or sudden weight gain. He denies dizziness, syncopal or near syncopal episodes, and headaches. He states he has lost 30lbs since his last office visit with diet alone. Intake Vital Signs 06/26/24 04:07 07/06/24 10:00 07/06/24 16:02 Height 5 ft 10.5 in 5 ft 10 in 5 ft 10 in Weight: 169 lb BMI 24.2 BP 109/70 Blood Pressure Location Lt brachial Position Sitting Respiration 18 Pulse 53 L Pulse Source Monitor Intake Visit Reasons: 6 M FU Allergies codeine Allergy (Verified 07/06/24 15:57) Swelling lisinopril Adverse Reaction (Mild, Verified 07/06/24 15:57) Cough Medications ???Medication ???Instructions ???Recorded ???Confirmed ???Type atorvastatin 40 mg tablet 40 mg PO QHS #90 tabs 01/05/24 07/06/24 Rx metoprolol tartrate 25 mg tablet 25 mg PO BID #180 tabs 02/10/24 07/06/24 Rx amlodipine 5 mg tablet 5 mg PO DAILY #90 tabs 04/23/24 07/06/24 Rx clopidogrel 75 mg tablet (Plavix) 75 mg PO DAILY #90 tabs 04/23/24 07/06/24 Rx famotidine 20 mg tablet (Acid 20 mg PO DAILY #90 tabs 04/23/24 07/06/24 Rx Farm Service Consultant (famotidine)) warfarin 2 mg tablet 2 mg PO .COMPLEX #120 tabs 06/29/24 07/06/24 Rx amiodarone 200 mg tablet 100 mg (1/2 x 200 mg) PO DAILY #90 07/06/24 07/06/24 Rx TABLETS losartan 50 mg tablet 50 mg PO QDAY #180 tabs 07/06/24 07/06/24 Rx Have you fallen in the past year?: No PFSH Medical History Dermoid cyst of skin of back Essential hypertension CAD (coronary artery disease) Prostate cancer screening Marijuana use ETOH abuse HFrEF (heart failure with reduced ejection fraction) Cardiomyopathy Atrial fibrillation with rapid ventricular response (05/10/22) Irregular heart beat Arthritis Seasonal allergies GERD (gastroesophageal reflux disease) Surgical History Status post coronary artery stent placement History of cardioversion (06/14/22) History of facial surgery History of surgery on arm Family History Father Myocardial infarction, Onset Age: 45 Cancer prostate Social History Smoking Status: Former smoker how long ago did patient quit smokin alcohol intake: never substance use type: does not use what type of physical activity do you participate in: bicycling frequency: daily ROS Const Const: Negative for fatigue, weakness, fever(s), headache(s), chills, frequent falls, weight gain or weight loss Eyes Eyes: Negative for blind spots, loss of peripheral vision, transient loss of vision, blurry vision, change in vision, double vision, floaters or tunnel vision ENT ENT: Negative for headache(s), dizziness, Nosebleed/epistaxis, balance problems or neck pain Cardio Chest Pain: No Palpitations: No Edema: None Muscle aches with walking: None Resp Respiratory: Negative f (more content not included)... Normal [facility] Lipid Profileon 07-06-2024 Cholesterol [Mass/Vol] 166 mg/dL Normal 200 [facility] Comment on above: Result Comment: <200 mg/dL Desirable 200-240 mg/dL Borderline >240 mg/dL High Risk Performed By: #### L 9200.0000 #### [facility] [address] [place], [address] Cholesterol in HDL [Mass/Vol] 67 mg/dL Normal [facility] Comment on above: Result Comment: The drugs N-Acetylcysteine and Metamizole may falsely depress this assay. Reference Range HDL <40 mg/dL Low HDL Cholesterol HDL >or= 60 mg/dL High HDL Cholesterol Performed By: #### L 9200.0000 #### [facility] [address] [place], [address] Cholesterol in LDL [Mass/Vol] 84 mg/dL Normal 0-130 [facility] Comment on above: Performed By: #### L 9200.0000 #### [facility] [address] [place], [address] Cholesterol in VLDL [Mass/Vol] 15 mg/dL Normal 5-40 [facility] Comment on above: Performed By: #### L 9200.0000 #### [facility] [address] [place], [address] Triglyceride [Mass/Vol] 77 mg/dL Normal [facility] Comment on above: Result Comment: The drugs N-Acetylcysteine and Metamizole may falsely depress this assay. Serum Triglycerides Reference Interval Normal <150 mg/dL Borderline high 150 - 199 mg/dL High 200 - 499 mg/dL Very High > or = 500 mg/dL Performed By: #### L 9200.0000 #### [facility] [address] [place], [address] Liver Profileon 07-06-2024 Albumin [Mass/Vol] 3.7 g/dL Normal 3.2-5.0 [facility] Comment on above: Performed By: #### L 9200.0000 #### [facility] [address] [place], [address] ALK P 84 U/L Normal 45-117 [facility] Comment on above: Performed By: #### L 9200.0000 #### [facility] [address] [place], [address] ALT [Catalytic activity/Vol] 26 U/L Normal 16-61 [facility] Comment on above: Performed By: #### L 9200.0000 #### [facility] [address] [place], [address] AST [Catalytic activity/Vol] 20 U/L Normal 15-37 [facility] Comment on above: Performed By: #### L 9200.0000 #### [facility] [address] [place], [address] Bilirubin [Mass/Vol] 0.50 mg/dL Normal 0.20-1.00 [facility] Comment on above: Result Comment: For patients on eltrombopag therapy, use of Dimension [place] TBIL is not recommended. Performed By: #### L 9200.0000 #### [facility] [address] [place], [address] Bilirubin.direct [Mass/Vol] 0.17 mg/dL Normal 0.00-0.30 [facility] Comment on above: Performed By: #### L 9200.0000 #### [facility] [address] [place], [address] Globulin (S) [Mass/Vol] 3.3 g/dL Normal 2.2-4.2 [facility] Comment on above: Performed By: #### L 9200.0000 #### [facility] [address] [place], [address] T PROT 7.0 g/dL Normal 6.4-8.2 [facility] Comment on above: Performed By: #### L 9200.0000 #### [facility] [address] [place], [address] Protime w/INR Fingerstickon 06-27-2024 INR Coag (PPP) [Relative time] 2.2 {INR} Normal [facility] Comment on above: Result Comment: Crit ical Value > 4.0 Performed By: #### L 9200.0000 #### [facility] [address] [place], [place], [address] Protime [place] 23.2 SEC High 11.7-14.9 [facility] Comment on above: Performed By: #### L 9200.0000 #### [facility] [address] [place], [place], [address] Protime w/INR Fingerstickon 06-19-2024 INR Coag (PPP) [Relative time] 1.6 {INR} Normal [facility] Comment on above: Result Comment: Crit ical Value > 4.0 Performed By: #### L 9200.0000 #### [facility] [address] [place], [place], [address] Protime [place] 17.3 SEC High 11.7-14.9 [facility] Comment on above: Performed By: #### L 9200.0000 #### [facility] [address] [place], [place], [address] Surgery Visit Reporton 06-08 Surgery Visit Report [facility] [address] [place], [place] [address] OFFICE VISIT Date of Service: 06/08/24 MR#: [id number] Acct: [id number] Name: REJI ALCARAZ Rep #: [id number] : 1955 Provider: Dr. Chandler youngblood MD Age/Sex: 68/M Location: [facility] Status: Signed Intake Vital Signs 05/21/24 08:54 06/08/24 08:38 Height 5 ft 10 in 5 ft 10 in Weight: 175 lb BMI 25.1 BP 136/80 H Blood Pressure Location Rt brachial Position Sitting Respiration 17 Pulse 54 L Pulse Source Monitor Pulse Oximetry (%) 98 Oxygen Delivery Method room air Intake Visit Reasons: EXCISION OF CYST ON BACK Chief Complaint: excision of cysts Is patient in pain?: No Allergies codeine Allergy (Verified 06/08/24 13:35) Swelling lisinopril Adverse Reaction (Mild, Verified 06/08/24 13:35) Cough Medications ???Medication ???Instructions ???Recorded ???Confirmed ???Type amiodarone 200 mg tablet See Rx Instructions .Route 07/18/23 06/08/24 Rx .COMPLEX #90 tabs warfarin 2 mg tablet 2 mg PO DAILY #120 tabs 10/03/23 06/08/24 Rx atorvastatin 40 mg tablet 40 mg PO QHS #90 tabs 01/05/24 06/08/24 Rx metoprolol tartrate 25 mg tablet 25 mg PO BID #180 tabs 02/10/24 06/08/24 Rx losartan 50 mg tablet 50 mg PO BID dose increased from 02/27/24 06/08/24 Rx 25mg to 50 mg BID #180 tabs amlodipine 5 mg tablet 5 mg PO DAILY #90 tabs 04/23/24 06/08/24 Rx clopidogrel 75 mg tablet (Plavix) 75 mg PO DAILY #90 tabs 04/23/24 06/08/24 Rx famotidine 20 mg tablet (Acid 20 mg PO DAILY #90 tabs 04/23/24 06/08/24 Rx Farm Service Consultant (famotidine)) Have you fallen in the past year?: No PFSH Medical History Dermoid cyst of skin of back Essential hypertension CAD (coronary artery disease) Prostate cancer screening Marijuana use ETOH abuse HFrEF (heart failure with reduced ejection fraction) Cardiomyopathy Atrial fibrillation with rapid ventricular response (05/10/22) Irregular heart beat Arthritis Seasonal allergies GERD (gastroesophageal reflux disease) Surgical History Status post coronary artery stent placement History of cardioversion (06/14/22) History of facial surgery History of surgery on arm Family History Father Myocardial infarction, Onset Age: 45 Cancer prostate Social History Smoking Status: Former smoker how long ago did patient quit smokin alcohol intake: never substance use type: does not use what type of physical activity do you participate in: bicycling frequency: daily HPI HPI HPI: Patient is here for excision of 2 back cysts he has been holding his Plavix and Coumadin for 5 days ROS General General: Yes weight change; No appetite, fatigue, colon cancer, breast cancer or weakness HEENT HEENT: No difficulty swallowing, eye injury, eye surgery, swollen glands or hoarseness Endo Endocrine: No thyroid disease, diabetes mellitus, thyroid cancer, Hair loss, heat intolerance or cold intolerance Skin Skin: No rash or changing moles Musc Musculoskeletal: No back problems, arthritis, rheumatoid arthritis, gout or joint pain Cardio Cardiovascular: Yes heart disease, atrial fibrillation, high blood pressure and heart stent; No murmur, pacemaker, heart attack, palpitations, shortness of breat with exertion or chest pain Psych Psychiatric: No depression, anxiety or hearing voices Resp Respiratory: Yes shortness of breath, No sleep apnea, No cough, No COPD, No asthma, No emphysema and No wheezing Gastro Gastrointestinal: No abdominal pain, No nausea or vomiting, No diarrhea, No constipation, No blood in stool, No acid reflux, Yes hemorrhoids, No ulcers, No gallbladder problem and No black,tarry stools Julian Hematologic: Yes blood thinners, No blood disorders, No bleeding, No anemia and No blood clots Neuro Neurologic: No system reviewed and no additional complaints, except as documented, No as per HPI, No abnormal gait, No abnormal hearing, No abnormal movements, No abnormal speech, No behavioral changes, No burning sensations, No confusion, No convulsions, No disequilibrium, No dizziness, No localized weakness, No frequent falls, No headache(s), No lack of coordination, No loss of vision, No memory loss, No numbness, No other visual disturbances, No radicular pain, No restless legs, No sensory deficit, No syncope, No tingling, No tremor(s), No weakness and No other Office Procedures Excision of skin Provider Documentation Provider Documentation: The 2 areas of the back were prepped and draped. Injection with local anesthetic. Next an incision was made and deepened t (more content not included)... Normal [facility] Protime w/INR Fingerstickon 06-01-2024 INR Coag (PPP) [Relative time] 2.2 {INR} Normal [facility] Comment on above: Result Comment: Crit ical Value > 4.0 Performed By: #### L 9200.0000 #### [facility] [address] [place], [address] Protime [place] 23.1 SEC High 11.7-14.9 [facility] Comment on above: Performed By: #### L 9200.0000 #### [facility] [address] [place], [address] Protime w/INR Fingerstickon 05-29-2024 INR Coag (PPP) [Relative time] 2.5 {INR} Normal [facility] Comment on above: Result Comment: Crit ical Value > 4.0 Performed By: #### L 9200.0000 #### [facility] [address] [place], [address] Protime [place] 25.7 SEC High 11.7-14.9 [facility] Comment on above: Performed By: #### L 9200.0000 #### [facility] [address] [place], [address] Surgery Visit Reporton 05-21 Surgery Visit Report [facility] [address] [place], [place] [address] OFFICE VISIT Date of Service: 05/21/24 MR#: [id number] Acct: [id number] Name: REJI ALCARAZ Rep #: [id number] : 1955 Provider: Dr. Chandler youngblood MD Age/Sex: 68/M Location: [facility] Status: Signed Intake Vital Signs 01/05/24 08:40 05/21/24 08:54 Height 5 ft 10.5 in 5 ft 10 in Weight: 175 lb BMI 25.1 BP 136/80 H Blood Pressure Location Rt brachial Position Sitting Respiration 17 Pulse 54 L Pulse Source Monitor Pulse Oximetry (%) 98 Oxygen Delivery Method room air Intake Visit Reasons: CYST BETWEEN SHOULDER BLADES Chief Complaint: cyst between shoulder blades Allergies codeine Allergy (Verified 05/21/24 08:55) Swelling lisinopril Adverse Reaction (Mild, Verified 05/21/24 08:55) Cough Medications ???Medication ???Instructions ???Recorded ???Confirmed ???Type amiodarone 200 mg tablet See Rx Instructions .Route 07/18/23 05/21/24 Rx .COMPLEX #90 tabs warfarin 2 mg tablet 2 mg PO DAILY #120 tabs 10/03/23 05/21/24 Rx atorvastatin 40 mg tablet 40 mg PO QHS #90 tabs 01/05/24 05/21/24 Rx metoprolol tartrate 25 mg tablet 25 mg PO BID #180 tabs 02/10/24 05/21/24 Rx losartan 50 mg tablet 50 mg PO BID dose increased from 02/27/24 05/21/24 Rx 25mg to 50 mg BID #180 tabs amlodipine 5 mg tablet 5 mg PO DAILY #90 tabs 04/23/24 05/21/24 Rx clopidogrel 75 mg tablet (Plavix) 75 mg PO DAILY #90 tabs 04/23/24 05/21/24 Rx famotidine 20 mg tablet (Acid 20 mg PO DAILY #90 tabs 04/23/24 05/21/24 Rx Farm Service Consultant (famotidine)) Have you fallen in the past year?: No PFSH Medical History Dermoid cyst of skin of back Essential hypertension CAD (coronary artery disease) Prostate cancer screening Marijuana use ETOH abuse HFrEF (heart failure with reduced ejection fraction) Cardiomyopathy Atrial fibrillation with rapid ventricular response (05/10/22) Irregular heart beat Arthritis Seasonal allergies GERD (gastroesophageal reflux disease) Surgical History Status post coronary artery stent placement History of cardioversion (06/14/22) History of facial surgery History of surgery on arm Family History Father Myocardial infarction, Onset Age: 45 Cancer prostate Social History Smoking Status: Former smoker how long ago did patient quit smokin alcohol intake: never substance use type: does not use what type of physical activity do you participate in: bicycling frequency: daily HPI HPI HPI: Patient is a 68-year-old male with 2 large sebaceous cyst on his back he would like removed. He says these do not drain anything. ROS General General: Yes weight change; No appetite, fatigue, colon cancer, breast cancer or weakness HEENT HEENT: No difficulty swallowing, eye injury, eye surgery, swollen glands or hoarseness Endo Endocrine: No thyroid disease, diabetes mellitus, thyroid cancer, Hair loss, heat intolerance or cold intolerance Skin Skin: No rash or changing moles Musc Musculoskeletal: No back problems, arthritis, rheumatoid arthritis, gout or joint pain Cardio Cardiovascular: Yes heart disease, atrial fibrillation, high blood pressure and heart stent; No murmur, pacemaker, heart attack, palpitations, shortness of breat with exertion or chest pain Psych Psychiatric: No depression, anxiety or hearing voices Resp Respiratory: Yes shortness of breath, No sleep apnea, No cough, No COPD, No asthma, No emphysema and No wheezing Gastro Gastrointestinal: No abdominal pain, No nausea or vomiting, No diarrhea, No constipation, No blood in stool, No acid reflux, Yes hemorrhoids, No ulcers, No gallbladder problem and No black,tarry stools Julian Hematologic: Yes blood thinners, No blood disorders, No bleeding, No anemia and No blood clots Neuro Neurologic: No system reviewed and no additional complaints, except as documented, No as per HPI, No abnormal gait, No abnormal hearing, No abnormal movements, No abnormal speech, No behavioral changes, No burning sensations, No confusion, No convulsions, No disequilibrium, No dizziness, No localized weakness, No frequent falls, No headache(s), No lack of coordination, No loss of vision, No memory loss, No numbness, No other visual disturbances, No radicular pain, No restless legs, No sensory deficit, No syncope, No tingling, No tremor(s), No weakness and No other Assessment and Plan Assessment and Plan (1) Dermoid cyst of skin of back: Status: Acute Plan: He has 2 large cysts of the back that I discussed removing. I discussed this with him i (more content not included)... Normal [facility] Protime w/INR Fingerstickon 05-11-2024 INR Coag (PPP) [Relative time] 3.7 {INR} Normal [facility] Comment on above: Result Comment: Crit ical Value > 4.0 Performed By: #### L 9200.0000 #### [facility] [address] [place], [address] Protime [place] 35.9 SEC High 11.7-14.9 [facility] Comment on above: Performed By: #### L 9200.0000 #### [facility] [address] [place], [address] Lipid Profileon 04-04-2024 Cholesterol [Mass/Vol] 158 mg/dL Normal 200 [facility] Comment on above: Order Comment: PER P T-DO VANE ARROYO ORDERLIVER [id number] Result Comment: <200 mg/dL Desirable 200-240 mg/dL Borderline >240 mg/dL High Risk Performed By: #### L 9200.0000 #### [facility] [address] [place], [address] Cholesterol in HDL [Mass/Vol] 58 mg/dL Normal [facility] Comment on above: Order Comment: PER P T-DO VANE ARROYO ORDERLIVER [id number] Result Comment: The drugs N-Acetylcysteine and Metamizole may falsely depress this assay. Reference Range HDL <40 mg/dL Low HDL Cholesterol HDL >or= 60 mg/dL High HDL Cholesterol Performed By: #### L 9200.0000 #### [facility] [address] [place], [address] Cholesterol in LDL [Mass/Vol] 77 mg/dL Normal 0-130 [facility] Comment on above: Order Comment: PER P T-DO VANE ARROYO ORDERLIVER [id number] Performed By: #### L 9200.0000 #### [facility] [address] [place], [address] Cholesterol in VLDL [Mass/Vol] 23 mg/dL Normal 5-40 [facility] Comment on above: Order Comment: PER P T-DO VANE ARROYO ORDERLIVER [id number] Performed By: #### L 9200.0000 #### [facility] [address] [place], [address] Triglyceride [Mass/Vol] 116 mg/dL Normal [facility] Comment on above: Order Comment: PER P T-DO VANE ARROYO ORDERLIVER [id number] Result Comment: The drugs N-Acetylcysteine and Metamizole may falsely depress this assay. Serum Triglycerides Reference Interval Normal <150 mg/dL Borderline high 150 - 199 mg/dL High 200 - 499 mg/dL Very High > or = 500 mg/dL Performed By: #### L 9200.0000 #### [facility] [address] [place], [address] HDL Normal [facility] Comment on above: Result Comment: DUPL ICATE ORDERS The drugs N-Acetylcysteine and Metamizole may falsely depress this assay. Performed By: #### L 500.4100, L500.3400 #### [facility] [address] [place], [address] TRIG Normal [facility] Comment on above: Result Comment: DUPL ICATE ORDERS The drugs N-Acetylcysteine and Metamizole may falsely depress this assay. Performed By: #### L 500.4100, L500.3400 #### [facility] [address] [place], [address] CHOL Normal 200 [facility] Comment on above: Result Comment: DUPL ICATE ORDERS Performed By: #### L 500.4100, L500.3400 #### [facility] [address] [place], [address] LDL Normal 0-130 [facility] Comment on above: Result Comment: DUPL ICATE ORDERS Performed By: #### L 500.4100, L500.3400 #### [facility] [address] [place], [address] VLDL Normal 5-40 [facility] Comment on above: Result Comment: DUPL ICATE ORDERS Performed By: #### L 500.4100, L500.3400 #### [facility] [address] [place], [address] Liver Profileon 04-04-2024 Albumin [Mass/Vol] 3.9 g/dL Normal 3.2-5.0 [facility] Comment on above: Order Comment: PER P T-DO VANE ARROYO ORDERLIVER [id number] Performed By: #### L 9200.0000 #### [facility] [address] [place], [address] ALK P 67 U/L Normal 45-117 [facility] [facility] Comment on above: Order Comment: PER P T-DO VANE ARROYO ORDERLIVER [id number] Performed By: #### L [id number] #### [facility] [address] [place], [address] ALT [Catalytic activity/Vol] 31 U/L Normal 16-61 [facility] Comment on above: Order Comment: PER P T-DO VANE ARROYO ORDERLIVER [id number] Performed By: #### L [id number] #### [facility] [address] [place], [address] AST [Catalytic activity/Vol] 25 U/L Normal 15-37 [facility] Comment on above: Order Comment: PER P T-DO VANE ARROYO ORDERLIVER [id number] Performed By: #### L [id number] #### [facility] [address] [place], [address] Bilirubin [Mass/Vol] 0.60 mg/dL Normal 0.20-1.00 [facility] Comment on above: Order Comment: PER P T-DO VANE ARROYO ORDERLIVER [id number] Result Comment: For patients on eltrombopag therapy, use of Dimension [place] TBIL is not recommended. Performed By: #### L [id number] #### [facility] [address] [place], [address] Bilirubin.direct [Mass/Vol] 0.16 mg/dL Normal 0.00-0.30 [facility] Comment on above: Order Comment: PER P T-DO VANE ARROYO ORDERLIVER [id number] Performed By: #### L [id number] #### [facility] [address] [place], [address] Globulin (S) [Mass/Vol] 3.9 g/dL Normal 2.2-4.2 [facility] Comment on above: Order Comment: PER P T-DO VANE PRUITTELL ORDERLIVER [id number] Performed By: #### L [id number] #### [facility] [address] [place], [address] T PROT 7.8 g/dL Normal 6.4-8.2 [facility] Comment on above: Order Comment: PER P T-DO VANE PRUITTELL ORDERLIVER [id number] Performed By: #### L [id number] #### [facility] [address] [place], [address] ALB Normal 3.2-5.0 [facility] Comment on above: Result Comment: DUPL ICATE ORDERS Performed By: #### L 500.4100, [id number] #### [facility] [address] [place], [address] ALK P Normal 45-117 [facility] Comment on above: Result Comment: DUPL ICATE ORDERS Performed By: #### L 500.4100, [id number] #### [facility] [address] [place], [address] ALT Normal 16-61 [facility] Comment on above: Result Comment: DUPL ICATE ORDERS Performed By: #### L 500.4100, [id number] #### [facility] [address] [place], [address] AST Normal 15-37 [facility] Comment on above: Result Comment: DUPL ICATE ORDERS Performed By: #### L 500.4100, [id number] #### [facility] [address] [place], [address] D BILI Normal 0.00-0.30 [facility] Comment on above: Result Comment: DUPL ICATE ORDERS Performed By: #### L 500.4100, [id number] #### [facility] [address] [place], [address] T BILI Normal 0.20-1.00 [facility] Comment on above: Result Comment: DUPL ICATE ORDERS Performed By: #### L 500.4100, [id number] #### [facility] [address] [place], [address] T PROT Normal 6.4-8.2 [facility] Comment on above: Result Comment: DUPL ICATE ORDERS Performed By: #### L 500.4100, [id number] #### [facility] [address] [place], [address] Prothrombin Time w/INRon INR Coag (PPP) [Relative time] 2.7 {INR} Normal [facility] Comment on above: Order Comment: PER P T-DO VANE ARROYO ORDERLAURAVER [id number] Performed By: #### L [id number] #### [facility] [address] [place], [address] PT Coag (PPP) [Time] 28.8 s High 11.7-14.9 [facility] Comment on above: Order Comment: PER P T-DO VANE ARROYO ORDERLIVER [id number] Performed By: #### L [id number] #### [facility] [address] [place], [place], [address] Protime w/INR Fingerstickon 04-02-2024 INR Coag (PPP) [Relative time] 3.7 {INR} Normal [facility] Comment on above: Result Comment: PT N EEDED DRAWN FOR OTHER TESTS SO DID NOT DO A FINGERSTICK Critical Value > 4.0 Performed By: #### L [id number] #### [facility] [address] [place], [place], [address] Protime Coagsen 36.5 SEC High 11.7-14.9 [facility] Comment on above: Result Comment: PT N EEDED DRAWN FOR OTHER TESTS SO DID NOT DO A FINGERSTICK Performed By: #### L [id number] #### [facility] [address] [place], [place], [address] Basophil percentageOrdered B y: [facility] Laila on 01-05-2024 Bilirubin [Mass/Vol] 0.60 mg/dL 0.20-1.00 [facility] Comment on above: For patients on eltr ombopag therapy, use of Dimension [place] TBIL is not recommended. Cholesterol [Mass/Vol] 214 mg/dL <200 [facility] Comment on above: <200 mg/dL Desirable 200-240 mg/dL Borderline >240 mg/dL High Risk Protein [Mass/Vol] 7.4 g/dL 6.4-8.2 [facility] Triglyceride [Mass/Vol] 111 mg/dL <199 [facility] Comment on above: The drugs N-Acetylcy steine and Metamizole may falsely depress this assay.Serum Triglycerides Reference Interval Normal <150 mg/dL Borderline high 150 - 199 mg/dL High 200 - 499 mg/dL Very High > or = 500 mg/dL Capillary blood internationa l normalized ratio (INR)Ordered By: Kristi Arroyo on 01-05-2024 INR Coag (BldC) [Relative time] 2.1 [facility] Comment on above: Critical Value > 4.0 Direct bilirubinOrdered By: [facility] Me[facility] Laila on 01-05-2024 Bilirubin.direct [Mass/Vol] 0.15 mg/dL 0.00-0.30 [facility] - Chemistry and C hemistry - challengeOrdered By: Isauro Ulloa on 01-05-2024 ALP [Catalytic activity/Vol] 56 U/L 45-117 [facility] ALT [Catalytic activity/Vol] 29 U/L 16-61 [facility] Cholesterol in HDL [Mass/Vol] 57 mg/dL >40 [facility] Comment on above: The drugs N-Acetylcy steine and Metamizole may falsely depress this assay. Reference Range HDL <40 mg/dL Low HDL Cholesterol HDL >or= 60 mg/dL High HDL Cholesterol Cholesterol in LDL [Mass/Vol] 135 mg/dL 0-130 [facility] Globulin (S) [Mass/Vol] 3.7 g/dL 2.2-4.2 [facility] No Panel InformationOrdered By: Isauro Ulloa on 01-05-2024 VLDL Cholesterol 22 mg/dL 5-40 [facility] Thin prep Papanicolaou smear with manual screeningOrdered By: Isauro Ulloa on 01-05-2024 Thin prep Papanicolaou smear with manual screening 3.7 g/dL 3.2-5.0 [facility] Thin prep Papanicolaou smear with manual screening 20 U/L 15-37 [facility] Whole blood prothrombin time Ordered By: Kristi Arroyo on 01-05-2024 PT Coag (Bld) [Time] 22.0 s 11.7-14.9 [facility] Capillary blood internationa l normalized ratio (INR)Ordered By: Kristi Arroyo on 11-14-2023 INR Coag (BldC) [Relative time] 2.4 [facility] Comment on above: Critical Value > 4.0 Whole blood prothrombin time Ordered By: Kristi Arroyo on 11-14-2023 PT Coag (Bld) [Time] 24.6 s 11.7-14.9 [facility] Absolute lymphocyte countOrd ered By: Prosper Ngo on 09-21-2023 Lymphocytes Auto (Unsp spec) [#/Vol] 1.46 10*3/uL 0.83-4.51 [facility] Basophil percentageOrdered B y: Prosper Ngo on 09-21-2023 Basophils/100 WBC (Bld) 0.9 % 0-1 [facility] Bilirubin [Mass/Vol] 0.40 mg/dL 0.20-1.00 [facility] Comment on above: For patients on eltr ombopag therapy, use of Dimension [place] TBIL is not recommended. Chloride [Moles/Vol] 107 mmol/L 98-107 [facility] Cholesterol [Mass/Vol] 222 mg/dL <200 [facility] Comment on above: <200 mg/dL Desirable 200-240 mg/dL Borderline >240 mg/dL High Risk Eosinophils/100 WBC (Bld) 2.9 % 0-5 [facility] Glucose [Mass/Vol] 108 mg/dL 74-106 [facility] Comment on above: Fasting Glucose resu lt from 100 to 125 mg/dL suggests IMPAIRED HOMEOSTASIS per A.D.A. criteria. Neutrophils (Bld) [#/Vol] 5.6 10*3/uL 2.0-7.7 [facility] Neutrophils/100 WBC (Bld) 70.1 % 47-70 [facility] Potassium [Moles/Vol] 3.6 mmol/L 3.5-5.1 [facility] Protein [Mass/Vol] 7.6 g/dL 6.4-8.2 [facility] Sodium [Moles/Vol] 138 mmol/L 136-145 [facility] Triglyceride [Mass/Vol] 140 mg/dL <199 [facility] Comment on above: The drugs N-Acetylcy steine and Metamizole may falsely depress this assay.Serum Triglycerides Reference Interval Normal <150 mg/dL Borderline high 150 - 199 mg/dL High 200 - 499 mg/dL Very High > or = 500 mg/dL WBC (Bld) [#/Vol] 8.0 10*3/uL 4.4-11.0 [facility] Blood erythrocytes count (nu mber/volume)Ordered By: Prosper Ngo on 09-21-2023 RBC (Bld) [#/Vol] 4.82 10*6/uL 4.6-6.2 [facility] Blood hemoglobin measurement (mass/volume)Ordered By: Prosper Ngo on 09-21-2023 Hemoglobin (Bld) [Mass/Vol] 15.0 g/dL 13.0-16.5 [facility] Blood lymphocytes/100 leukoc ytesOrdered By: Prosper Ngo on 09-21-2023 Lymphocytes/100 WBC (Bld) 18.4 % 19-41 [facility] Blood monocytes/100 leukocyt esOrdered By: Prosper Ngo on 09-21-2023 Monocytes/100 WBC (Bld) 6.8 % 0-10 [facility] Blood platelet mean volumeOr dered By: Prosper Ngo on 09-21-2023 Platelet mean volume (Bld) [Entitic vol] 9.2 fL 6.2-12.0 [facility] Determination of erythrocyte mean corpuscular volume (MCV)Ordered By: Prosper Ngo on 09-21-2023 MCV (RBC) [Entitic vol] 95.6 fL 80-94 [facility] Hematocrit Auto (Bld) [Volum e fraction]Ordered By: Prosper Ngo on 09-21-2023 Hematocrit (Bld) [Volume fraction] 46.1 % 40-54 [facility] - Chemistry and C hemistry - challengeOrdered By: Prosper Ngo on 09-21-2023 ALP [Catalytic activity/Vol] 54 U/L 45-117 [facility] ALT [Catalytic activity/Vol] 30 U/L 16-61 [facility] CO2 [Moles/Vol] 24.0 mmol/L 21.0-32.0 [facility] Globulin (S) [Mass/Vol] 3.9 g/dL 2.2-4.2 [facility] Urea nitrogen/Creatinine [Mass ratio] 13.2 mg/mg 10-20 [facility] - Hematology and Cell countsOrdered By: Prosper Ngo on 09-21-2023 Erythrocyte distribution width (RBC) [Entitic vol] 48.5 fL 35.1-43.9 [facility] Erythrocyte distribution width (RBC) [Ratio] 13.6 % 11.6-14.6 [facility] Immature granulocytes/100 WBC (Bld) 0.900 % 0.0-0.9 [facility] Comment on above: IG% - Immature Granu locytes (promyelocytes, myelocytes and metamyelocytes) > 1% indicates that a LEFT SHIFT is Present. MCH (RBC) [Entitic mass] 31.1 pg 27.0-32.0 [facility] Nucleated RBC/100 WBC (Bld) [Ratio] 0 % 0-5 [facility] MCHC Auto (RBC) [Mass/Vol]Or dered By: Prosper Ngo on 09-21-2023 MCHC (RBC) [Mass/Vol] 32.5 g/dL 32-36 [facility] No Panel InformationOrdered By: Prosper Ngo on 09-21-2023 Estimated GFR (MDRD) Amer 89 mL/min >60 [facility] Comment on above: GFR Calc Estimated GFR (MDRD) Non-Af Amer 74 mL/min >60 [facility] Comment on above: Non- GFR Calc Prostate Specific Antigen Screen 1.86 ng/mL 0.00-4.00 [facility] Comment on above: This test was perfor med using the TPSA assay method for the[employer] chemistry system. Values obtained with differentassay methods cannot be used interchangably.When changing PSA assays in the course of monitoring apatient, additional sequential testing should be carriedout to confirm baseline values. Thyroid Stimulating Hormone (TSH) 1.01 uIU/mL 0.358-3.74 [facility] Vitamin D 25-Hydroxy 33.1 ng/mL [facility] Comment on above: Vitamin D 25(OH) Sta tus Range Deficiency <20 ng/mL (50nmol/L) Insufficiency 20 - 30 ng/mL (50 - 75 nmol/L) Sufficiency 30 - 100 ng/mL (75 - 250 nmol/L) Toxicity >100 ng/mL (>250 nmol/L) Platelets bldOrdered By: Joselin Ngo on 09-21-2023 Platelets (Bld) [#/Vol] 237 10*3/uL 150-450 [facility] Serum or plasma albumin zandra urement (mass/volume)Ordered By: Prosper Ngo on 09-21-2023 Albumin [Mass/Vol] 3.7 g/dL 3.2-5.0 [facility] Serum or plasma albumin/glob ulin mass ratioOrdered By: Prosper Ngo on 09-21-2023 Albumin/Globulin [Mass ratio] 0.9 {ratio} 0.9-2.4 [facility] Serum or plasma calcium zandra urement (mass/volume)Ordered By: Prosper Ngo on 09-21-2023 Calcium [Mass/Vol] 9.1 mg/dL 8.5-10.1 [facility] Serum or plasma cholesterol in HDL measurement (mass/volume)Ordered By: Prosper Ngo on 09-21-2023 Cholesterol in HDL [Mass/Vol] 66 mg/dL >40 [facility] Comment on above: The drugs N-Acetylcy steine and Metamizole may falsely depress this assay. Reference Range HDL <40 mg/dL Low HDL Cholesterol HDL >or= 60 mg/dL High HDL Cholesterol Serum or plasma cholesterol in VLDL measurement (mass/volume)Ordered By: Prosper Ngo on 09-21-2023 Cholesterol in VLDL [Mass/Vol] 28 mg/dL 5-40 [facility] Serum or plasma creatinine m easurement (mass/volume)Ordered By: Prosper Ngo on 09-21-2023 Creatinine [Mass/Vol] 1.06 mg/dL 0.70-1.30 [facility] Comment on above: The validity of the calculated GFR & GFRAA in patients over 70 years has not been determined. Clinical correlation is essential. Serum or plasma low density lipoprotein (LDL) cholesterol measurement (mass/volume)Ordered By: Prosper Ngo on 09-21-2023 Cholesterol in LDL [Mass/Vol] 128 mg/dL 0-130 [facility] Serum or plasma urea nitroge n measurement (mass/volume)Ordered By: Prosper Ngo on 09-21-2023 Urea nitrogen [Mass/Vol] 14 mg/dL 7-18 [facility] Thin prep Papanicolaou smear with manual screeningOrdered By: Prosper Ngo on 09-21-2023 Thin prep Papanicolaou smear with manual screening 20 U/L 15-37 [facility] Thin prep Papanicolaou smear with manual screening 7 5-15 [facility] - CoagulationOrde red By: Kristi Arroyo on 09-15-2023 INR Coag (Bld) [Relative time] 2.0 {INR} [facility] Comment on above: Critical Value > 4.0 Whole blood prothrombin time Ordered By: Kristi Arroyo on 09-15-2023 PT Coag (Bld) [Time] 21.6 s 11.7-14.9 [facility] - CoagulationOrde red By: Kristi Arroyo on 08-15-2023 INR Coag (Bld) [Relative time] 2.1 {INR} [facility] Comment on above: Critical Value > 4.0 Whole blood prothrombin time Ordered By: Kristi Arroyo on 08-15-2023 PT Coag (Bld) [Time] 23.2 s 11.7-14.9 [facility] - CoagulationOrde red By: Kristi Arroyo on 07-25-2023 INR Coag (Bld) [Relative time] 3.2 {INR} [facility] Comment on above: Critical Value > 4.0 Whole blood prothrombin time Ordered By: Kristi Arroyo on 07-25-2023 PT Coag (Bld) [Time] 34.1 s 11.7-14.9 [facility] - CoagulationOrde red By: Kristi Arroyo on 07-11-2023 PT Coag (PPP) [Time] 36.5 s 11.7-14.9 [facility] INR in Blood by Coagulation assayOrdered By: Kristi Arroyo on 2023 INR Coag (Bld) [Relative time] 1.3 {INR} [facility] - CoagulationOrde red By: Kristi Arroyo on 2023 PT Coag (PPP) [Time] 16.6 s 11.7-14.9 [facility] Basophil percentageOrdered B y: Kwame Encinas on 04-06-2023 Bilirubin [Mass/Vol] 0.50 mg/dL 0.20-1.00 [facility] Comment on above: For patients on eltr ombopag therapy, use of Dimension [place] TBIL is not recommended. Chloride [Moles/Vol] 110 mmol/L 98-107 [facility] Glucose [Mass/Vol] 104 mg/dL 74-106 [facility] Comment on above: Fasting Glucose resu lt from 100 to 125 mg/dL suggests IMPAIRED HOMEOSTASIS per A.D.A. criteria. Potassium [Moles/Vol] 3.8 mmol/L 3.5-5.1 [facility] Protein [Mass/Vol] 7.5 g/dL 6.4-8.2 [facility] Sodium [Moles/Vol] 140 mmol/L 136-145 [facility] WBC (Bld) [#/Vol] 9.5 10*3/uL 4.4-11.0 [facility] Blood erythrocytes count (nu mber/volume)Ordered By: [facility] on 04-06-2023 RBC (Bld) [#/Vol] 4.47 10*6/uL 4.6-6.2 [facility] Blood hemoglobin measurement (mass/volume)Ordered By: [facility] on 04-06-2023 Hemoglobin (Bld) [Mass/Vol] 14.3 g/dL 13.0-16.5 [facility] Blood platelet mean volumeOr dered By: [facility] on 04-06-2023 Platelet mean volume (Bld) [Entitic vol] 9.3 fL 6.2-12.0 [facility] Determination of erythrocyte mean corpuscular volume (MCV)Ordered By: [facility] on 04-06-2023 MCV (RBC) [Entitic vol] 95.5 fL 80-94 [facility] Hematocrit Auto (Bld) [Volum e fraction]Ordered By: [facility] on 04-06-2023 Hematocrit (Bld) [Volume fraction] 42.7 % 40-54 [facility] - Chemistry and C hemistry - challengeOrdered By: [facility] on 04-06-2023 ALP [Catalytic activity/Vol] 58 U/L 45-117 [facility] ALT [Catalytic activity/Vol] 22 U/L 16-61 [facility] CO2 [Moles/Vol] 25.0 mmol/L 21.0-32.0 [facility] Globulin (S) [Mass/Vol] 4.2 g/dL 2.2-4.2 [facility] Urea nitrogen/Creatinine [Mass ratio] 11.9 mg/mg 10-20 [facility] - Hematology and Cell countsOrdered By: Kwame Encinas on 04-06-2023 Erythrocyte distribution width (RBC) [Entitic vol] 47.4 fL 35.1-43.9 [facility] Erythrocyte distribution width (RBC) [Ratio] 13.3 % 11.6-14.6 [facility] MCH (RBC) [Entitic mass] 32.0 pg 27.0-32.0 [facility] MCHC Auto (RBC) [Mass/Vol]Or dered By: Kwame Encinas on 04-06-2023 MCHC (RBC) [Mass/Vol] 33.5 g/dL 32-36 [facility] No Panel InformationOrdered By: Kwame Encinas on 04-06-2023 Estimated Creatinine Clearance Calc 79.35 ml/min [facility] Estimated GFR (MDRD) Amer 105 mL/min >60 [facility] Comment on above: GFR Calc Estimated GFR (MDRD) Non-Af Amer 87 mL/min >60 [facility] Comment on above: Non- GFR Calc Platelets bldOrdered By: Sheldon Encinas on 04-06-2023 Platelets (Bld) [#/Vol] 199 10*3/uL 150-450 [facility] Serum or plasma albumin zandra urement (mass/volume)Ordered By: Kwame Encinas on 04-06-2023 Albumin [Mass/Vol] 3.3 g/dL 3.2-5.0 [facility] Serum or plasma albumin/glob ulin mass ratioOrdered By: Kwame Encinas on 04-06-2023 Albumin/Globulin [Mass ratio] 0.8 {ratio} 0.9-2.4 [facility] Serum or plasma calcium zandra urement (mass/volume)Ordered By: Kwame Encinas on 04-06-2023 Calcium [Mass/Vol] 8.2 mg/dL 8.5-10.1 [facility] Serum or plasma creatinine m easurement (mass/volume)Ordered By: Kwame Encinas on 04-06-2023 Creatinine [Mass/Vol] 0.92 mg/dL 0.70-1.30 [facility] Comment on above: The validity of the calculated GFR & GFRAA in patients over 70 years has not been determined. Clinical correlation is essential. Serum or plasma urea nitroge n measurement (mass/volume)Ordered By: Kwame Encinas on 04-06-2023 Urea nitrogen [Mass/Vol] 11 mg/dL 7-18 [facility] Thin prep Papanicolaou smear with manual screeningOrdered By: Kwame Encinas on 04-06-2023 Thin prep Papanicolaou smear with manual screening 18 U/L 15-37 [facility] Thin prep Papanicolaou smear with manual screening 5 5-15 [facility] No Panel InformationOrdered By: Isauro Ulloa on 04-05-2023 Activated Clotting Time 239 sec 74-137 [facility] Absolute lymphocyte countOrd ered By: Dixie Haynes on 03-28-2023 Lymphocytes Auto (Unsp spec) [#/Vol] 1.27 10*3/uL 0.83-4.51 [facility] Basophil percentageOrdered B y: Dixie Haynes on 03-28-2023 Basophils/100 WBC (Bld) 1.0 % 0-1 [facility] Eosinophils/100 WBC (Bld) 3.5 % 0-5 [facility] Neutrophils (Bld) [#/Vol] 4.1 10*3/uL 2.0-7.7 [facility] Neutrophils/100 WBC (Bld) 68.1 % 47-70 [facility] Blood lymphocytes/100 leukoc ytesOrdered By: Dixie Haynes on 03-28-2023 Lymphocytes/100 WBC (Bld) 21.1 % 19-41 [facility] Blood monocytes/100 leukocyt esOrdered By: Dixie Haynes on 03-28-2023 Monocytes/100 WBC (Bld) 5.6 % 0-10 [facility] - Hematology and Cell countsOrdered By: Dixie Haynes on 03-28-2023 Immature granulocytes/100 WBC (Bld) 0.700 % 0.0-0.9 [facility] Comment on above: IG% - Immature Granu locytes (promyelocytes, myelocytes and metamyelocytes) > 1% indicates that a LEFT SHIFT is Present. Nucleated RBC/100 WBC (Bld) [Ratio] 0 % 0-5 [facility] Absolute lymphocyte countOrd ered By: Dixie Haynes on 02-16-2023 Lymphocytes Auto (Unsp spec) [#/Vol] 1.38 10*3/uL 0.83-4.51 [facility] Basophil percentageOrdered B y: Dixie Haynes on 02-16-2023 Basophils/100 WBC (Bld) 1.0 % 0-1 [facility] Chloride [Moles/Vol] 109 mmol/L 98-107 [facility] Eosinophils/100 WBC (Bld) 2.3 % 0-5 [facility] Glucose [Mass/Vol] 105 mg/dL 74-106 [facility] Comment on above: Fasting Glucose resu lt from 100 to 125 mg/dL suggests IMPAIRED HOMEOSTASIS per A.D.A. criteria. Neutrophils (Bld) [#/Vol] 4.9 10*3/uL 2.0-7.7 [facility] Neutrophils/100 WBC (Bld) 69.7 % 47-70 [facility] Potassium [Moles/Vol] 4.1 mmol/L 3.5-5.1 [facility] Sodium [Moles/Vol] 139 mmol/L 136-145 [facility] WBC (Bld) [#/Vol] 7.0 10*3/uL 4.4-11.0 [facility] Blood erythrocytes count (nu mber/volume)Ordered By: Dixie Haynes on 02-16-2023 RBC (Bld) [#/Vol] 4.19 10*6/uL 4.6-6.2 [facility] Blood hemoglobin measurement (mass/volume)Ordered By: Dixie Haynes on 02-16-2023 Hemoglobin (Bld) [Mass/Vol] 13.4 g/dL 13.0-16.5 [facility] Blood lymphocytes/100 leukoc ytesOrdered By: Dixie Haynes on 02-16-2023 Lymphocytes/100 WBC (Bld) 19.7 % 19-41 [facility] Blood monocytes/100 leukocyt esOrdered By: Dixie Haynes on 02-16-2023 Monocytes/100 WBC (Bld) 6.6 % 0-10 [facility] Blood platelet mean volumeOr dered By: Dixie Haynes on 02-16-2023 Platelet mean volume (Bld) [Entitic vol] 9.5 fL 6.2-12.0 [facility] Determination of erythrocyte mean corpuscular volume (MCV)Ordered By: Dixie Haynes on 02-16-2023 MCV (RBC) [Entitic vol] 96.7 fL 80-94 [facility] Hematocrit Auto (Bld) [Volum e fraction]Ordered By: Dixie Haynes on 02-16-2023 Hematocrit (Bld) [Volume fraction] 40.5 % 40-54 [facility] - Chemistry and C hemistry - challengeOrdered By: Dixie Haynes on 02-16-2023 CO2 [Moles/Vol] 24.0 mmol/L 21.0-32.0 [facility] Natriuretic peptide B (Bld) [Mass/Vol] 51.2 pg/mL 0-100 [facility] Urea nitrogen/Creatinine [Mass ratio] 15.0 mg/mg 10-20 [facility] - Hematology and Cell countsOrdered By: Dixie Haynes on 02-16-2023 Erythrocyte distribution width (RBC) [Entitic vol] 48.2 fL 35.1-43.9 [facility] Erythrocyte distribution width (RBC) [Ratio] 13.6 % 11.6-14.6 [facility] Immature granulocytes/100 WBC (Bld) 0.700 % 0.0-0.9 [facility] Comment on above: IG% - Immature Granu locytes (promyelocytes, myelocytes and metamyelocytes) > 1% indicates that a LEFT SHIFT is Present. MCH (RBC) [Entitic mass] 32.0 pg 27.0-32.0 [facility] Nucleated RBC/100 WBC (Bld) [Ratio] 0 % 0-5 [facility] MCHC Auto (RBC) [Mass/Vol]Or dered By: Dixie Haynes on 02-16-2023 MCHC (RBC) [Mass/Vol] 33.1 g/dL 32-36 [facility] No Panel InformationOrdered By: Dixie Haynes on 02-16-2023 Estimated GFR (MDRD) Amer 96 mL/min >60 [facility] Comment on above: GFR Calc Estimated GFR (MDRD) Non-Af Amer 79 mL/min >60 [facility] Comment on above: Non- GFR Calc Platelets bldOrdered By: Matthieu Haynes on 02-16-2023 Platelets (Bld) [#/Vol] 228 10*3/uL 150-450 [facility] Serum or plasma calcium zandra urement (mass/volume)Ordered By: Dixie Haynes on 02-16-2023 Calcium [Mass/Vol] 8.9 mg/dL 8.5-10.1 [facility] Serum or plasma creatinine m easurement (mass/volume)Ordered By: Dixie Haynes on 02-16-2023 Creatinine [Mass/Vol] 1.00 mg/dL 0.70-1.30 [facility] Comment on above: The validity of the calculated GFR & GFRAA in patients over 70 years has not been determined. Clinical correlation is essential. Serum or plasma urea nitroge n measurement (mass/volume)Ordered By: Dixie Haynes on 02-16-2023 Urea nitrogen [Mass/Vol] 15 mg/dL 7-18 [facility] Thin prep Papanicolaou smear with manual screeningOrdered By: Dixie Haynes on 02-16-2023 Thin prep Papanicolaou smear with manual screening 6 5-15 [facility] Basophil percentageOrdered B y: Dixie Haynes on 11-08-2022 Bilirubin [Mass/Vol] 0.40 mg/dL 0.20-1.00 [facility] Comment on above: For patients on eltr ombopag therapy, use of Dimension [place] TBIL is not recommended. Chloride [Moles/Vol] 108 mmol/L 98-107 [facility] Glucose [Mass/Vol] 87 mg/dL 74-106 [facility] Potassium [Moles/Vol] 4.0 mmol/L 3.5-5.1 [facility] Protein [Mass/Vol] 7.6 g/dL 6.4-8.2 [facility] Sodium [Moles/Vol] 139 mmol/L 136-145 [facility] Laboratory - Chemistry and C hemistry - challengeOrdered By: Dixie Haynes on 11-08-2022 ALP [Catalytic activity/Vol] 55 U/L 45-117 [facility] ALT [Catalytic activity/Vol] 20 U/L 16-61 [facility] CO2 [Moles/Vol] 25.0 mmol/L 21.0-32.0 [facility] Globulin (S) [Mass/Vol] 4.0 g/dL 2.2-4.2 [facility] Urea nitrogen/Creatinine [Mass ratio] 15.2 mg/mg 10-20 [facility] No Panel InformationOrdered By: Dixie Haynes on 11-08-2022 Estimated GFR (MDRD) Amer 84 mL/min >60 [facility] Comment on above: GFR Calc Estimated GFR (MDRD) Non-Af Amer 69 mL/min >60 [facility] Comment on above: Non- GFR Calc Thyroid Stimulating Hormone (TSH) 0.74 uIU/mL 0.358-3.74 [facility] Serum or plasma albumin zandra urement (mass/volume)Ordered By: Dixie Haynes on 11-08-2022 Albumin [Mass/Vol] 3.6 g/dL 3.2-5.0 [facility] Serum or plasma albumin/glob ulin mass ratioOrdered By: Dixie Haynes on 11-08-2022 Albumin/Globulin [Mass ratio] 0.9 {ratio} 0.9-2.4 [facility] Serum or plasma calcium zandra urement (mass/volume)Ordered By: Dixie Haynes on 11-08-2022 Calcium [Mass/Vol] 9.1 mg/dL 8.5-10.1 [facility] Serum or plasma creatinine m easurement (mass/volume)Ordered By: Dixie Haynes on 11-08-2022 Creatinine [Mass/Vol] 1.12 mg/dL 0.70-1.30 [facility] Comment on above: The validity of the calculated GFR & GFRAA in patients over 70 years has not been determined. Clinical correlation is essential. Serum or plasma urea nitroge n measurement (mass/volume)Ordered By: Dixie Haynes on 11-08-2022 Urea nitrogen [Mass/Vol] 17 mg/dL 7-18 [facility] Thin prep Papanicolaou smear with manual screeningOrdered By: Dixie Haynes on 11-08-2022 Thin prep Papanicolaou smear with manual screening 13 U/L 15-37 [facility] Thin prep Papanicolaou smear with manual screening 6 5-15 [facility] Basophil percentageOrdered B y: Dr. Ulloa on 07-14-2022 Chloride [Moles/Vol] 106 mmol/L 98-107 [facility] Glucose [Mass/Vol] 90 mg/dL 74-106 [facility] Potassium [Moles/Vol] 4.2 mmol/L 3.5-5.1 [facility] Sodium [Moles/Vol] 138 mmol/L 136-145 [facility] Laboratory - Chemistry and C hemistry - challengeOrdered By: Dr. Ulloa on 07-14-2022 CO2 [Moles/Vol] 27.0 mmol/L 21.0-32.0 [facility] Urea nitrogen/Creatinine [Mass ratio] 14.0 mg/mg 07-15 [facility] No Panel InformationOrdered By: Dr. Ulloa on 07-14-2022 Estimated GFR (MDRD) Amer 77 mL/min >60 [facility] Comment on above: GFR Calc Estimated GFR (MDRD) Non-Af Amer 63 mL/min >60 [facility] Comment on above: Non- GFR Calc Serum or plasma calcium zandra urement (mass/volume)Ordered By: Dr. Ulloa on 07-14-2022 Calcium [Mass/Vol] 9.2 mg/dL 8.5-10.1 [facility] Serum or plasma creatinine m easurement (mass/volume)Ordered By: Dr. Ulloa on 07-14-2022 Creatinine [Mass/Vol] 1.21 mg/dL 0.70-1.30 [facility] Comment on above: The validity of the calculated GFR & GFRAA in patients over 70 years has not been determined. Clinical correlation is essential. Serum or plasma urea nitroge n measurement (mass/volume)Ordered By: Dr. Ulloa on 07-14-2022 Urea nitrogen [Mass/Vol] 17 mg/dL 7-18 [facility] Thin prep Papanicolaou smear with manual screeningOrdered By: Dr. Ulloa on 07-14-2022 Thin prep Papanicolaou smear with manual screening 5 5-15 [facility] No Panel Informationon 06-22 Prostate Specific Antigen Screen 1.89 ng/mL 0.00-4.00 [facility] Work Phone: Comment on above: This test was perfor med using the TPSA assay method for theDimension chemistry system. Values obtained with differentassay methods cannot be used interchangably.When changing PSA assays in the course of monitoring apatient, additional sequential testing should be carriedout to confirm baseline values. Basophil percentageon 2021 Chloride [Moles/Vol] 105 mmol/L 98-107 [facility] Work Phone: Glucose [Mass/Vol] 108 mg/dL 74-106 [facility] Work Phone: Comment on above: Fasting Glucose resu lt from 100 to 125 mg/dL suggests IMPAIRED HOMEOSTASIS per A.D.A. criteria. Potassium [Moles/Vol] 4.6 mmol/L 3.5-5.1 [facility] Work Phone: Sodium [Moles/Vol] 138 mmol/L 136-145 [facility] Work Phone: Laboratory - Chemistry and C hemistry - challengeon 06-09-2022 CO2 [Moles/Vol] 27.0 mmol/L 21.0-32.0 [facility] Work Phone: Urea nitrogen/Creatinine [Mass ratio] 16.0 mg/mg 10-20 [facility] Work Phone: No Panel Informationon 06-09 Estimated GFR (MDRD) Amer 74 mL/min >60 [facility] Work Phone: Comment on above: GFR Calc Estimated GFR (MDRD) Non-Af Amer 61 mL/min >60 [facility] Work Phone: Comment on above: Non- GFR Calc Serum or plasma calcium zandra urement (mass/volume)on 06-09-2022 Calcium [Mass/Vol] 9.0 mg/dL 8.5-10.1 [facility] Work Phone: Serum or plasma creatinine m easurement (mass/volume)on 06-09-2022 Creatinine [Mass/Vol] 1.25 mg/dL 0.70-1.30 [facility] Work Phone: Comment on above: The validity of the calculated GFR & GFRAA in patients over 70 years has not been determined. Clinical correlation is essential. Serum or plasma urea nitroge n measurement (mass/volume)on 06-09-2022 Urea nitrogen [Mass/Vol] 20 mg/dL 7-18 [facility] Work Phone: Thin prep Papanicolaou smear with manual screeningon 06-09-2022 Thin prep Papanicolaou smear with manual screening 6 5-15 [facility] Work Phone: Basophil percentageon 2021 Cholesterol [Mass/Vol] 161 mg/dL <200 [facility] Work Phone: Comment on above: <200 mg/dL Desirable 200-240 mg/dL Borderline >240 mg/dL High Risk Triglyceride [Mass/Vol] 74 mg/dL <199 [facility] Work Phone: Comment on above: The drugs N-Acetylcy steine and Metamizole may falsely depress this assay.Serum Triglycerides Reference Interval Normal <150 mg/dL Borderline high 150 - 199 mg/dL High 200 - 499 mg/dL Very High > or = 500 mg/dL Serum or plasma cholesterol in HDL measurement (mass/volume)on 05-11-2022 Cholesterol in HDL [Mass/Vol] 55 mg/dL >40 [facility] Work Phone: Comment on above: The drugs N-Acetylcy steine and Metamizole may falsely depress this assay. Reference Range HDL <40 mg/dL Low HDL Cholesterol HDL >or= 60 mg/dL High HDL Cholesterol Serum or plasma cholesterol in VLDL measurement (mass/volume)on 05-11-2022 Cholesterol in VLDL [Mass/Vol] 15 mg/dL 5-40 [facility] Work Phone: Serum or plasma low density lipoprotein (LDL) cholesterol measurement (mass/volume)on 05-11-2022 Cholesterol in LDL [Mass/Vol] 91 mg/dL 0-130 [facility] Work Phone: Absolute lymphocyte counton 05-10-2022 Lymphocytes Auto (Unsp spec) [#/Vol] 0.94 10*3/uL 0.83-4.51 [facility] Work Phone: Basophil percentageon 2021 Basophils/100 WBC (Bld) 0.4 % 0-1 [facility] Work Phone: Chloride [Moles/Vol] 110 mmol/L 98-107 [facility] Work Phone: [phone] Eosinophils/100 WBC (Bld) 1.2 % 0-5 [facility] Work Phone: [phone] Glucose [Mass/Vol] 117 mg/dL 74-106 [facility] Work Phone: [phone] Comment on above: Fasting Glucose resu lt from 100 to 125 mg/dL suggests IMPAIRED HOMEOSTASIS per A.D.A. criteria. Neutrophils (Bld) [#/Vol] 5.3 10*3/uL 2.0-7.7 [facility] Work Phone: [phone] Neutrophils/100 WBC (Bld) 76.1 % 47-70 [facility] Work Phone: [phone] Potassium [Moles/Vol] 4.0 mmol/L 3.5-5.1 [facility] Work Phone: [phone] Sodium [Moles/Vol] 140 mmol/L 136-145 [facility] Work Phone: [phone] WBC (Bld) [#/Vol] 6.9 10*3/uL 4.4-11.0 [facility] Work Phone: Blood erythrocytes count (nu mber/volume)on 05-10-2022 RBC (Bld) [#/Vol] 4.43 10*6/uL 4.6-6.2 [facility] Work Phone: [phone] Blood hemoglobin measurement (mass/volume)on 05-10-2022 Hemoglobin (Bld) [Mass/Vol] 14.0 g/dL 13.0-16.5 [facility] Work Phone: Blood lymphocytes/100 leukoc yteson 05-10-2022 Lymphocytes/100 WBC (Bld) 13.6 % 19-41 [facility] Work Phone: [phone] Blood monocytes/100 leukocyt eson 05-10-2022 Monocytes/100 WBC (Bld) 8.3 % 0-10 [facility] Work Phone: Blood platelet mean volumeon 05-10-2022 Platelet mean volume (Bld) [Entitic vol] 10.2 fL 6.2-12.0 [facility] Work Phone: Determination of erythrocyte mean corpuscular volume (MCV)on 05-10-2022 MCV (RBC) [Entitic vol] 96.4 fL 80-94 [facility] Work Phone: Hematocrit Auto (Bld) [Volum e fraction]on 05-10-2022 Hematocrit (Bld) [Volume fraction] 42.7 % 40-54 [facility] Work Phone: Laboratory - Chemistry and C hemistry - challengeon 05-10-2022 CO2 [Moles/Vol] 24.0 mmol/L 21.0-32.0 [facility] Work Phone: Natriuretic peptide B (Bld) [Mass/Vol] 305.5 pg/mL 0-100 [facility] Work Phone: Urea nitrogen/Creatinine [Mass ratio] 12.3 mg/mg 10-20 [facility] Work Phone: Laboratory - Hematology and Cell countson 05-10-2022 Erythrocyte distribution width (RBC) [Entitic vol] 47.6 fL 35.1-43.9 [facility] Work Phone: Erythrocyte distribution width (RBC) [Ratio] 13.4 % 11.6-14.6 [facility] Work Phone: Immature granulocytes/100 WBC (Bld) 0.400 % 0.0-0.9 [facility] Work Phone: Comment on above: IG% - Immature Granu locytes (promyelocytes, myelocytes and metamyelocytes) > 1% indicates that a LEFT SHIFT is Present. MCH (RBC) [Entitic mass] 31.6 pg 27.0-32.0 [facility] Work Phone: Nucleated RBC/100 WBC (Bld) [Ratio] 0 % 0-5 [facility] Work Phone: MCHC Auto (RBC) [Mass/Vol]on 05-10-2022 MCHC (RBC) [Mass/Vol] 32.8 g/dL 32-36 [facility] Work Phone: No Panel Informationon 05-10 Troponin I High Sensitivity 15 pg/mL 3.0-78.0 [facility] Work Phone: Comment on above: Please Note: [place] t Units and Gender Specific Reference Ranges. For more information see Policy Stat Procedure [place] High Sensitivity Troponin (TNIH) and attachments. Estimated Creatinine Clearance Calc 77.90 ml/min [facility] Work Phone: Estimated GFR (MDRD) Amer 98 mL/min >60 [facility] Work Phone: Comment on above: GFR Calc Estimated GFR (MDRD) Non-Af Amer 81 mL/min >60 [facility] Work Phone: Comment on above: Non- GFR Calc Troponin I High Sensitivity 13 pg/mL 3.0-78.0 [facility] Work Phone: Comment on above: Please Note: [place] t Units and Gender Specific Reference Ranges. For more information see Policy Stat Procedure [place] High Sensitivity Troponin (TNIH) and attachments. Platelets bldon 05-10-2022 Platelets (Bld) [#/Vol] 213 10*3/uL 150-450 [facility] Work Phone: Serum or plasma calcium zandra urement (mass/volume)on 05-10-2022 Calcium [Mass/Vol] 8.8 mg/dL 8.5-10.1 [facility] Work Phone: Serum or plasma creatinine m easurement (mass/volume)on 05-10-2022 Creatinine [Mass/Vol] 0.98 mg/dL 0.70-1.30 [facility] Work Phone: Comment on above: The validity of the calculated GFR & GFRAA in patients over 70 years has not been determined. Clinical correlation is essential. Serum or plasma urea nitroge n measurement (mass/volume)on 05-10-2022 Urea nitrogen [Mass/Vol] 12 mg/dL 04-12 [facility] Work Phone: Thin prep Papanicolaou smear with manual screeningon 05-10-2022 Thin prep Papanicolaou smear with manual screening 02-07 [facility] Work Phone: Vital Signs Date Time Vital Sign Value Performing Clinician Facility 03-25-2025 10:36-0400 Diastolic blood pressure 80 mm[Hg] Cuauhtemoc Nevarez MD Work Phone: [facility] 03-25-2025 10:36-0400 Heart rate 58 /min Cuauhtemoc Nevarez MD Work Phone: [facility] 03-25-2025 10:36-0400 SaO2% (BldA) [Mass fraction] 95 % Cuauhtemoc Nevarez MD Work Phone: [facility] 03-25-2025 10:36-0400 Systolic blood pressure 127 mm[Hg] Cuauhtemoc Nevarez MD Work Phone: [facility] 01-03-2025 11:18-0400 Body height 177.[address] Prosper Ngo MD Work Phone: [facility] 01-03-2025 11:18-0400 Body mass index (BMI) [Ratio] 25.9 kg/m2 Dr. Prosper Ngo MD Work Phone: [facility] 01-03-2025 11:18-0400 Body weight 82.[address] Prosper Ngo MD Work Phone: [facility] 01-03-2025 11:18-0400 Diastolic blood pressure 76 mm[Hg] Dr. Prosper Ngo MD Work Phone: [facility] 01-03-2025 11:18-0400 Heart rate 57 /min Dr. Prosper Ngo MD Work Phone: [facility] 01-03-2025 11:18-0400 Respiratory rate 18 /min Dr. Prosper Ngo MD Work Phone: [facility] 01-03-2025 11:18-0400 SaO2% (BldA) [Mass fraction] 94 % Dr. Prosper Ngo MD Work Phone: [facility] 01-03-2025 11:18-0400 Systolic blood pressure 119 mm[Hg] Dr. Prosper Ngo MD Work Phone: [facility] 10-29-2024 11:22-0500 Body height 177.[address] Prosper Ngo MD Work Phone: [facility] 10-29-2024 11:22-0500 Body mass index (BMI) [Ratio] 24.5 kg/m2 Dr. Prosper Ngo MD Work Phone: [facility] 10-29-2024 11:22-0500 Body temperature 98.4 [degF] Dr. Prosper Ngo MD Work Phone: [facility] 10-29-2024 11:22-0500 Body weight 77.[address] Prosper Ngo MD Work Phone: [facility] 10-29-2024 11:22-0500 Diastolic blood pressure 74 mm[Hg] Dr. Prosper Ngo MD Work Phone: [facility] 10-29-2024 11:22-0500 Heart rate 62 /min Dr. Prosper Ngo MD Work Phone: [facility] 10-29-2024 11:22-0500 Respiratory rate 16 /min Dr. Prosper Ngo MD Work Phone: [facility] 10-29-2024 11:22-0500 SaO2% (BldA) [Mass fraction] 98 % Dr. Prosper Ngo MD Work Phone: [facility] 10-29-2024 11:22-0500 Systolic blood pressure 158 mm[Hg] Dr. Prosper Ngo MD Work Phone: [facility] 01-05-2024 08:40-0400 Body height 179.[address] Prosper Ngo Work Phone: [facility] 01-05-2024 08:40-0400 Body mass index (BMI) [Ratio] 28 kg/m2 Dr. Prosper Ngo Work Phone: [facility] 01-05-2024 08:40-0400 Body weight 89.[address] Prosper Ngo Work Phone: [facility] 01-05-2024 08:40-0400 Diastolic blood pressure 81 mm[Hg] Dr. Prosper Ngo Work Phone: [facility] 01-05-2024 08:40-0400 Heart rate 62 /min Dr. Prosper Ngo Work Phone: [facility] 01-05-2024 08:40-0400 Respiratory rate 16 /min Dr. Prosper Ngo Work Phone: [facility] 01-05-2024 08:40-0400 Systolic blood pressure 128 mm[Hg] Dr. Prosper Ngo Work Phone: [facility] 09-08-2023 10:45-0500 Body height 179.[address] Prosper Nog Work Phone: [facility] 09-08-2023 10:45-0500 Body mass index (BMI) [Ratio] 28.4 kg/m2 Dr. Prosper Ngo Work Phone: [facility] 09-08-2023 10:45-0500 Body temperature 98.6 [degF] Dr. Prosper Ngo Work Phone: [facility] 09-08-2023 10:45-0500 Body weight 91.[address] Prosper Ngo Work Phone: [facility] 09-08-2023 10:45-0500 Diastolic blood pressure 80 mm[Hg] Dr. Prosper Ngo Work Phone: [facility] 09-08-2023 10:45-0500 Heart rate 64 /min Dr. Prosper Ngo Work Phone: [facility] 09-08-2023 10:45-0500 SaO2% (BldA) [Mass fraction] 96 % Dr. Prosper Ngo Work Phone: [facility] 09-08-2023 10:45-0500 Systolic blood pressure 159 mm[Hg] Dr. Prosper Ngo Work Phone: [facility] 08-15-2023 08:58-0500 Body height 179.[address] Prosper Nog Work Phone: [facility] 08-15-2023 08:58-0500 Body mass index (BMI) [Ratio] 27.8 kg/m2 Dr. Prosper Ngo Work Phone: [facility] 08-15-2023 08:58-0500 Body weight 87.[address] Prosper Ngo Work Phone: [facility] 08-15-2023 08:58-0500 Diastolic blood pressure 79 mm[Hg] Dr. Prosper Ngo Work Phone: [facility] 08-15-2023 08:58-0500 Heart rate 50 /min Dr. Prosper Ngo Work Phone: [facility] 08-15-2023 08:58-0500 Respiratory rate 18 /min Dr. Prosper Ngo Work Phone: [facility] 08-15-2023 08:58-0500 SaO2% (BldA) [Mass fraction] 97 % Dr. Prosper Ngo Work Phone: [facility] 08-15-2023 08:58-0500 Systolic blood pressure 137 mm[Hg] Dr. Prosper Ngo Work Phone: [facility] 04-21-2023 13:03-0400 Body height 179.[address] Prosper Ngo Work Phone: [facility] 04-21-2023 13:03-0400 Body mass index (BMI) [Ratio] 29.1 kg/m2 Dr. Prosper Ngo Work Phone: [facility] 04-21-2023 13:03-0400 Body weight 93.[address] Prosper Ngo Work Phone: [facility] 04-21-2023 13:03-0400 Diastolic blood pressure 73 mm[Hg] Dr. Prosper Ngo Work Phone: [facility] 04-21-2023 13:03-0400 Heart rate 72 /min Dr. Prosper Ngo Work Phone: [facility] 04-21-2023 13:03-0400 Respiratory rate 18 /min Dr. Prosper Ngo Work Phone: [facility] 04-21-2023 13:03-0400 SaO2% (BldA) [Mass fraction] 98 % Dr. Prosper Ngo Work Phone: [facility] 04-21-2023 13:03-0400 Systolic blood pressure 125 mm[Hg] Dr. Prosper Ngo Work Phone: [facility] 04-06-2023 11:30-0400 Diastolic blood pressure 90 mm[Hg] Dr. Prosper Ngo Work Phone: [facility] 04-06-2023 11:30-0400 Heart rate 53 /min Dr. Prosepr Ngo Work Phone: [facility] 04-06-2023 11:30-0400 Respiratory rate 16 /min Dr. Prosper Ngo Work Phone: [facility] 04-06-2023 11:30-0400 SaO2% (BldA) [Mass fraction] 96 % Dr. Prosper Ngo Work Phone: [facility] 04-06-2023 11:30-0400 Systolic blood pressure 188 mm[Hg] Dr. Prosper Ngo Work Phone: [facility] 04-06-2023 08:21-0400 Body temperature 96.2 [degF] Dr. Prosper Ngo Work Phone: [facility] 04-06-2023 04:48-0400 Body mass index (BMI) [Ratio] 29.9 kg/m2 Dr. Prosper Ngo Work Phone: [facility] 04-06-2023 04:48-0400 Body weight 96.[address] Prosper Ngo Work Phone: [facility] 04-05-2023 10:04-0400 Body height 179.[address] Prosper Ngo Work Phone: [facility] 02-16-2023 09:02-0400 Body height 177.[address] Prosper Ngo Work Phone: [facility] 02-16-2023 09:02-0400 Body mass index (BMI) [Ratio] 31.5 kg/m2 Dr. Prosper Ngo Work Phone: [facility] 02-16-2023 09:02-0400 Body weight 99.[address] Prosper Ngo Work Phone: [facility] 02-16-2023 09:02-0400 Diastolic blood pressure 89 mm[Hg] Dr. Prosper Ngo Work Phone: [facility] 02-16-2023 09:02-0400 Heart rate 50 /min Dr. Prosper Ngo Work Phone: [facility] 02-16-2023 09:02-0400 Respiratory rate 16 /min Dr. Prosper Ngo Work Phone: [facility] 02-16-2023 09:02-0400 Systolic blood pressure 157 mm[Hg] Dr. Prosper Ngo Work Phone: [facility] 11-08-2022 10:01-0500 Body height 177.[address] Prosper Ngo Work Phone: [facility] 11-08-2022 10:01-0500 Body mass index (BMI) [Ratio] 31.2 kg/m2 Dr. Prosper Ngo Work Phone: [facility] 11-08-2022 10:01-0500 Body weight 98.[address] Prosper Ngo Work Phone: [facility] 11-08-2022 10:01-0500 Diastolic blood pressure 99 mm[Hg] Dr. Prosper Ngo Work Phone: [facility] 11-08-2022 10:01-0500 Heart rate 53 /min Dr. Prosper Ngo Work Phone: [facility] 11-08-2022 10:01-0500 Respiratory rate 531 /min Dr. Prosper Ngo Work Phone: [facility] 11-08-2022 10:01-0500 SaO2% (BldA) [Mass fraction] 97 % Dr. Prosper Ngo Work Phone: [facility] 11-08-2022 10:01-0500 Systolic blood pressure 162 mm[Hg] Dr. Prosper Ngo Work Phone: [facility] 08-09-2022 15:53-0500 Body height 177.[address] Prosper Ngo Work Phone: [facility] 07-27-2022 10:30-0400 Body height 177.8 cm MD Bear Montiel Work Phone: [facility] Work Phone: 07-27-2022 10:30-0400 Body mass index (BMI) [Ratio] 30.5 kg/m2 Dr. Prosper Ngo Work Phone: [facility] 07-27-2022 10:30-0400 Body weight 92.07 kg MD Bear Montiel Work Phone: [facility] 07-27-2022 10:30-0400 Body weight 96.[address] Prosper Ngo Work Phone: [facility] 07-27-2022 10:30-0400 Diastolic blood pressure 86 mm[Hg] Dr. Prosper Ngo Work Phone: [facility] 07-27-2022 10:30-0400 Heart rate 58 /min Dr. Prosper Ngo Work Phone: [facility] 07-27-2022 10:30-0400 Respiratory rate 18 /min Dr. Prosper Ngo Work Phone: [facility] 07-27-2022 10:30-0400 SaO2% (BldA) [Mass fraction] 97 % Dr. Prosper Ngo Work Phone: [facility] 07-27-2022 10:30-0400 Systolic blood pressure 139 mm[Hg] Dr. Prosper Ngo Work Phone: [facility] 07-26-2022 08:36-0400 Body mass index (BMI) [Ratio] 29.1 kg/m2 MD Bear Montiel Work Phone: [facility] 06-16-2022 13:54-0400 Body temperature 98 [degF] MD Bear Montiel Work Phone: [facility] Work Phone: 06-16-2022 13:54-0400 Body weight 91.85 kg MD Bear Montiel Work Phone: [facility] Work Phone: 06-16-2022 13:54-0400 Diastolic blood pressure 72 mm[Hg] MD Bear Montiel Work [facility] [facility] Work Phone: 06-16-2022 13:54-0400 Heart rate 53 /min MD Bear Montiel Work Phone: [facility] Work Phone: 06-16-2022 13:54-0400 Respiratory rate 16 /min MD Bear Montiel Work Phone: [facility] Work Phone: 06-16-2022 13:54-0400 SaO2% (BldA) [Mass fraction] 96 % MD Bear Montiel Work Phone: [facility] Work Phone: 06-16-2022 13:54-0400 Systolic blood pressure 116 mm[Hg] MD Bear Montiel Work Phone: [facility] Work Phone: 06-14-2022 11:23-0400 Body height 177.8 cm MD Bear Montiel Work Phone: [facility] Work Phone: 06-14-2022 11:23-0400 Body weight 92.07 kg MD Bear Montiel Work Phone: [facility] Work Phone: 06-11-2022 08:15-0400 Body mass index (BMI) [Ratio] 29.1 kg/m2 MD Bear Montiel Work Phone: [facility] Work Phone: 06-09-2022 11:35-0400 Body mass index (BMI) [Ratio] 29.1 kg/m2 MD Bear Montiel Work Phone: [facility] Work Phone: 06-09-2022 11:35-0400 Body weight 92.07 kg MD Bear Montiel Work Phone: [facility] Work Phone: 06-09-2022 11:35-0400 Diastolic blood pressure 76 mm[Hg] MD Bear Montiel Work Phone: [facility] Work Phone: 06-09-2022 11:35-0400 Heart rate 72 /min MD Bear Montiel Work Phone: [facility] Work Phone: 06-09-2022 11:35-0400 Respiratory rate 16 /min MD Bear Montiel Work Phone: [facility] Work Phone: 06-09-2022 11:35-0400 SaO2% (BldA) [Mass fraction] 96 % MD Bear Montiel Work Phone: [facility] Work Phone: 06-09-2022 11:35-0400 Systolic blood pressure 113 mm[Hg] MD Bear Montiel Work Phone: [facility] Work Phone: 05-11-2022 15:14-0400 Diastolic blood pressure 81 mm[Hg] MD Bear Montiel Work Phone: [facility] Work Phone: 05-11-2022 15:14-0400 Heart rate 65 /min MD Bear Montiel Work Phone: [facility] Work Phone: 05-11-2022 15:14-0400 SaO2% (BldA) [Mass fraction] 95 % MD Bear Montiel Work Phone: [facility] Work Phone: 05-11-2022 15:14-0400 Systolic blood pressure 102 mm[Hg] MD Bear Montiel Work Phone: [facility] Work Phone: 05-11-2022 13:31-0400 Body temperature 97.9 [degF] MD Bear Montiel Work Phone: [facility] Work Phone: 05-11-2022 13:31-0400 Respiratory rate 18 /min MD Bear Montiel Work Phone: [facility] Work Phone: 05-10-2022 12:30-0400 Body mass index (BMI) [Ratio] 29 kg/m2 MD Bear Montiel Work Phone: [facility] Work Phone: 05-10-2022 12:30-0400 Body weight 92 kg MD Bear Montiel Work Phone: [facility] Work Phone: 05-10-2022 12:00-0400 Body temperature 98.2 [degF] [facility] Work Phone: 05-10-2022 12:00-0400 Diastolic blood pressure 112 mm[Hg] [facility] Work Phone: 05-10-2022 12:00-0400 Heart rate 118 /min [facility] Work Phone: 05-10-2022 12:00-0400 Respiratory rate 16 /min [facility] Work Phone: 05-10-2022 12:00-0400 SaO2% (BldA) [Mass fraction] 97 % [facility] Work Phone: 05-10-2022 12:00-0400 Systolic blood pressure 146 mm[Hg] [facility] Work Phone: 05-10-2022 09:34-0400 Body height 180.34 cm [facility] Work Phone: 05-10-2022 09:34-0400 Body mass index (BMI) [Ratio] 26.4 kg/m2 [facility] Work Phone: 05-10-2022 09:34-0400 Body weight 86.18 kg [facility] Work Phone: Encounters Encounter Date Encounter Type Care Provider Facility Start: 03-26-2025 ambulatory Kristi MILLER Facility:[facility] Start: 03-25-2025 End: 03-25-2025 Office outpatient new 45 minutes Cuauhtemoc Nevarez MD Work Phone: [facility] Comment on above: Injury to penis, ini tial encounter (Primary Dx); Peyronie disease; Erectile dysfunction, unspecified erectile dysfunction type; BPH with obstruction/lower urinary tract symptoms; Frequency of urination; Urinary urgency Start: 03-25-2025 End: 03-25-2025 [facility] Start: 03-18-2025 End: 03-18-2025 Discharged Recurring Kristi Arroyo PA -Laboratory Work Phone: Start: 03-18-2025 End: 03-18-[address] Prosper gNo MD Work Phone: -Laboratory Start: 01-31-2025 End: 01-31-2025 Discharged Recurring Kristi Arroyo PA -Laboratory Work Phone: Start: 01-31-2025 End: 01-31-[address] Prosper Ngo MD Work Phone: [facility] Work Phone: Start: 01-17-2025 End: 01-23-2025 ambulatory Prosper Ngo Facility:[facility] Start: 01-17-2025 End: 01-23-2025 Discharged Recurring Kristi Arroyo PA -Laboratory Work Phone: Start: 01-03-2025 End: 01-03-2025 Patient encounter procedure Kristi MILLER -[facility] Work Phone: Start: 01-03-2025 End: 01-03-2025 ambulatory Prosper Ngo Facility:[facility] Start: 12-17-2024 End: 12-17-2024 Discharged Recurring Kristi Arroyo PA -Laboratory Work Phone: Start: 12-17-2024 End: 12-17-[address] Prosper Ngo MD Work Phone: [facility] Work Phone: Start: 11-16-2024 End: 11-23-2024 Discharged Recurring Kristi Arroyo PA -Laboratory Work Phone: Start: 11-16-2024 End: 11-23-2024 ambulatory Kristi MILLER Facility:[facility] Start: 10-29-2024 End: 10-29-[address] Prosper Ngo MD -[facility] Work Phone: Start: 10-29-2024 End: 10-29-2024 ambulatory Prosper Ngo Facility:[facility] Start: 10-18-2024 End: 10-18-2024 Discharged Recurring Kristi Arroyo PA -Laboratory Work Phone: Start: 10-18-2024 End: 10-18-2024 ambulatory Prosper Ngo Facility:[facility] Start: 09-18-2024 End: 09-18-2024 ambulatory Prosperboris Ngo Facility:[facility] Start: 09-18-2024 End: 09-18-2024 Discharged Recurring Kristi Arroyo PA -Laboratory Work Phone: Start: 08-22-2024 End: 08-25-2024 ambulatory Kristi MILLER Facility:[facility] Start: 07-06-2024 End: 07-06-2024 ambulatory Prosper Ngo Facility:[facility] Start: 07-06-2024 End: 07-06-2024 ambulatory Dixie Haynes NP Facility:[facility] Start: 06-27-2024 End: 06-27-2024 ambulatory Kristi MILLER Facility:[facility] Start: 06-19-2024 End: 06-19-2024 ambulatory Kristi MILLER Facility:[facility] Start: 06-08-2024 End: 06-08-2024 ambulatory Prosper Ngo Facility:[facility] Start: 05-21-2024 End: 05-21-2024 ambulatory Prosper Nog Facility:[facility] Start: 05-18-2024 End: 05-18-2024 ambulatory Kristi MILLER Facility:[facility] Start: 04-04-2024 End: 04-25-2024 ambulatory Kristi MILLER Facility:[facility] Start: 01-05-2024 End: 01-05-[address] Prosper Ngo Work Phone: [facility] Work Phone: Start: 01-05-2024 End: 01-24-[address] Prosper Ngo Work Phone: [facility] Work Phone: Start: 01-05-2024 End: 01-24-[address] [facility] Start: 11-14-2023 End: 11-24-[address] Prosper Ngo Work Phone: [facility] Work Phone: Start: 11-14-2023 End: 11-24-[address] [facility] Start: 09-21-2023 End: 09-21-[address] Prosper Ngo Work Phone: [facility] Work Phone: Start: 09-21-2023 End: 09-21-[address] [facility] Start: 09-15-2023 End: 09-25-[address] Prosper Ngo Work Phone: [facility] Work Phone: Start: 09-15-2023 End: 09-25-[address] [facility] Start: 09-08-2023 End: 09-08-[address] Prosper Ngo Work Phone: [facility] Work Phone: Start: 08-15-2023 End: 08-25-[address] Prosper Ngo Work Phone: [facility] Work Phone: Start: 08-15-2023 End: 08-25-[address] [facility] Start: 08-15-2023 End: 08-15-[address] Prosper Ngo Work Phone: [facility] Work Phone: Start: 07-25-2023 End: 07-25-[address] [facility] Start: 2023 End: [address] Prosper Ngo Work Phone: [facility] Work Phone: Start: 2023 End: [address] [facility] Start: 04-21-2023 End: 04-21-[address] Prosper Ngo Work Phone: [facility] Work Phone: Start: 04-06-2023 Non-patient / Non-visit Dr. Alize Ngo Work Phone: [facility] Start: 04-06-2023 End: 04-06-2023 Non-patient / Non-visit Dr. Prosper Ngo Work Phone: [facility] Work Phone: Start: 04-05-2023 End: 04-06-2023 Evaluation and management of inpatient Dr. Prosper Ngo Work Phone: [facility]-Intensive Care Unit Work Phone: Start: 04-05-2023 End: 04-06-[address] Prosper Ngo Work Phone: [facility] Work Phone: Start: 04-05-2023 Non-patient / Non-visit Dr. Alize Ngo Work Phone: [facility] Start: 03-30-2023 Non-patient / Non-visit Dr. Alize Ngo Work Phone: [facility] Start: 03-21-2023 Non-patient / Non-visit Dr. Alize Ngo Work Phone: [facility] Start: 03-21-2023 End: 03-21-[address] [facility] Start: 02-16-2023 End: 02-16-[address] Prosper Ngo Work Phone: [facility] Work Phone: Start: 02-16-2023 End: 02-16-[address] Prosper Ngo Work Phone: [facility] Start: 12-07-2022 Non-patient / Non-visit Dr. Alize Ngo Work Phone: [facility] Start: 12-07-2022 End: 12-07-[address] Prosper Ngo Work Phone: [facility] Work Phone: Start: 12-07-2022 End: 12-07-[address] [facility] Start: 11-08-2022 End: 11-08-[address] Prosper Ngo Work Phone: [facility] Work Phone: Start: 11-08-2022 End: 11-08-[address] Prosper Ngo Work Phone: [facility] Start: 10-11-2022 Non-patient / Non-visit Dr. Alize Ngo Work Phone: [facility] Start: 10-11-2022 End: 10-11-[address] Prosper Ngo Work Phone: [facility] Work Phone: Start: 10-11-2022 End: 10-11-[address] [facility] Start: 08-09-2022 End: 08-09-[address] Prosper Ngo Work Phone: [facility] Start: 08-03-2022 End: 08-03-[address] Prosper Ngo Work Phone: [facility] Start: 07-27-2022 Non-patient / Non-visit MD Bernadette Montiel Work Phone: [facility] Start: 07-27-2022 Non-patient / Non-visit MD Bernadette Montiel Work Phone: [facility] Start: 07-27-2022 End: 07-27-2022 Admission to same day surgery center MD Bear Montiel Work Phone: [facility]-Shop Manager/Special Procedures Start: 07-27-2022 End: 07-27-2022 ambulatory MD Bear Montiel Work Phone: [facility] Work Phone: Start: 07-26-2022 Non-patient / Non-visit MD Bernadette Montiel Work Phone: [facility] Start: 06-30-2022 End: 06-30-2022 Patient encounter procedure MD Bear Montiel Work Phone: [facility] Start: 06-22-2022 End: 06-22-2022 ambulatory MD Bear Montiel Work Phone: [facility] Work Phone: Start: 06-22-2022 End: 06-22-2022 Patient encounter procedure MD Bear Montiel Work Phone: [facility] Start: 06-16-2022 End: 06-16-2022 Patient encounter procedure MD Bear Montiel Work Phone: [facility] Start: 06-14-2022 Non-patient / Non-visit MD Bernadette Montiel Work Phone: [facility] Start: 06-14-2022 End: 06-14-2022 Admission to same day surgery center MD Bear Montiel Work Phone: [facility]-Shop [facility]/Special Procedures Start: 06-14-2022 End: 06-14-2022 ambulatory MD Bear Montiel Work Phone: [facility] Work Phone: Start: 06-09-2022 End: 06-09-2022 ambulatory MD Bear Montiel Work Phone: [facility] Work Phone: Start: 06-09-2022 End: 06-09-2022 Patient encounter procedure MD Bear Montiel Work Phone: [facility]-Laboratory Start: 06-09-2022 End: 06-09-2022 Patient encounter procedure MD Bear Montiel Work Phone: [facility] Start: 05-11-2022 Non-patient / Non-visit MD Bernadette Montiel Work Phone: [facility] Start: 05-10-2022 Non-patient / Non-visit MD Bernadette Montiel Work Phone: [facility] Start: 05-10-2022 Non-patient / Non-visit MD Bernadette Montiel Work Phone: [facility] Start: 05-10-2022 End: 05-11-2022 Evaluation and management of inpatient [facility]Progressive Care Unit Procedures Date Procedure Procedure Detail Performing Clinician Start: 03-25-2025 Urnls dip stick/tabl et rgnt auto w/o microscopy Cuauhtemoc Nevarez MD Work Phone: Start: 03-25-2025 MEASURE POST VOID RESIDUAL Cuauhtemoc Nevarez MD Work Phone: Start: 01-03-2025 Evaluation of diagno stic study results Dr. Prosper Ngo MD Work Phone: Start: 03-28-2023 Plain chest X-ray Dr. Yamilet Ngo Work Phone: Start: 03-21-2023 Radionuclide imaging of perfusion of myocardium under exercise stress Dr. Prosper Ngo Work Phone: Start: 05-10-2022 Plain chest X-ray History of placement of stent for coronary artery disease Status post coronary artery stent placement Dr. Prosper Ngo Work Phone: Comment on above: 95% bifurcational le yosvany involving distal circumflex arteryWith predilatation using 2.5 x 15 mm balloonFollowed by placement of drug-eluting stent 3 x 34 mm resolute Fred overlap at the midportion of the left circumflex with 3.5 x 15 mm and postdilated with the same balloon at the overlapping stent 04/05/2023 History of placement of stent for coronary artery disease Status post coronary artery stent placement Kristi MILLER Plan of Treatment Date Care Activity Detail Author Start: 2029 Respiratory Syncytial Virus Immunization: Risk, 60-74 Risk, or 75+ (1 - 1-dose 75+ series) Respiratory Syncytial Virus Immunization: Risk, 60-74 Risk, or 75+ (1 - 1-dose 75+ series) [facility] Start: 05-27-2025 Influenza vaccination Influenza Vaccine (#1) [facility] Start: 05-27-2024 COVID-19 Vaccine () COVID-19 Vaccine () [facility] Start: 04-06-2023 Patient discharge [facility] Start: 04-05-2023 End: 04-06-2023 [facility] Start: 04-05-2023 Admission procedure [facility] Start: 04-05-2023 Following clinical pathway protocol [facility] Start: 04-05-2023 Cardiac monitoring [facility] Start: 04-05-2023 Cardiac rehabilitation - phase 1 [facility] Start: 04-05-2023 Notification of physician [facility] Start: 04-05-2023 Oxygen therapy [facility] Start: 04-05-2023 Patient discharge [facility] Start: 04-05-2023 Systemic arterial pressure monitoring [facility] Start: 04-05-2023 Taking patient vital signs [facility] Start: 04-05-2023 Vascular disease risk assessment [facility] Start: 04-05-2023 Vital signs measurements [facility] Start: 04-05-2023 [facility] Start: 05-11-2022 Patient discharge [facility] Work Phone: Start: 05-10-2022 Following clinical pathway protocol [facility] Work Phone: Start: 05-10-2022 Ambulation without limitation [facility] Work Phone: Start: 05-10-2022 Assessment of risk of venous thromboembolism [facility] Work Phone: Start: 05-10-2022 Catheterization of vein [facility] Work Phone: Start: 05-10-2022 Documentation procedure [facility] Work Phone: Start: 05-10-2022 Insertion of catheter into peripheral vein [facility] Work Phone: Start: 05-10-2022 Measuring intake and output [facility] Work Phone: Start: 05-10-2022 Oxygen therapy [facility] Work Phone: Start: 05-10-2022 Providing care according to standard [facility] Work Phone: Start: 05-10-2022 [facility] Work Phone: Start: 05-10-2022 Verification routine [facility] Work Phone: Start: 05-10-2022 Admission procedure [facility] Work Phone: Start: 2019 Fall risk assessment Falls Risk Assessment [facility] Start: 2004 Administration of herpes zoster vaccine Zoster Vaccines (1 of 2) [facility] Start: 2004 Pneumococcal Vaccine: Age 50+ (1 of 1 - PCV) Pneumococcal Vaccine: Age 50+ (1 of 1 - PCV) [facility] Start: 2004 Screening for malignant neoplasm of colon Flexible sigmoidoscopy [facility] Start: 1972 Hepatitis C screening Hepatitis C Screening [facility] Start: 1966 Depression screening using PHQ-9 (Patient Health Questionnaire 9) score Depression Screening/Follow-Up (PHQ-2/9) [facility] Start: 1957 Medicare Wellness Visit Medicare Wellness Visit [facility] Start: 1954 Prostate specific antigen measurement PSA Level [facility] Start: 1954 Screening for malignant neoplasm of colon [facility] Start: 1954 Tetanus vaccination Tetanus: Every 10yrs [facility] Alanine aminotransfe rase [Enzymatic activity/volume] in Serum or Plasma [facility] Work Phone: Albumin [Mass/volume ] in Serum or Plasma [facility] Work Phone: Alkaline phosphatase [Enzymatic activity/volume] in Serum or Plasma [facility] Work Phone: Anion gap measurement [facility] Work Phone: Aspartate aminotrans ferase [Enzymatic activity/volume] in Serum or Plasma [facility] Work Phone: Bilirubin, total measurement [facility] Work Phone: BUN/Creatinine ratio [facility] Work Phone: Calcium [Mass/volume ] in Serum or Plasma [facility] Work Phone: Carbon dioxide, tota l [Moles/volume] in Serum or Plasma [facility] Work Phone: Cardioversion [facility] Work Phone: Cardioversion [facility] Chloride [Moles/volu me] in Serum or Plasma [facility] Work Phone: Creatinine [Moles/vo lume] in Serum or Plasma [facility] Work Phone: Glucose [Mass/volume ] in Serum or Plasma [facility] Work Phone: Hematocrit [Volume Fraction] of Blood [facility] Work Phone: Hemoglobin [Mass/vol ume] in Blood [facility] Work Phone: Leukocytes [#/volume ] in Blood [facility] Work Phone: Lipid 1996 panel - S bhavya or Plasma [facility] Mean corpuscular hem oglobin concentration determination [facility] Work Phone: Mean corpuscular hem oglobin determination [facility] Work Phone: Measurement of renal function [facility] Work Phone: Measurement of respi ratory function [facility] Neutrophil count [facility] Work Phone: Neutrophil percent differential count [facility] Work Phone: Patient referral [facility] Work Phone: Platelets [#/volume] in Blood [facility] Work Phone: Potassium [Moles/vol ume] in Serum or Plasma [facility] Work Phone: Radionuclide imaging of perfusion of myocardium under exercise stress [facility] Red blood cell count [facility] Work Phone: Red cell distributio n width determination [facility] Work Phone: Sodium [Moles/volume ] in Serum or Plasma [facility] Work Phone: Total protein measurement [facility] Work Phone: Urea nitrogen [Mass/ volume] in Serum or Plasma [facility] Work Phone: [facility] Immunizations Immunization Date Immunization Notes Care Provider Fa cili 06-06-2021 Virgen (Pfizer) MD Bear collado Work Phone: [facility] 05-16-2021 Virgen (Pfizer) MD Bear collado Work Phone: [facility] Payers Date Payer Category Payer Medicare (Managed Care) [employer] [id number] 2024 Medicare [id number] 2024 Self-pay [id number] 1955 Unknown [id number] Unknown [id number] Unknown [id number]. 462 Unknown [id number]. 462 Unknown [id number]. 462 Unknown [id number]. 462 Unknown [id number]. 462 Unknown [id number] 2.840.1.859806.3.579.2. 462 Unknown [id number] 2.840.1.149381.3.579.2. 462 Unknown [id number] 2.840.1.184766.3.579.2. 462 Unknown [id number] 2.840.1.199234.3.579.2. 462 Unknown [id number] 2.840.1.905751.3.579.2. 462 Unknown [id number] 2.840.1.216359.3.579.2. 462 Unknown [id number] 2.840.1.271512.3.579.2. 462 Unknown [id number] 2.840.1.300734.3.579.2. 462 Unknown [id number] 2.840.1.864218.3.579.2. 462 Unknown [id number] 2.840.1.152359.3.579.2. 462 Unknown [id number] 2.840.1.041221.3.579.2. 462 Unknown [id number]. 462 Unknown [id number]. 462 Unknown [id number]. 462 Social History Date Type Detail Facility Start: 05-10-2022 End: 01-05-2024 Tobacco smoking status NHIS Unknown if ever smoked [facility] Start: 05-16-2018 Non-smoker [facility] Start: 1955 Sex Assigned At Male [facility] Start: 10-29-2024 Tobacco smoking status NHIS Ex-smoker (finding) [facility] Start: 12-24-2024 Sex Male (finding) [facility] Start: 03-25-2025 Tobacco smoking status NHIS Never smoked tobacco [facility] Start: 03-25-2025 Tobacco use and exposure Smokeless tobacco non-user [facility] Start: 03-27-2025 Alcoholic beverage intake Ex-drinker (finding) [facility] Start: 03-25-2025 End: 03-27-2025 History of Social function [facility] Start: 03-25-2025 End: 03-27-2025 Tobacco use panel [facility] Start: 1955 Sex assigned at Not on file [facility] Start: 02-06-2025 Gender identity Identifies as male gender (finding) [facility] Start: 02-06-2025 Sexual orientation Heterosexual (finding) [facility] Medical Equipment Procedure Code Equipment Code Equipment Origin al Text Equipment Identifier Dates Drug-eluting coronary artery stent, [id number] lymer-coated [id number] [facility] Start: 04-05-2023 Drug-eluting coronary artery stent, nbo-[id number]-hf lymer-coated ()[id number] FDA Start: 04-05-2023 Goals Date Patient Goal Desired Activity /State Functional Status Date Assessment Result Facility 04-06-2023 Functional status Ambulates;Bathroom Priv ilege [facility] Work Phone: 05-11-2022 Functional status Ambulates;Up ad marilee;Ana ir [facility] Work Phone: Mental Status Date Assessment Result Facility 04-06-2023 Cognitive function Appropriate;Cooperativ e [facility] Work Phone: 05-11-2022 Cognitive function Voice/Name [facility] Work Phone: Clinical Notes 05-10-2022 to 03-25-2025 Cuauhtemoc Nevarez MD - 03/25/2025 10:26 AM EDT Note Date & Type Note Facility 03-25-2025 Note [facility] - Urology [facility] Patient / Consultation Patient Name: Reji Alcaraz Encounter Date: 03/25/25 MR #: [id number] : 1955 Physicians: Prosper Ngo MD (Family); Prosper Ngo MD (Referring) Chief Complaint/Reason for Visit: penile injury History of Present Illness: 69 y.o. male referred for penile injury Sustained buckle type injury when attempting to have intercourse ~5 months ago. His penis bent downwards & he had immediate onset of pain followed by rapid detumescence, but denies any noticeable bruising or swelling either immediately or over the next few days. No gross hematuria following the incident. He had pain for a few days thereafter which eventually subsided. Since then, he is able to get partial ~50% erections which are not painful, but he has ~45 degrees downward curvature beginning around the mid shaft. He has tried to bend it back upwards when erect, but this is painful. Unable to have penetrative sex since then due to pain. Still able to achieve orgasm & ejaculation with stimulation. Also reports worsening LUTS since the injury, as described below. BREE 14 Prior / Current treatment: No Prior Hx ED / sexual dysfunction: No Prior urology evaluation: No LUTS: Weak stream, frequency, sensation of incomplete emptying, postvoid dribbling; nocturia x 5. IPSS 26 / QoL 5 / no meds / no interest in intervention. GH: No Incontinence: Yes, occasional post void dribbling, worse at night. Hx UTI / STI: A few remote infections years ago, none recently. Hx stones: No BMs: regular, daily; denies constipation. No prior PSA testing available within the medical record. Prior Hx elevated PSA: No Relevant PMHx / PSHx: CAD s/p PCI with stent, Anticoagulation / antiplatelet therapy: Yes, warfarin & Plavix Abdominopelvic surgeries: No SHx Tobacco: Yes, former smoke >50 pack years, quit 20 years ago. EtOH: Yes, former heavy drinker, quit many years ago. Marijuana: multiple times daily. Illicit drugs: No Record Review: - I reviewed patient's records from PCP Prosper Ngo MD. History: The past medical, past surgical, family, and social histories were reviewed with the patient, and any changes were reconciled in the patient's chart. Past Medical History: Diagnosis Date Atrial fibrillation (HCC) Hypertension Past Surgical History: Procedure Laterality Date CARDIOVERSION x2 CORONARY ANGIOPLASTY WITH STENT PLACEMENT History reviewed. No pertinent family history. Social History [1] Allergies: I have reviewed the patient's allergies. Patient has no known allergies. Home Medications: Outpatient Medications as of 03/25/2025 Medication Sig amLODIPine (NORVASC) 5 MG tablet Take 1 (one) tablet (5 mg total) by mouth daily . atorvastatin (LIPITOR) 40 MG tablet Take 1 (one) tablet (40 mg total) by mouth nightly . clopidogreL (PLAVIX) 75 mg tablet Take 1 (one) tablet (75 mg total) by mouth daily . famotidine (PEPCID) 20 MG tablet Take 1 (one) tablet (20 mg total) by mouth daily . losartan (COZAAR) 50 MG tablet Take 1 (one) tablet (50 mg total) by mouth daily . metoprolol tartrate (LOPRESSOR) 25 MG tablet Take 1 (one) tablet (25 mg total) by mouth 2 (two) times a day . warfarin (COUMADIN) 2 MG tablet Take 1 (one) tablet (2 mg total) by mouth daily 2mg Tuesday & Tuesday - 4mg other days of the week . Review of Systems: The following system(s) were reviewed and pertinent findings noted: Review of Systems Constitutional: Negative for activity change, chills, fever and unexpected weight change. Gastrointestinal: Negative for abdominal pain, diarrhea, nausea and vomiting. Objective: Vital Signs: BP 127/80 (BP Location: Left arm, Patient Position: Sitting, BP Cuff Size: X-large Adult) Pulse (!) 58 SpO2 95% Physical Exam Vitals reviewed. Constitutional: General: He is not in acute distress. Appearance: He is not diaphoretic. Pulmonary: Effort: Pulmonary effort is normal. No respiratory distress. Abdominal: General: There is no distension. Palpations: Abdomen is soft. Tenderness: There is no abdominal tenderness. Genitourinary: Comments: Circumcised phallus, orthotopic patent meatus, palpable plaques along the right and left lateral shaft of the penis near the base /penoscrotal junction Neurological: General: No focal deficit present. Mental Status: He is alert and oriented to person, place, and time. Psychiatric: Mood and Affect: Mood normal. Behavior: Behavior normal. Laboratory Results Reviewed: No results found for: PSASCRN, PSA, PSAFREE, EXTPSATOTALM, EXTPSATOT, EXTPSATOTAL, EXTPSA%FREE No results found for: TESTOSTERONE, EXTTEST, E2, EXTESTRADIOL No results found for: EXTWBC, EXTHGB, EXTHCT, EXTPLATELETC No results found for: WBC, HGB, HCT, MCV, PLT No results found for: EXTGLUCOSE, EXTCALC (more content not included)... [facility] 03-25-2025 History of Present illness Narrative [facility] - Urology [facility] Patient / Consultation Patient Name: Reji Alcaraz Encounter Date: 03/25/25 MR #: [id number] : 1955 Physicians: Prosper Ngo MD (Family); Prosper Ngo MD (Referring) Chief Complaint/Reason for Visit: penile injury History of Present Illness: 69 y.o. male referred for penile injury Sustained buckle type injury when attempting to have intercourse ~5 months ago. His penis bent downwards & he had immediate onset of pain followed by rapid detumescence, but denies any noticeable bruising or swelling either immediately or over the next few days. No gross hematuria following the incident. He had pain for a few days thereafter which eventually subsided. Since then, he is able to get partial ~50% erections which are not painful, but he has ~45 degrees downward curvature beginning around the mid shaft. He has tried to bend it back upwards when erect, but this is painful. Unable to have penetrative sex since then due to pain. Still able to achieve orgasm & ejaculation with stimulation. Also reports worsening LUTS since the injury, as described below. BREE 14 Prior / Current treatment: No Prior Hx ED / sexual dysfunction: No Prior urology evaluation: No LUTS: Weak stream, frequency, sensation of incomplete emptying, postvoid dribbling; nocturia x 5. IPSS 26 / QoL 5 / no meds / no interest in intervention. GH: No Incontinence: Yes, occasional post void dribbling, worse at night. Hx UTI / STI: A few remote infections years ago, none recently. Hx stones: No BMs: regular, daily; denies constipation. No prior PSA testing available within the medical record. Prior Hx elevated PSA: No Relevant PMHx / PSHx: CAD s/p PCI with stent, Anticoagulation / antiplatelet therapy: Yes, warfarin & Plavix Abdominopelvic surgeries: No SHx Tobacco: Yes, former smoke >50 pack years, quit 20 years ago. EtOH: Yes, former heavy drinker, quit many years ago. Marijuana: multiple times daily. Illicit drugs: No Record Review: - I reviewed patient's records from PCP Prosper Ngo MD. History: The past medical, past surgical, family, and social histories were reviewed with the patient, and any changes were reconciled in the patient's chart. Past Medical History: Diagnosis Date Atrial fibrillation (HCC) Hypertension Past Surgical History: Procedure Laterality Date CARDIOVERSION x2 CORONARY ANGIOPLASTY WITH STENT PLACEMENT History reviewed. No pertinent family history. Social History [1] Allergies: I have reviewed the patient's allergies. Patient has no known allergies. Home Medications: Outpatient Medications as of 03/25/2025 Medication Sig amLODIPine (NORVASC) 5 MG tablet Take 1 (one) tablet (5 mg total) by mouth daily . atorvastatin (LIPITOR) 40 MG tablet Take 1 (one) tablet (40 mg total) by mouth nightly . clopidogreL (PLAVIX) 75 mg tablet Take 1 (one) tablet (75 mg total) by mouth daily . famotidine (PEPCID) 20 MG tablet Take 1 (one) tablet (20 mg total) by mouth daily . losartan (COZAAR) 50 MG tablet Take 1 (one) tablet (50 mg total) by mouth daily . metoprolol tartrate (LOPRESSOR) 25 MG tablet Take 1 (one) tablet (25 mg total) by mouth 2 (two) times a day . warfarin (COUMADIN) 2 MG tablet Take 1 (one) tablet (2 mg total) by mouth daily 2mg Tuesday & Tuesday - 4mg other days of the week . Review of Systems: The following system(s) were reviewed and pertinent findings noted: Review of Systems Constitutional: Negative for activity change, chills, fever and unexpected weight change. Gastrointestinal: Negative for abdominal pain, diarrhea, nausea and vomiting. Objective: Vital Signs: BP 127/80 (BP Location: Left arm, Patient Position: Sitting, BP Cuff Size: X-large Adult) Pulse (!) 58 SpO2 95% Physical Exam Vitals reviewed. Constitutional: General: He is not in acute distress. Appearance: He is not diaphoretic. Pulmonary: Effort: Pulmonary effort is normal. No respiratory distress. Abdominal: General: There is no distension. Palpations: Abdomen is soft. Tenderness: There is no abdominal tenderness. Genitourinary: Comments: Circumcised phallus, orthotopic patent meatus, palpable plaques along the right and left lateral shaft of the penis near the base /penoscrotal junction Neurological: General: No focal deficit present. Mental Status: He is alert and oriented to person, place, and time. Psychiatric: Mood and Affect: Mood normal. Behavior: Behavior normal. Laboratory Results Reviewed: No results found for: PSASCRN, PSA, PSAFREE, EXTPSATOTALM, EXTPSATOT, EXTPSATOTAL, EXTPSA%FREE No results found for: TESTOSTERONE, EXTTEST, E2, EXTESTRADIOL No results found for: EXTWBC, EXTHGB, EXTHCT, EXTPLATELETC No results found for: WBC, HGB, HCT, MCV, PLT No results found for: EXTGLUCOSE, EXTCALCIUM, EXTK, EXTCL, EXTBUN, CREATININE, EXTDEXGFR No results found for: GLUCOSE, CALCIUM, NA, K, CL, BUN, CREATININE, GFR No results found for: CULTUREURN, EXTCULTUREUR, EXTDEXTCULT, EXTREFLEXIVE Recent Results (from the past 24 hours) Measure post void residual Collection Time: 03/25/25 10:38 AM Result Value Ref Range Measure Post Void Residual 0 POC Urinalysis Dipstick, Auto Collection Time: 03/25/25 10:39 AM Result Value Ref Range Glucose, UA Negative Normal, Negative mg/dL Bilirubin, UA Negative Negative Ketones, UA Negative Negative mg/dL Spec Grav, UA 1.005 1.005 - 1.025 Blood, UA Negative Negative pH, UA 5.0 5.0 - 7.0 Protein, UA Negative Negative mg/dL Urobilinogen, UA 0.2 <2.0, 0.2, Normal, Negative, 1.0, 2.0, <1.0 mg/dL Nitrite, UA Negative Negative Leukocyte Esterase, UA Moderate (A) Negative International Prostate Symptom Score (IPSS) Date: 03/25/2025 Over the last month: 1. How often have you had a sensation of not emptying your bladder completely after you finish urinating? 5 - Almost always 2. How often have you had to urinate again less than two hours after you finished urinating? 5 - Almost always 3. How often have you found you stopped and started again several times when you urinated? 3 - About half the time 4. How difficult have you found it to postpone urination? 3 - About half the time 5. How often have you had a weak urinary stream? 5 - Almost always 6. How often have you had to push or strain to begin urination? 0 - Not at all 7. How many times did you most typically get up to urinate from the time you went to bed until the time you got up in the morning? 5 - 5+ times Total score: - 26 0-7 - Mildly symptomatic 8-19 - Moderately symptomatic 20-35 - Severely symptomatic Bother / Quality of Life: 8. If you were to spend the rest of your life with your urinary condition just the way it is now, how would you feel about that? 5 - Unhappy Additional Questions: 9a. Have you tried medications to help your symptoms? 9b. Did these medications help your symptoms? (1-10; 1 - no relief, 10 - complete relief) No N/A 10. Would you be interested in learning about a minimally invasive option that could allow you to avoid or discontinue enlarged prostate medications? No Sexual Health Inventory for Men (BREE) Date: 03/25/2025 Over the past 6 months: 1. How do you rate your confidence that you could get and keep an erection? 4 - High 2. When you had erections with sexual stimulation, how often were your erections hard enough for penetration? 4 - Most times (much more than 1/2) 3. During sexual intercourse, how often were you able to maintain your erection after initial penetration? 4 - Most times (much more than 1/2) 4. During sexual intercourse, how difficult was it to maintain your erection to completion of intercourse? 4 - Slightly difficult 5. When you attempted sexual intercourse, how often was it satisfactory for you? 3 - Sometimes (~1/2) Total score: - 19 1-7 - Severe ED 8-11 - Moderate ED 12-16 - Mild to Moderate ED 17-21 - Mild ED Imaging Reviewed: No relevant imaging. Assessment: Reji Alcaraz is a 69 y.o. y/o male Diagnoses and all orders for this visit: Injury to penis, initial encounter - POC Urinalysis Dipstick, Auto - Measure post void residual - Ambulatory referral to Urology; Future Peyronie disease - Ambulatory referral to Urology; Future Erectile dysfunction, unspecified erectile dysfunction type - Ambulatory referral to Urology; Future BPH with obstruction/lower urinary tract symptoms - tamsulosin (FLOMAX) 0.4 mg capsule; Take 1 (one) capsule (0.4 mg total) by mouth every evening . Frequency of urination Urinary urgency - UA today shows neg RBC, moderate LE, neg nitrite. No further workup today. - PVR today by bladder scan: 0 cc - Discussed dietary & lifestyle changes for overall health & its contribution to erections, including weight loss, increasing / regular physical activity, heart-healthy / low-salt / low-fat diet, adequate glycemic control for diabetics, smoking cessation for smokers. - Discussed the importance of mental / emotional / behavioral health & its contribution to sexual health, confidence & healthy erectile function / sexual performance. - Discussed the negative impacts of stress & anxiety on sexual health. - Discussed that ED is a risk marker for cardiovascular disease among other health conditions that may warrant screening evaluation & workup through primary care. - Discussed the recommendations for screening for hypogonadism in patients with ED as it can be the only presenting symptom of low testosterone & may resolve with TRT. - Discussed risks/benefits/alternatives to oral therapy for ED. - Discussed appropriate dosing / timing of sildenafil allowing at least 30-60 minutes prior to sexual encounter for sildenafil & 1-2 hours for tadalafil, avoiding fatty meal prior to use of sildenafil, possible side affects. - Discussed cost-savings resources for oral medications. - Discussed alternative treatments for ED including ELIDIA +/- constriction ring, intraurethral medication, ICI, penile prosthesis. - Discussed signs/symptoms & typical clinical course of Peyronie disease including active phase & stable disease. - Discussed the recommendation for in-office intracavernosal injection for artificial erection for complete evaluation of plaques & curvature prior to invasive intervention. - Discussed risks/benefits/alternatives to therapies including NSAIDs and/or ESWT for pain in active phase, intralesional collagenase injections with modeling, intralesional interferon alpha-2b, intralesional verapamil, surgical treatments including plication, plaque incision and/or excision with or without grafting, penile prosthesis. - Discussed BPH & associated LUTS, risks/benefits/alternatives to medical management options for symptoms. - Discussed side effects of alpha blockers including but not limited to dizziness / lightheadedness / orthostasis, rhinitis, retrograde ejaculation, floppy iris syndrome. - Discussed side effects of 5aRI including but not limited to decreased libido, ED, ejaculatory dysfunction, gynecomastia. - Discussed the role of additional medical management options including PDE5i, anticholinergics, beta3 agonists based on response to first line medications and/or specific symptomatic scenarios. - Discussed potential additional diagnostic evaluation including CT/US imaging, TRUS for prostate volume, cystoscopy (urethral & bladder neck obstruction, median lobe evaluation, bladder sequelae of longstanding obstruction including trabeculations, diverticula, stones), cystometrics / urodynamics for bladder function - Discussed potential progression / complications of BPH & associated indications for outlet procedures including recurrent UTI, persistent urinary retention, bladder stones, recurrent / refractory hematuria, upper tract deterioration, LUTS refractory to medical management. - Discussed urgency / frequency / urge incontinence & risks/benefits/alternatives to management options. - Discussed the first line treatments including behavioral / dietary modifications, bladder diet / avoiding bladder irritants, double voiding, timed voiding, bladder diary. - Discussed the second line treatments including anticholinergics & beta-3 agonists. - Discussed the third line treatments including sacral neuromodulation & intravesical onabotulinum toxin A injections. - Discussed constipation & how it relates to & typically exacerbates frequency / urgency symptoms. Recommended OTC Miralax 1-2x daily until having at least one soft bowel movement daily. Offered prescription for this if needed. - Discussed potential additional diagnostic evaluation including cystoscopy & urodynamics. - Discussed that in men, these symptoms are often the classic storage symptoms attributed to BPH & that treatment with an alpha rosana often produces significant improvement in both storage & obstructive/voiding symptoms in these patients. Plan: Palpable plaques on exam with symptoms of Peyronie disease by history following some degree of penile injury with pain and immediate detumescence, however he did not have the classic signs of penile fracture (bruising and swelling); also some concern for possible concomitant urethral injury due to significant worsening LUTS since the injury, however he did not have gross hematuria following the injury. Will refer to reconstructive urology Reji Navarro MD. Start Flomax 0.4 mg daily. Bladder training; timed and double voiding. Recommended he discuss sleep study / evaluation for CARLOS with his PCP. F/u ~as needed with me to reassess. Return to care with issues / concerns / worsening or new symptoms. Patient expressed understanding of the above discussion. All questions answered. Assessment Detail: The total time spent for this visit was 50 minutes. Greater than 50% of the time was spent in counseling and coordination of care regarding ED, penile fracture, Peyronie's disease, BPH, OAB, follow-up plan. Cuauhtemoc Nevarez MD [facility] 03/25/25 10:26 AM [1] Social History Socioeconomic History Marital status: Tobacco Use Smoking status: Never Smokeless tobacco: Never Substance and Sexual Activity Alcohol use: Not Currently Drug use: Yes Types: Marijuana Sexual activity: Yes documented in this encounter [facility] 10-29-2024 Evaluation note Diagnosis Onset Date Resolution Strain of left pectoralis muscle acute October 29, 2024 11:16am [facility] Work Phone: 1(506) 550-102502-03-2025 Evaluation note* Diagnosis Onset Date Resolution Status Admit Date Strain of left pectoralis muscle acute October 29 11:16am Atrial fibrillation with rapid ventricular response May 10, 2022 acute Apr il 2024 10:58am Essential hypertension acute Ap ril 2024 10:58am Hyperlipidemia acute December 10:58am Status post coronary artery stent placement chronic January 03, 2025 10:58am [facility] Work Phone: 1(195) 161-725507-12-2023 Discharge summary Author Krisit Arroyo [facility] April 06, 2023 10:34am Note Date/Time April 06, 2023 10:0 6am [facility] Medical Records Department [address] [place] [address] Instructions for Home/Discharge Instructions 04/06/23 1003 MR#: [id number] Acct: [id number] Name: REJI ALCARAZ Rep #:[id number] : 1955 67 From: Kristi MILLER PA PCP: Dr. Prosper Ngo MD Status:ADM [facility] Discharge Instructions Activity Discharge Activity: Return to Normal Activity Lifting Restrictions: nothing greater than 10 lbs for 3 days Follow Up Care Test Results: Test results from this visit will be discussed in further detail at your follow- up appointment, if applicable. Discharge Plan Admission Admit Date/Time: 04/05/23 15:38 Primary Reason for Your Visit: PCI Attending Provider: Isauro Ulloa Primary Care Provider: Prosper Ngo Instructions Additional Instructions / Restrictions: You were started on Brilinta, this is an antiplatelet that we will keep your stent open. If this is too costly for you at your office visit we can discuss switching this over to clopidogrel. However this antiplatelet cannot be discontinued. Your blood pressure has been slightly elevated, you were also started on Norvascat 5 mg. We will continue to monitor your blood pressure readings on an outpatient basis You will be referred to cardiac rehab. You have a f/u [facility] on 04/21/2023 at 1 pm with Kristi MILLER. Discharge Orders/Prescriptions Prescriptions: New amlodipine 5 mg Tablet 5 mg PO DAILY Qty: 30 12RF aspirin 81 mg Tablet,Delayed Release (Dr/Ec) 81 mg PO DAILY@0800 Qty: 30 12RF Brilinta 90 mg Tablet 90 mg PO BID Qty: 60 12RF Continued Eliquis 5 mg tablet 5 mg PO BID Qty: 60 11RF famotidine [Acid Farm Service Consultant (famotidine)] 20 mg tablet 20 mg PO DAILY metoprolol tartrate 25 mg tablet 25 mg PO BID Qty: 180 3RF amiodarone 200 mg tablet 200 mg PO DAILY Qty: 90 3RF losartan 50 mg tablet 50 mg PO BID Qty: 180 3RF Referrals / Follow Up: Prosper Ngo MD [Primary Care Provider] - Kristi Arroyo PA [Med Staff - [facility]] - Disposition Disposition (needs filled in before D/C Order can be placed): Home, Self Care 04/06/23 1034<Electronically signed by Kristi MILLER PA>Kristi MILLER CC: Dr. Prosper Ngo MD ~ Signed [facility] Work Phone: [phone] Progress note Author Kristi Arroyo [facility] April 06, 2023 10:03am Note Date/Time April 06, 2023 10:0 3am [facility] Medical Records Department [address] [place] [address] Progress Note 04/06/23 1002 MR#: [id number] Acct: [id number] Name: DRAKEFILIPECHRISREJIEMELY FERMIN Rep #:[id number] : 1955 67 From: Kristi MILLER PCP: Dr. Prosper Ngo MD Status:ADM [facility] Location: ICU CVICU20 3-1 Progress Note Patient's blood pressure is still elevated this morning. We will add Norvasc at5 mg. If blood pressure is improved plan on discharging at lunchtime. Feel that his blood pressure is elevated likely due to anxiety. 04/06/23 1003 <Electronically signed by Kristi MILLER> Kristi MILLER Cosigner Signature (if applicable): CC: ~ Signed [facility] Work Phone: [phone] History and physical note Author Dixie Haynes [facility] March 30, 2023 12:44pm Note Date/Time March 30, 2023 12:44 pm [facility] Medical Records Department [address] [place] [address] History & Physical Exam 03/30/23 1236 MR#: [id number] Acct: [id number] Name: HANNYCHRISREJIEMELY FERMIN Rep #:[id number] : 1955 67 From: Dixie Mcnamara PSYCHIATRIC LPN-C PCP: Dr. Prosper Ngo MD [place] [facility] [place] [facility] History and Physical Date of Admission: 04/05/23 This is a pleasant 67-year-old man who presents to the cardiac labor relations director for a cardiac catheterization. He has a history of hyperlipidemia [facility] with palpitations and shortness of breath. He was noted to be in atrial fibrillation with a rapid ventricular response rate. He thinks that this has been going on for at least 2 years. He had not seen a physician in 3 to 4 years and was not on any medication. He received intravenous diltiazem as well as digoxin. His heart rate appeared to be under good control and he was discharged on beta- rosana and calcium channel rosana. He was also noted to have mildly elevated natruretic peptide level but was not put on a diuretic. His echocardiogram demonstrated moderately severe global leftventricular systolic function estimated to be 35% with mild to moderate mitral regurgitation and mild to moderate tricuspid regurgitation. Patient had successful cardioversion on 06/14/2022. EKG follow-up on 06/22/2022 showed atrial fibrillation with RVR and he was started on amiodarone therapy. EKG follow-up on 06/30/2021 continued to show atrial fibrillation. He proceeded with a cardioversion on 07/27/2022 with amiodarone assistance. From a cardiac standpoint, the patient is doing well. He denies any palpitations, chest pain, pressure or heaviness. He does have an occasional SOB with exertion. He states this worsening. He denies Orthopnea, and PND. He does not have bleeding issues; no blood in urine, stool or nosebleeds. He does acknowledge fatigue. He denies myalgias, or claudication. He does not have edema, or sudden weight gain. He does have an occasional lightheadedness with quick positional changes. He denies dizziness, syncopal or near syncopal episodes, and headaches. His blood pressures at home average 120-130's/70-80's. Intake Vital Signs See EMR Allergies See EMR Medications See EMR Ejection fraction %: 55 to 59 PFSH Medical History Arthritis Atrial fibrillation with rapid ventricular response (05/10/22) Cardiomyopathy ETOH abuse GERD (gastroesophageal reflux disease) HFrEF (heart failure with reduced ejection fraction) Irregular heart beat Marijuana use Prostate cancer screening Seasonal allergies Surgical History History of cardioversion (06/14/22) History of facial surgery History of surgery on arm Family History Father Myocardial infarction, Onset Age: 45 Cancer prostate Social History Smoking Status: Never smoker how long ago did patient quit smokin alcohol intake: never substance use type: does not use what type of physical activity do you participate in: bicycling frequency: daily ROS Const Const: Positive for fatigue; Negative for weakness, fever(s), headache(s), chills, frequent falls, weight gain or weight loss Eyes Eyes: Negative for blind spots, loss of peripheral vision, transient loss of vision, blurry vision, change in vision, double vision, floaters or tunnel vision ENT ENT: Negative for headache(s), dizziness, Nosebleed/epistaxis, balance problems or neck pain Cardio Chest Pain: No Palpitations: No Edema: None Muscle aches with walking: None Resp Respiratory: Positive for SOB with activity (worsening); Negative for SOB at rest or SOB orthopnea\SOB lying down GI GI: Negative nausea, vomiting, heartburn, bloating, vomiting blood/hematemesis, bright, red blood in stools or black,tarry stools Musc Musc: Negative for muscle aches/ myalgia, muscle weakness, joint pain or balanceproblems Neuro Neuro: Positive for lightheadedness (occasional with quick positional changes); Negative for dizziness, near syncope, syncope, orthostatic symptoms, frequent falls, headache(s), weakness, blurry vision or double vision Julian Hematologic/Lymphatic: Negative for easy bleeding or easy bruising Endo Endo: Positive for fatigue Cardiology Exam Const Appearance: cooperative, healthy appearing, no acute distress, well developed and well groomed Nutritional Appearance: average body habitus, well nourished and obese Orientation: alert, awake and oriented x3 Head Head: normal to inspection Ears: hearing grossly normal bilaterally Nose: external nose normal Face and Sinus: face symmetric Eyes General: appearance normal, both eyes and all related structures Eyelids: eyelids normal Conjunctivae: conjunctivae normal Pupils: PERRL, normal by confrontation and accommodation normal EOM: EOM intact bilaterally Neck Neck: normal visual inspection, trachea midline and no JVD JVD: +5 Carotids: normal carotid upstroke and bounding pulses Chest Chest inspection: normal inspection of the chest, symmetric chest movement and normal respiratory effort Auscultation: Bilateral: Clear to Auscultation Cardio Palpation: normal PMI Rate: bradycardic Rhythm: regular rhythm Heart sounds: S1 normal, S2 normal and normal, physiologic split S2; Negative rub, gallop or murmur GI GI: normal to inspection, soft and obese Neuro General: patient alert, patient awake, patient oriented x3, gait normal, moves all extremities and no focal sensory deficit Skin Skin: no rashes or lesions noted Extremities Pulses: Normal: Right Posterior Tibial Pulse, Left Posterior Tibial Pulse, RightRadial Pulse and Left Radial Pulse Lower Extremity Edema: None: Bilateral Musculoskel Musculoskeletal: No joint tenderness Psych Psychological: normal affect Supplemental Info Supplemental Information Echocardiogram 10/11/2022: Interpretation Summary Normal LV size. Left ventricular systolic function is normal. The estimated ejection fraction is 55 %. Mild (1+) eccentric mitral valve insufficiency. Pulmonary artery systolic pressure is 26 mmHg. ECHOCARDIOGRAM 05/10/22 Interpretation Summary Normal LV size. Mild concentric left ventricular hypertrophy. Moderately severe global left ventricular systolic dysfunction. Mild-Moderate (1-2+) eccentric mitral valve insufficiency. Pulmonary artery systolic pressure is 34 mmHg. The estimated ejection fraction is 35 %. Contrast injection was performed. Assessment and Plan Assessment and Plan (1) Abnormal Stress Test: Patients most recent stress test from 11/29/2022 demonstrated normal exercise myocardial perfusion stress test at a moderate workload, preserved ejection fraction, EKG changes suggestive of ischemia and a hypertensive response to exercise. The patient exercised according to the regular Nicholas protocol for a total duration of 4 minutes and 30 seconds. Would like to obtain a cardiac catheterization to further assess this. Depending on results, further recommendations will be made. (2) HFrEF (heart failure with reduced ejection fraction): Status: Acute Plan: Patient has a history of heart failure with reduced ejection fraction. This has improved. His most recent echocardiogram from 10/11/2022 demonstrated an ejectionfraction of 55%. He will continue losartan 50mg twice daily, and metoprolol tartrate 25mg twice daily. He will continue to monitor for any concerning symptoms. (3) Atrial fibrillation, new onset: Status: Acute Plan: Patient has a history of atrial fibrillation. His echocardiogram from 10/11/2022 demonstrated an ejection fraction of 55%, and normal atrial size. He underwent asuccessful cardioversion on 07/27/2022. He denies any reoccurrence of atrial fibrillation. He will will continue amiodarone 200mg daily, metoprolol tartrate 25mg twice daily, and Eliquis 5mg twice daily. He will continue to monitor for any concerning symptoms of atrial fibrillation. (4) Hyperlipidemia: Status: Acute Plan: Patient has a history of hyperlipidemia. His PCP monitors this. His most recent lipid panel from 05/11/2022: cholesterol 161, HDL 55, LDL 91, triglycerides 74. He will continue with aggressive risk factor and lifestyle modifications. (5) PETER (dyspnea on exertion): Status: Acute Plan: Patient acknowledges worsening PETER. With his abnormal stress test, would like toobtain a cardiac catheterization to further assess this. Depending on results, further recommendations will be made. (6) Fatigue: Status: Acute Plan: Patient acknowledges fatigue. With his abnormal stress test, would like to obtain a cardiac catheterization to further assess this. 03/30/23 [id number] <Electronically signed by Dixie JIMENEZ> Cosigner Signature (if applicable): CC: TONY Haynes; Dr. Prosper Ngo MD~ Signed [facility] Work Phone: 1(950) 618-863203-14-2023 Procedure [facility] 05-10-2022 Evaluation note* Diagnosis Onset Date Resolution Status Atrial fibrillation, new onset May 10, 2022 acute Atrial fibrillation with rap id ventricular response resolved Dyspnea on exertion resolved Atrial fibrillation, new onset May 10, 2022 acute Cardiomyopathy acute HFrEF (heart failure with re duced ejection fraction) [facility] Work Phone: [phone]) 540-338808-15-2022 Evaluation note* Diagnosis Onset Date Resolution Status Atrial fibrillation, new onset May 10, 2022 acute Atrial fibrillation with rap id ventricular response resolved Dyspnea on exertion resolved Atrial fibrillation, new onset May 10, 2022 acute Cardiomyopathy acute HFrEF (heart failure with re duced ejection fraction) acute Atrial fibrillation, new onset May 10, 2022 acute Cardiomyopathy [facility] Work Phone: 1(221) 548-367808-15-2022 Evaluation note* Diagnosis Onset Date Resolution Status Atrial fibrillation, new onset May 10, 2022 acute Atrial fibrillation with rap id ventricular response resolved Dyspnea on exertion resolved Atrial fibrillation, new onset May 10, 2022 acute Cardiomyopathy acute HFrEF (heart failure with re duced ejection fraction) acute Atrial fibrillation, new onset May 10, 2022 acute Cardiomyopathy acute Atrial fibrillation, new onset May 10, 2022 acute Cardiomyopathy acute Hyperlipidemia [facility] Work Phone: 1([phone]) 219-426808-15-2022 Evaluation note* Diagnosis Onset Date Resolution Status Atrial fibrillation, new onset May 10, 2022 acute Atrial fibrillation with rap id ventricular response resolved Dyspnea on exertion resolved Atrial fibrillation, new onset May 10, 2022 acute Cardiomyopathy acute HFrEF (heart failure with re duced ejection fraction) acute Atrial fibrillation, new onset May 10, 2022 acute Cardiomyopathy acute Atrial fibrillation, new onset May 10, 2022 acute Cardiomyopathy acute Hyperlipidemia acute Atrial fibrillation with rap id ventricular response May 10, 2022 acute Atrial fibrillation, new onset May 10, 2022 acute Cardiomyopathy acute HFrEF (heart failure with re duced ejection fraction) [facility] Work Phone: [phone]) 695-898708-15-2022 Evaluation note* Diagnosis Onset Date Resolution Status Atrial fibrillation with rap id ventricular response May 10, 2022 acute Atrial fibrillation, new onset May 10, 2022 acute Cardiomyopathy acute HFrEF (heart failure with re duced ejection fraction) acute Atrial fibrillation, new onset May 10, 2022 acute HFrEF (heart failure with re duced ejection fraction) acute Hyperlipidemia [facility] Work Phone: [phone]) 570-792808-15-2022 Evaluation note* Diagnosis Onset Date Resolution Status Atrial fibrillation with rap id ventricular response May 10, 2022 acute Atrial fibrillation, new onset May 10, 2022 acute Cardiomyopathy acute HFrEF (heart failure with re duced ejection fraction) acute Atrial fibrillation, new onset May 10, 2022 acute HFrEF (heart failure with re duced ejection fraction) acute Hyperlipidemia acute Atrial fibrillation, new onset May 10, 2022 acute Elevated blood pressure reading acute HFrEF (heart failure with re duced ejection fraction) acute Hyperlipidemia acute On amiodarone therapy June 22, 2022 [facility] Work Phone: 1([phone]) 930-830508-15-2022 Evaluation note* Diagnosis Onset Date Resolution Status Atrial fibrillation, new onset May 10, 2022 acute Elevated blood pressure reading acute HFrEF (heart failure with re duced ejection fraction) acute Hyperlipidemia acute On amiodarone therapy June 22, 2022 [facility] Work Phone: 1(214) 811-293508-15-2022 Evaluation note* Diagnosis Onset Date Resolution Status Atrial fibrillation, new onset May 10, 2022 acute PETER (dyspnea on exertion) ac [place] Elevated blood pressure reading acute Fatigue acute HFrEF (heart failure with re duced ejection fraction) acute Hyperlipidemia acute On amiodarone therapy June 22, 2022 acute [facility] Work Phone: 1([phone]) 253-788608-15-2022 Evaluation note* Diagnosis Onset Date Resolution Status Atrial fibrillation with rap id ventricular response May 10, 2022 acute Essential hypertension acute Status post coronary artery stent placement [facility] Work Phone: 1(297) 439-199408-15-2022 Evaluation note* Diagnosis Onset Date Resolution Status Atrial fibrillation with rap id ventricular response May 10, 2022 acute Essential hypertension acute Hyperlipidemia acute Status post coronary artery stent placement [facility] Work Phone: [phone]) 732-380608-15-2022 Evaluation note* Diagnosis Onset Date Resolution Status Atrial fibrillation with rap id ventricular response May 10, 2022 acute Essential hypertension acute Hyperlipidemia acute Status post coronary artery stent placement chronic CAD (coronary artery disease) acute Essential hypertension acute Hyperlipidemia acute termite control servicer current use of anticoagulant acute Skin cyst acute [facility] Work Phone: [phone]) 458-882408-15-2022 Evaluation note* Diagnosis Onset Date Resolution Status Admit Date Atrial fibrillation with rapid ventricular response May 10, 2022 acute Apr 2024 10:58am Essential hypertension acute Ap 2024 10:58am Hyperlipidemia acute December 10:58am Status post coronary artery stent placement chronic January 03, 2025 10:58am [facility] Work Phone: Evaluation note* Diagnosis Onset Date Resolution Status Atrial fibrillation with rapid ventricular response acute Atrial fibrillation, new onset acute Dyspnea on exertion acute [facility] Work Phone: Evaluation note* Diagnosis Injury to penis, initial encounter- Primary Peyronie disease Peyronie's disease Erectile dysfunction, unspecified erectile dysfunction type BPH with obstruction/lower urinary tract symptoms Frequency of urination Urinary frequency Urinary urgency Urgency of urination [facility] Attachments The following attachments cannot be sent through Care Everywhere. * Erectile Dysfunction (Honduran) * Peyronie's Disease: General Info (Honduran) * Penile Fracture: General Info (Honduran) * BPH (Benign Prostatic Hyperplasia) (Honduran) * Bladder Diet (Honduran) * Bladder: Training (Honduran) documented in this encounterOhioHealthReason for referral (narrative)No reason for referral information availableWCleveland [facility] Work Phone: Chief Complaint and Reason for Visit Chief Complaint ATRIAL FIBRILLATION, PETER Reason for Visit Atrial fibrillation with rapid ventricular response Atrial fibrillation, new onset Dyspnea on exertion Chief Complaint ATRIAL FIBRILLATION, PETER ATRIAL FIBRILLATION, PETER ATRIAL FIBRILLATION, PETER ER visit 8 E-ORDER Reason for Visit Atrial fibrillation, new onset Atrial fibrillation with rapid ventricular response Dyspnea on exertion Atrial fibrillation, new onset Cardiomyopathy HFrEF (heart failure with reduced ejection fraction) Chief Complaint ATRIAL FIBRILLATION, PETER ATRIAL FIBRILLATION, PETER ATRIAL FIBRILLATION, PEETR ER visit 8 E-ORDER PERSISTENT A-FIB PERSISTENT A-FIB PERSISTENT A-FIB Reason for Visit Atrial fibrillation, new onset Atrial fibrillation with rapid ventricular response Dyspnea on exertion Atrial fibrillation, new onset Cardiomyopathy HFrEF (heart failure with reduced ejection fraction) Atrial fibrillation, new onset Cardiomyopathy Chief Complaint ATRIAL FIBRILLATION, PETER ATRIAL FIBRILLATION, PETER ATRIAL FIBRILLATION, PETER ER visit 8 E-ORDER PERSISTENT A-FIB PERSISTENT A-FIB PERSISTENT A-FIB PSYCHIATRIC LPN, PRIOR OLEGHE PT, TO EST. W/ JENI s/p DCCV 06/14/22 INT LABS Reason for Visit Atrial fibrillation, new onset Atrial fibrillation with rapid ventricular response Dyspnea on exertion Atrial fibrillation, new onset Cardiomyopathy HFrEF (heart failure with reduced ejection fraction) Atrial fibrillation, new onset Cardiomyopathy Atrial fibrillation, new onset Cardiomyopathy Hyperlipidemia Chief Complaint ATRIAL FIBRILLATION, PETER ATRIAL FIBRILLATION, PETER ATRIAL FIBRILLATION, PETER ER visit 8 E-ORDER PERSISTENT A-FIB PERSISTENT A-FIB PERSISTENT A-FIB PSYCHIATRIC LPN, PRIOR OLEGHE PT, TO EST. W/ JENI s/p DCCV 06/14/22 INT LABS started amio A-FIB A-FIB A-FIB A-FIB Reason for Visit Atrial fibrillation, new onset Atrial fibrillation with rapid ventricular response Dyspnea on exertion Atrial fibrillation, new onset Cardiomyopathy HFrEF (heart failure with reduced ejection fraction) Atrial fibrillation, new onset Cardiomyopathy Atrial fibrillation, new onset Cardiomyopathy Hyperlipidemia Atrial fibrillation with rapid ventricular response Atrial fibrillation, new onset Cardiomyopathy HFrEF (heart failure with reduced ejection fraction) Chief Complaint started amio A-FIB A-FIB A-FIB A-FIB 1 week Post DCCV ekg 3 M FU AMIODARONE THERAPY, HFrEF, A-FIB Reason for Visit Atrial fibrillation with rapid ventricular response Atrial fibrillation, new onset Cardiomyopathy HFrEF (heart failure with reduced ejection fraction) Atrial fibrillation, new onset HFrEF (heart failure with reduced ejection fraction) Hyperlipidemia Chief Complaint A-FIB A-FIB A-FIB A-FIB 1 week Post DCCV ekg 3 M FU AMIODARONE THERAPY, HFrEF, A-FIB 3 M FU Reason for Visit Atrial fibrillation with rapid ventricular response Atrial fibrillation, new onset Cardiomyopathy HFrEF (heart failure with reduced ejection fraction) Atrial fibrillation, new onset HFrEF (heart failure with reduced ejection fraction) Hyperlipidemia Atrial fibrillation, new onset Elevated blood pressure reading HFrEF (heart failure with reduced ejection fraction) Hyperlipidemia On amiodarone therapy Chief Complaint AMIODARONE THERAPY, HFrEF, A-FIB 3 M FU AMIODARONE DRUG THERAPY AMIODARONE DRUG THERAPY Reason for Visit Atrial fibrillation, new onset Elevated blood pressure reading HFrEF (heart failure with reduced ejection fraction) Hyperlipidemia On amiodarone therapy Chief Complaint AMIODARONE DRUG THER APY AMIODARONE DRUG THERAPY 3 M FU EORDERS Reason for Visit Atrial fibrillation, new onset PETER (dyspnea on exertion) Elevated blood pressure reading Fatigue HFrEF (heart failure with reduced ejection fraction) Hyperlipidemia On amiodarone therapy Chief Complaint AMIODARONE DRUG THER APY AMIODARONE DRUG THERAPY 3 M FU EORDERS FATIGUE;DYSPNEA FATIGUE;DYSPNEA Abnormal result of other cardiovascular function s Abnormal result of other cardiovascular function s Abnormal result of other cardiovascular function s Abnormal result of other cardiovascular function s Reason for Visit Atrial fibrillation, new onset PETER (dyspnea on exertion) Elevated blood pressure reading Fatigue HFrEF (heart failure with reduced ejection fraction) Hyperlipidemia On amiodarone therapy Chief Complaint FATIGUE;DYSPNEA FATIGUE;DYSPNEA Abnormal result of other cardiovascular function s Abnormal result of other cardiovascular function s Abnormal result of other cardiovascular function s AM EKG Abnormal result of other cardiovascular function s S/P [facility] PCI 04/06/23 S/O INR Reason for Visit Atrial fibrillation with rapid ventricular response Essential hypertension Status post coronary artery stent placement Chief Complaint S/O INR S/O INR 6 M FU S/O INR Reason for Visit Atrial fibrillation with rapid ventricular response Essential hypertension Hyperlipidemia Status post coronary artery stent placement Chief Complaint S/O INR S/O INR 6 M FU S/O INR Annual/Physical S/O INR EORDER Reason for Visit Atrial fibrillation with rapid ventricular response Essential hypertension Hyperlipidemia Status post coronary artery stent placement CAD (coronary artery disease) Essential hypertension 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 Skin cyst Chief Complaint 6 M FU S/O INR Annual/Physical S/O INR EORDER S/O INR Reason for Visit Atrial fibrillation with rapid ventricular response Essential hypertension Hyperlipidemia Status post coronary artery stent placement CAD (coronary artery disease) Essential hypertension 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 Skin cyst Chief Complaint S/O INR S/O INR 1 Y FU Reason for Visit Atrial fibrillation with rapid ventricular response Essential hypertension Hyperlipidemia Status post coronary artery stent placement Chief Complaint Admit Date S/O INR September 18, 2024 10:15am S/O INR October 18, 2024 9 :08am Left shoulder pain October 29, 2024 1 1:16am S/O INR November 16, 2024 9:08am S/O INR December 17, 2024 9:1 4am Reason for Visit Admit Date Strain of left pectoralis muscle y 2024 11:16am Chief Complaint Admit Date Left shoulder pain October 29, 2024 1 1:16am S/O INR November 16, 2024 9:08am S/O INR December 17, 2024 9:1 4am 6 M FU January 03, 2025 10: 58am S/O INR January 17, 2025 9:2 6am S/O INR January 31, 2025 9:13am Reason for Visit Admit Date Strain of left pectoralis muscle uar y 2024 11:16am Atrial fibrillation with rapid ventricul ar response January 03, 2025 10:58am Essential hypertension January 03, 2025 10:58am Hyperlipidemia January 03, 2025 10: 58am Status post coronary artery stent placem ent January 03, 2025 10:58am Chief Complaint Admit Date S/O INR December 17, 2024 9:1 4am 6 M FU January 03, 2025 10: 58am S/O INR January 17, 2025 9:2 6am S/O INR January 31, 2025 9:13am S/O INR March 18, 2025 8:25 am Reason for Visit Admit Date Atrial fibrillation with rapid ventricul ar response January 03, 2025 10:58am Essential hypertension January 03, 2025 10:58am Hyperlipidemia January 03, 2025 10: 58am Status post coronary artery stent placem ent January 03, 2025 10:58am Family History No Family History Records Found Relationship Condition Age at Onset Recorded Date/T johan father Myocardial infarction 44 Malignant neoplasm Unknown Advance Directives No Advanced Directives Records Found Advance Directive Response Recorded Date/ Time Living Will No May 10 9:42am Power of Cornice Upholsterer No May 10 022 9:42am Advance Directive Response Recorded Date/ Time Advance Directives No May 8:17am Living Will No June 11, 2022 8:17am Power of Cornice Upholsterer No May 8:17am Advance Directive Response Recorded Date/ Time Advance Directives No May 11:23am Living Will No June 14, 2022 11:23am Power of Cornice Upholsterer No May 11:23am Advance Directive Response Recorded Date/ Time Advance Directives on File No er 2021 8:39am Advance Directives No July 27, 2022 10:30am Living Will No July 27 10:30am Power of Cornice Upholsterer No July 27, 2022 10:30am Advance Directive Response Recorded Date/ Time Advance Directives on File No Octob er 2021 7:39am Advance Directives No July 27, 2022 9:30am Living Will No July 27 9:30am Power of Cornice Upholsterer No July 27, 2022 9:30am Advance Directive Response Recorded Date/ Time Advance Directives No July 27, 2022 10:30am Living Will No July 27 10:30am Power of Cornice Upholsterer No July 27, 2022 10:30am Advance Directive Response Recorded Date/ Time Advance Directives No April 05 7:08am Living Will No April 05, 2023 7:08am Power of Cornice Upholsterer No April 05 7:08am Advance Directive Response Recorded Date/ Time Advance Directives No April 05 6:08am Living Will No April 05, 2023 6:08am Power of Cornice Upholsterer No April 05 6:08am Advance Directive Response Recorded Date/ Time Living Will No August 26 12:40am Do you have a Healthcare Power of Cornice Upholsterer? No August 26, 2024 12:40am Living Will No September 26 5:23am Do you have a Healthcare Power of Cornice Upholsterer? No September 26, 2024 5:23am Living Will No October 27 2:34am Do you have a Healthcare Power of Cornice Upholsterer? No October 27, 2024 2:34am Living Will No November 24, 2024 5:48am Do you have a Healthcare Power of Cornice Upholsterer? No November 24, 2024 5:48am Advance Directives No April 05 7:08am Advance Directive Response Recorded Date/ Time Living Will No April 05, 2023 7:08am Do you have a Healthcare Power of Cornice Upholsterer? No April 05, 2023 7:08am Living Will No January 23, 2025 9:01pm Do you have a Healthcare Power of Cornice Upholsterer? No January 23, 2025 9:01pm Living Will No October 27 2:34am Do you have a Healthcare Power of Cornice Upholsterer? No October 27, 2024 2:34am Living Will No November 24, 2024 5:48am Do you have a Healthcare Power of Cornice Upholsterer? No November 24, 2024 5:48am Living Will No December 24, 2024 10:12pm Do you have a Healthcare Power of Cornice Upholsterer? No December 24, 2024 10:12pm Advance Directives No April 05 7:08am Advance Directive Response Recorded Date/ Time Living Will No April 05, 2023 7:08am Do you have a Healthcare Power of Cornice Upholsterer? No April 05, 2023 7:08am Living Will No January 23, 2025 9:01pm Do you have a Healthcare Power of Cornice Upholsterer? No January 23, 2025 9:01pm Living Will No February 23, 2025 9 :58pm Do you have a Healthcare Power of Cornice Upholsterer? No February 23, 2025 9:58pm Living Will No November 24, 2024 5:48am Do you have a Healthcare Power of Cornice Upholsterer? No November 24, 2024 5:48am Living Will No December 24, 2024 10:12pm Do you have a Healthcare Power of Cornice Upholsterer? No December 24, 2024 10:12pm Advance Directives No April 05 7:08am Summary Purpose Additional Source Comments Goals (unrecognized section and content) Goals may be documented in a n alternate sectionGoals may be documented in an alternate sectionGoals may be documented in an alternate sectionGoals may be documented in an alternate sectionGoals may be documented in an alternate sectionGoals may be documented in an alternate sectionGoals may be documented in an alternate sectionGoals may be documented in an alternate sectionGoals may be documented in an alternate sectionGoals may be documented in an alternate sectionGoals may be documented in an alternate sectionGoals may be documented in an alternate sectionGoals may be documented in an alternate sectionGoals may be documented in an alternate sectionGoals may be documented in an alternate section Care Teams (unrecognized sec tion and content) Team Status: Active Member Role Status Dates Dr. Chauncey George MD Family Provider Active Dr. Prosper Ngo MD Primary Care Provider Active Team Status: Inactive Member Role Status Dates Dr. Prosper Ngo MD Primary Care Provider, Referri ng Provider Active Dixie Haynes PSYCHIATRIC LPN, PSYCHIATRIC LPN-C Attending Provider Active Team Status: Inactive Member Role Status Dates Dr. Prosper Ngo MD Primary Care Provider, Referri ng Provider Active Dr. Isauro Ulloa MD Attending Provider Active Team Status: Active Member Role Status Dates Dr. Prosper Ngo MD Primary Care Provider Active Dr. Isauro Ulloa MD Other Provider Active Dixie Haynes PSYCHIATRIC LPN, PSYCHIATRIC LPN-C Attending Provider Active Team Status: Active Member Role Status Dates Dr. Prosper Ngo MD Primary Care Provider Active Dr. Isauro Ulloa MD Attending Provider, Referring Provider, Other Provider Active Team Status: Active Member Role Status Dates Dr. Prosper Ngo MD Primary Care Provider Active Dr. Isauro Ulloa MD Referring Provider, Other Provide r Active Dr. Edouard Otto DO Attending Provider Active Team Status: Active Member Role Status Dates Dr. Prosper Ngo MD Primary Care Provider Active Dr. Isauro Ulloa MD Attending Provider Active Team Status: Inactive Member Role Status Dates Dr. Prosper Ngo MD Primary Care Provider Active Dr. Isauro Ulloa MD Attending Provider, Referring Pro vider Active Team Status: Inactive Member Role Status Dates Dr. Prosper Ngo MD Primary Care Provider Active Dixie Haynes PSYCHIATRIC LPN, PSYCHIATRIC LPN-C Attending Provider Active Team Status: Inactive Member Role Status Dates Dr. Prosper Ngo MD Primary Care Provider Active Dixie Haynes PSYCHIATRIC LPN, PSYCHIATRIC LPN-C Attending Provider, Referring P rovider Active Team Status: Active Member Role Status Dates Dr. Prosper Ngo MD Primary Care Provider Active Dixie Haynes PSYCHIATRIC LPN, PSYCHIATRIC LPN-C Referring Provider, Other Provi nancy Active Dr. Nicholas Liu MD Attending Provider Active Team Status: Active Member Role Status Dates Dr. Prosper Ngo MD Primary Care Provider Active Dixie Haynes PSYCHIATRIC LPN, PSYCHIATRIC LPN-C Referring Provider, Other Provi nancy Active Dr. Isauro Ulloa MD Attending Provider Active Team Status: Active Member Role Status Dates Dr. Prosper Ngo MD Primary Care Provider Active Dr. Isauro Ulloa MD Referring Provider, Other Provide r Active Dixie Haynes PSYCHIATRIC LPN, PSYCHIATRIC LPN-C Attending Provider Active Team Status: Active Member Role Status Dates Dr. Prosper Ngo MD Primary Care Provider Active Dr. Isauro Ulloa MD Referring Provider, Other Provide r Active Dr. Kwame Encinas MD Attending Provider Active Team Status: Active Member Role Status Dates Dr. Prosper Ngo MD Primary Care Provider Active Dr. Isauro Ulloa MD Admit Provider, Ref erring Provider, Other Provider Active Kristi Arroyo PA, PA Attending Provider Active Team Status: Inactive Member Role Status Dates Dr. Prosper Ngo MD Primary Care Provider Active Dr. Isauro Ulloa MD Admit Provider, Att ending Provider, Referring Provider Active Team Status: Inactive Member Role Status Dates Dr. Prosper Ngo MD Primary Care Provider, Referri ng Provider Active Kristi Arroyo PA, PA Attending Provider Active Team Status: Active Member Role Status Dates Dr. Prosper Ngo MD Primary Care Provider Active Dr. Isauro Ulloa MD Attending Provider, Referring Pro vider Active Team Status: Inactive Member Role Status Dates Dr. Prosper Ngo MD Primary Care Provider Active Kristi Arroyo PA, PA Attending Provider, Referr ing Provider Active Team Status: Inactive Member Role Status Dates Dr. Prosper Ngo MD Primary Care Provider, Attendi ng Provider Active Team Status: Active Member Role Status Dates Dr. Prosper Ngo MD Primary Care Pro vider, Attending Provider, Referring Provider Active Dixie Haynes PSYCHIATRIC LPN, PSYCHIATRIC LPN-C Other Provider Active Team Status: Inactive Member Role Status Dates Dr. Prosper Ngo MD Primary Care Pro vider, Attending Provider, Referring Provider Active Dixie Haynes PSYCHIATRIC LPN, PSYCHIATRIC LPN-C Other Provider Active Team Status: Active Member Role Status Dates Dr. Prosper Ngo MD Primary Care Provider Active Team Status: Inactive Member Role Status Dates Dr. Prosper Ngo MD Primary Care Provider Active Start: September 18, 2024 End: September 18, 2024 Kristi Arroyo PA, PA Attending Provider Active Start: September 18, 2024 End: September 18, 2024 Kristi Arroyo PA, PA Referring Provider Active Start: September 18, 2024 End: September 18, 2024 Team Status: Inactive Member Role Status Dates Dr. Prosper Ngo MD Primary Care Provider Active Start: October 18, 2024 End: October 18, 2024 Kristi Arroyo PA, PA Attending Provider Active Start: October 18, 2024 End: October 18, 2024 Kristi Arroyo PA, PA Referring Provider Active Start: October 18, 2024 End: October 18, 2024 Team Status: Inactive Member Role Status Dates Dr. Prosper Ngo MD Primary Care Provider Active Start: October 29, 2024 End: October 29, 2024 Dr. Prosper Ngo MD Attending Provider Active Start: October 29, 2024 End: October 29, 2024 Team Status: Inactive Member Role Status Dates Dr. Prosper Ngo MD Primary Care Provider Active Start: November 16, 2024 End: November 23, 2024 Kristi Arroyo PA, PA Attending Provider Active Start: November 16, 2024 End: November 23, 2024 Kristi Arroyo PA, PA Referring Provider Active Start: November 16, 2024 End: November 23, 2024 Team Status: Inactive Member Role Status Dates Dr. Prosper Ngo MD Primary Care Provider Active Start: December 17, 2024 End: December 17, 2024 Kristi Arroyo PA, PA Attending Provider Active Start: December 17, 2024 End: December 17, 2024 Kristi Arroyo PA, PA Referring Provider Active Start: December 17, 2024 End: December 17, 2024 Team Status: Inactive Member Role Status Dates Dr. Prosper Ngo MD Primary Care Provider Active Start: January 03, 2025 End: January 03, 2025 Dr. Prosper Ngo MD Referring Provider Active Start: January 03, 2025 End: January 03, 2025 Kristi Arroyo PA, PA Attending Provider Active Start: January 03, 2025 End: January 03, 2025 Team Status: Inactive Member Role Status Dates Dr. Prosper Ngo MD Primary Care Provider Active Start: January 17, 2025 End: January 23, 2025 Kristi Arroyo PA, PA Attending Provider Active Start: January 17, 2025 End: January 23, 2025 Kristi Arroyo PA, PA Referring Provider Active Start: January 17, 2025 End: January 23, 2025 Dixie Haynes PSYCHIATRIC LPN, PSYCHIATRIC LPN-C Other Provider Active Sta rt: January 17, 2025 End: January 23, 2025 Team Status: Inactive Member Role Status Dates Dr. Prosper Ngo MD Primary Care Provider Active Start: January 31, 2025 End: January 31, 2025 Kristi Arroyo PA, PA Attending Provider Active Start: January 31, 2025 End: January 31, 2025 Kristi Arroyo PA, PA Referring Provider Active Start: January 31, 2025 End: January 31, 2025 Dixie Haynes PSYCHIATRIC LPN, PSYCHIATRIC LPN-C Other Provider Active Sta rt: January 31, 2025 End: January 31, 2025 Team Status: Active Member Role/Relationship Status Dates Dr. Prosper Ngo MD Primary Care Provider Active Team Status: Inactive Member Role/Relationship Status Dates Dr. Prosper Ngo MD Primary Care Provider Active Start: December 17, 2024 End: December 17, 2024 Kristi Arroyo PA, PA Attending Provider Active Start: December 17, 2024 End: December 17, 2024 Kristi Arroyo PA, PA Referring Provider Active Start: December 17, 2024 End: December 17, 2024 Team Status: Inactive Member Role/Relationship Status Dates Dr. Prosper Ngo MD Primary Care Provider Active Start: January 03, 2025 End: January 03, 2025 Dr. Prosper Ngo MD Referring Provider Active Start: January 03, 2025 End: January 03, 2025 Kristi Arroyo PA, PA Attending Provider Active Start: January 03, 2025 End: January 03, 2025 Team Status: Inactive Member Role/Relationship Status Dates Dr. Prosper Ngo MD Primary Care Provider Active Start: January 17, 2025 End: January 23, 2025 Kristi Arroyo PA, PA Attending Provider Active Start: January 17, 2025 End: January 23, 2025 Kristi Arroyo PA, PA Referring Provider Active Start: January 17, 2025 End: January 23, 2025 Dixie Haynes PSYCHIATRIC LPN, PSYCHIATRIC LPN-C Other Provider Active Sta rt: January 17, 2025 End: January 23, 2025 Team Status: Inactive Member Role/Relationship Status Dates Dr. Prosper Ngo MD Primary Care Provider Active Start: January 31, 2025 End: January 31, 2025 Kristi Arroyo PA, PA Attending Provider Active Start: January 31, 2025 End: January 31, 2025 Kristi Arroyo PA, PA Referring Provider Active Start: January 31, 2025 End: January 31, 2025 Dixie Haynes PSYCHIATRIC LPN, PSYCHIATRIC LPN-C Other Provider Active Sta rt: January 31, 2025 End: January 31, 2025 Team Status: Inactive Member Role/Relationship Status Dates Dr. Prosper Ngo MD Primary Care Provider Active Start: March 18, 2025 End: March 18, 2025 Kristi Arroyo PA, PA Attending Provider Active Start: March 18, 2025 End: March 18, 2025 Kristi Arroyo PA, PA Referring Provider Active Start: March 18, 2025 End: March 18, 2025 Dixie Haynes PSYCHIATRIC LPN, PSYCHIATRIC LPN-C Other Provider Active Sta rt: March 18, 2025 End: March 18, 2025 Electric Motor Assembler Relationship Specialty Start Date End Date Prosper Ngo MD [address] [place] [address] PCP - General Internal Medicine 02/06/25 Reason for Visit (unrecogniz ed section and content) Reason Comments Penis Injury Fracture - happened in September, still not shaped properly Specialty Diagnoses / Procedures Referred By Contac t Referred To Contact Urology Diagnoses Penile fracture Prosper Ngo MD [address] [place] [address] [place] [address] Phone: tel: fax:8 Cuauhtemoc Nevarez MD [address] [place] [address] Phone: tel: fax: Referral ID Status Reason Start Date Expiration Date V isits Requested Visits Authorized [id number] Pending Review 02/06/2025 02/06/2026 1 1 (unrecognized sect ion and content) No Status Records FoundNo Status Records Found INFORMATION SOURCE (unrecogn ized section and content) DATE CREATED AUTHOR 03/27/2025 [facility] DATE CREATED AUTHOR AUTHOR'S ORGANIZ ATION 03/29/2025 [facility] FOR RECORDS PERTAINING TO PATIENTS WHO ARE OR HAVE BEEN ENROLLED IN A CHEMICAL DEPENDENCY/SUBSTANCEABUSE PROGRAM, SOME INFORMATION MAY BE OMITTED. This clinical summary was aggregated from multiple sources. Caution should be exercised in using it in the provision of clinical care. This summary normalizes information from multiple sources, and as a consequence, information in this document may materially change the coding, format and clinical context of patient data. In addition, data may be omitted in some cases. CLINICAL DECISIONS SHOULD BE BASED ON THE PRIMARY CLINICAL RECORDS. [employer] provides no warranty or guarantee of the accuracy or completeness of information in this document.
--- NOTE | 2025-04-06 10:46 | EX.ED.DYSGE1 ---
HPI History of Present Illness Chief Complaint: Palpitations Informant: patient Narrative Narrative: Patient is a 69-year-old male with history of atrial fibrillation and (status post cardioversion and states he has been in normal sinus rhythm for the past 2 years), on chronic Coumadin therapy and ACS presenting with shortness of breath and elevated heart rate. Patient notes he also has a history of penile fracture and upon following up with urology was to start on tamsulosin. This was a week ago. Over the past few days he has had increased shortness of breath and is not feeling right. He describes it more as getting winded just doing his regular activities. Checked his vital signs today and his heart rate was 153 which is approximate come to the emergency room. States he feels like the last time he was in atrial fibrillation. Notes his most recent INR was 2.2. Does follow with cardiology here. Was taken off amiodarone about 6 months ago but denies any other recent medication changes. No other complaints or concerns at this time. States his symptoms worsened last night but have been going on for couple days he does not know exactly when he went into atrial fibrillation again. Denies any swelling of his legs, chest pain, cough, fever or chills or GI/acute symptoms. [facility] Medical History Penile fracture Strain of left pectoralis muscle Dermoid cyst of skin of back Essential hypertension CAD (coronary artery disease) Prostate cancer screening Marijuana use ETOH abuse HFrEF (heart failure with reduced ejection fraction) Cardiomyopathy Atrial fibrillation with rapid ventricular response (05/10/22) Irregular heart beat Arthritis Seasonal allergies GERD (gastroesophageal reflux disease) Home Medications ?Medication ?Instructions ?Recorded ?Last Taken ?Type famotidine 20 mg tablet (Acid 20 mg PO DAILY #90 tabs 04/23/24 04/06/25 Rx Lithographic Press Operator Apprentice (famotidine)) losartan 50 mg tablet 50 mg PO QDAY #90 tabs 07/12/24 04/06/25 Rx atorvastatin 40 mg tablet 40 mg PO QHS #90 tabs 12/27/24 04/06/25 Rx metoprolol tartrate 25 mg tablet 25 mg PO BID #180 tabs 01/28/25 04/06/25 Rx amlodipine 5 mg tablet 5 mg PO DAILY #90 tabs 03/22/25 04/06/25 Rx clopidogrel 75 mg tablet (Plavix) 75 mg PO DAILY #90 tabs 03/22/25 04/06/25 Rx warfarin 2 mg tablet 2 mg PO .COMPLEX #180 tabs 04/03/25 04/05/25 Rx tamsulosin 0.4 mg capsule 0.4 mg PO QPM 04/06/25 04/05/25 History Allergy/AdvReac Type Severity Reaction Status Date / Time codeine Allergy Swelling Verified 04/06/25 09:58 lisinopril AdvReac Mild Cough Verified 04/06/25 09:58 Family History Father Myocardial infarction, Onset Age: 45 Cancer prostate Surgical History Status post coronary artery stent placement History of cardioversion (06/14/22) History of facial surgery History of surgery on arm Social History Smoking Status: Former smoker how long ago did patient quit smokin alcohol intake: never substance use type: marijuana what type of physical activity do you participate in: bicycling frequency: daily ROS ROS ED Constitutional Constitutional ED: Denies chills, fever(s) or sweats ENT ENT ED: Denies sore throat Cardiovascular Cardiovascular: Denies chest pain or palpitations Respiratory/Chest Respiratory/Chest: Reports dyspnea on exertion; Denies cough or sputum Gastrointestinal Gastrointestinal: Denies abdominal pain, nausea or vomiting Musculoskeletal Musculoskeletal: Denies arthralgias or myalgias Neurologic Neurologic: Denies weakness Hematologic/Lymphatic Hematologic/Lymphatic: Reports easy bleeding, easy bruising and other Details: on Coumadin EXAM Physical Exam Const Vital Signs: 04/06/25 09:58 04/06/25 11:00 04/06/25 11:27 Temperature 98.2 F Temperature Source Oral Pulse Rate 133 H 78 108 H Respiratory Rate 18 18 15 Blood Pressure 154/109 H 124/69 H 125/94 H Blood Pressure Mean 124 87 104 Pulse Ox 99 98 Oxygen Delivery Method Room Air 04/06/25 12:11 04/06/25 13:00 04/06/25 13:24 Temperature 98 F Temperature Source Pulse Rate 89 96 97 Respiratory Rate 18 18 14 Blood Pressure 124/78 H 124/77 H 122/92 H Blood Pressure Mean 93 92 102 Pulse Ox 98 98 100 Oxygen Delivery Method Room Air Room Air Positive well nourished and well developed General Appearance ED: well developed and NAD; Negative for pallor HEENT Reports moist mucous membranes Eyes General Eye ED: Negative for pale conjunctiva Neck supple and no JVD Chest Wall inspection of chest normal and palpation of chest normal Resp normal respiratory effort and clear to auscultation bilaterally Auscultation: Negative for rhonchi or wheezes Cardio no murmurs Rate: tachycardic Rhythm: abnormal rhythm irregularly irregular GI normal to inspection, nondistended, normoactive bowel sounds and non-tender Extremity normal to inspection General Extremety ED: Negative for edema General Extremity: Negative for edema Neuro oriented x3 Sensorium / Orientation: alert Motor Exam: Negative for general weakness Psych mental status grossly normal Skin no rashes or lesions noted and no wounds General Skin Exam: Negative for pallor MDM MDM MDM Narrative Medical decision making narrative: Patient evaluated for tachycardia and worsening dyspnea on exertion. Found to be in atrial fibrillation with RVR. Did not take his morning medications. Differential includes A-fib with RVR, subtherapeutic INR, symptomatic anemia, RUTH, dehydration and ACS. EKG does not show acute ischemic changes but given his dyspnea on exertion and history of CAD will check troponins. Will give IV metoprolol for further rate control. Patient is adequately controlled IV metoprolol. Remains hemodynamically stable in emergency room. Continues to be in atrial fibrillation. Cardiac workup and is largely negative with no signs of acute ischemia. High-sensitivity troponins are 12 and 14. Low suspicion for ACS. INR is mildly subtherapeutic at 1.9. Do not think he is a candidate for cardioversion at this time. Will give him oral metoprolol. Did discuss with cardiology, Dr. Mcclain, who is agreeable with outpatient follow-up and having the patient double his metoprolol. Family states he has plenty of metoprolol at home. Is given return precautions. Discharged home in stable and improved condition. Lab Data Attestation: I reviewed the patient's lab results. Labs: Laboratory Results - last 24 hr 04/06/25 04/06/25 10:10 12:14 WBC 10.0 RBC 4.94 Hgb 15.7 Hct 44.2 MCV 89.5 MCH 31.8 MCHC 35.5 RDW Std Deviation 41.3 RDW Coeff of Chivo 12.6 Plt Count 208 MPV 9.0 Immature Gran % (Auto) 0.500 Neut % (Auto) 83.6 H Lymph % (Auto) 9.6 L Cecil % (Auto) 5.5 Eos % (Auto) 0.5 Baso % (Auto) 0.3 Absolute Neuts (auto) 8.4 H Absolute Lymphs (auto) 0.96 Nucleated RBC % 0 PT 22.1 H INR 1.9 Sodium 133 Potassium 4.2 Chloride 101 Carbon Dioxide 19.9 L Anion Gap 12 BUN 15 Creatinine 0.81 Estim Creat Clear Calc 87.62 Est GFR (MDRD) Non-Af 95 BUN/Creatinine Ratio 17.9 Glucose 117 H Calcium 9.1 Troponin T High Sens 12 Troponin T Hi Sens 2 Hr 14 Radiography Chest X-Ray - ED: 2 View, Read by ED Physician, Read by Radiologist and No Acute Disease Diagnostic Testing: Clinical Impression(s) from Imaging Studies Chest X-Ray 04/06/25 10:20 IMPRESSION: NO ACUTE FINDINGS. Reading Location: [facility] Rhythm Strip Rhythm Strip: A-fib Rate: 110 Ectopy: None EKG Initial EKG: Attestation: I personally reviewed and interpreted this EKG as follows: Interpretation: Atrial Fibrillation Comments: Atrial fibrillation with RVR at a rate of 106 bpm Left axis deviation Normal ST segments Normal intervals Compared to prior EKG patient is not have any acute ischemic changes but is now in atrial fibrillation Discharge Plan Triage Chief Complaint: Palpitations ED Provider: Alyssa Pham Dx/Rx/DC Orders Clinical Impression: Atrial fibrillation with rapid ventricular response, Status post coronary artery stent placement Instructions: ED Atrial Flutter Prescriptions: No Action tamsulosin 0.4 mg capsule 0.4 mg PO QPM famotidine [Acid Lithographic Press Operator Apprentice (famotidine)] 20 mg tablet 20 mg PO DAILY Qty: 90 3RF losartan 50 mg tablet 50 mg PO QDAY Qty: 90 3RF atorvastatin 40 mg tablet 40 mg PO QHS Qty: 90 3RF metoprolol tartrate 25 mg tablet 25 mg PO BID Qty: 180 3RF amlodipine 5 mg tablet 5 mg PO DAILY Qty: 90 3RF clopidogrel [Plavix] 75 mg tablet 75 mg PO DAILY Qty: 90 3RF warfarin 2 mg tablet 2 mg PO .COMPLEX Qty: 180 3RF Rx Instructions: 2 mg orally Take 1 tablet Mondays and Wednesdays, and TWO tablets together to = 4mg all other days of the week, or as directed. Please give extra tablets in case dose changes; Primary Care Provider: Gladis Rodgers Referrals: Isauro Ulloa MD [Med Staff - Active Staff] - Gladis Rodgers MD [Primary Care Provider] - Activity Restrictions/Additional Instructions: Please call the cardiology office for follow-up this week. Let them know you are seen in the ER. You were treated for atrial fibrillation with RVR. You were given IV metoprolol and then instructed to double your metoprolol and now take 50 mg in the morning and 50 mg in the evening until told otherwise by cardiology. If your heart rate is going below 50, you are becoming lightheaded or your blood pressure is going below 100 for the top number (systolic) please go back down to your normal 25 mg dose. Your INR was slightly low at 1.9. Please take an extra dose of your warfarin tonight as well Print Language: Hungarian Disposition Disposition: Home, Self Care Discharge Date/Time: 04/06/25 13:25
[2025-04-06 10:56] LABS: Anion Gap 12 (5-15); BUN 15 mg/dL (4-19); BUN/Creat Ratio 17.9 RATIO (10-20); Calcium,Total 9.1 mg/dL (7.6-11.0); Carbon Dioxide 19.9 mmol/L (21.0-32.0); Chloride 101 mmol/L (98-108); Estimated Creatinine Clearance 87.62 ml/min (50-250); Glucose 117 mg/dL (70-99); Potassium 4.2 mmol/L (3.3-5.1)
[2025-04-06 10:57] LABS: Troponin T High Sensitivity 12 ng/L (<=22)
[2025-04-06 11:00] VITALS: BP 124/69; PULSE 78; RESP 18; O2SAT 98
[2025-04-06 11:27] VITALS: BP 125/94; PULSE 108; RESP 15
[2025-04-06 12:11] VITALS: BP 124/78; PULSE 89; RESP 18; O2SAT 98
[2025-04-06 12:55] LABS: Troponin T High Sens 2 HR 14 ng/L (<=22)
[2025-04-06 13:00] VITALS: BP 124/77; PULSE 96; RESP 18; O2SAT 98
[2025-04-06 13:24] VITALS: BP 122/92; PULSE 97; RESP 14; TEMP 36.6; O2SAT 100
== END 2025-04-06 13:25 | disposition home or self-care (01) ==
PROVIDERS: Emergency Provider Emergency Medicine; PCP Internal Medicine; Visit Provider Emergency Medicine
DX: I48.91 Unspecified atrial fibrillation (principal); I50.22 Chronic systolic (congestive) heart failure; I11.0 Hypertensive heart disease with heart failure; I42.9 Cardiomyopathy, unspecified; I25.10 Atherosclerotic heart disease of native coronary artery without angina pectoris; Z79.899 Other long term (current) drug therapy; Z79.01 Long term (current) use of anticoagulants; Z95.5 Presence of coronary angioplasty implant and graft; Z87.891 Personal history of nicotine dependence
CPT/HCPCS: 71046; 80048; 84484; 85025; 85610; 93005; 96374; 96376; 99283; A4216

== ENCOUNTER 2025-04-19 08:11 | Outpatient (RCR) | payer MEDICARE, SELFPAY ==
[2025-04-12 08:31] LABS: INR Fingerstick 2.9
[2025-04-19 08:20] LABS: INR Fingerstick 2.4
== END 2025-04-25 21:09 | disposition home or self-care (01) ==
LOC: LAB 08:11
PROVIDERS: PCP Internal Medicine; Referring Provider Physician Assistant Medical; Visit Provider Physician Assistant Medical
DX: Z79.01 Long term (current) use of anticoagulants (principal)
CPT/HCPCS: 36416; 85610

== ENCOUNTER 2025-05-02 13:38 | Outpatient (RCR) | payer MEDICARE, SELFPAY ==
[2025-04-26 09:09] LABS: INR Fingerstick 2.7
[2025-05-02 13:46] LABS: INR Fingerstick 2.2
== END 2025-05-02 18:00 | disposition home or self-care (01) ==
LOC: LAB 13:38
PROVIDERS: PCP Internal Medicine; Referring Provider Physician Assistant Medical; Visit Provider Physician Assistant Medical
DX: Z79.01 Long term (current) use of anticoagulants (principal); I48.0 Paroxysmal atrial fibrillation
CPT/HCPCS: 36416; 85610

== ENCOUNTER → 2025-05-02 | Outpatient (CLI) | payer MEDICARE, SELFPAY ==
--- NOTE | 2025-05-02 12:47 | ECHOD_ITS ---
Reason For Study Reason For Study: ATRIAL FIB-FLUTTER Procedure This was a 2D Doppler, Color Flow transthoracic echocardiogram. Exam performed in department. Left Ventricle Normal LV size. Left ventricular systolic function is normal. The left ventricular ejection fraction is 65 %. No regional wall motion abnormalities noted. Right Ventricle Normal RV size. Normal systolic function. Atria Normal left atrium. Normal right atrium. Mitral Valve Normal mitral valve. Tricuspid Valve Normal tricuspid valve. Mild (1+) tricuspid valve insufficiency. Pulmonary artery systolic pressure is 35 mmHg. Aortic Valve Trisinus/trileaflet aortic valve. Pulmonic Valve Normal pulmonic valve. Great Vessels Normal aortic root. The pulmonary artery is normal size. Inferior vena cava collapse with respiration. Pericardium/Pleural No pericardial effusion. MMode/2D Measurements & Calculations LVIDd: 5.3 cm IVSd: 1.0 cm Ao root diam: 3.3 cm LVIDs: 3.4 cm LVPWd: 0.99 cm RVDd: 3.3 cm FS: 36.6 % LAV(MOD-bp): 41.4 ml LVAd ap4: 26.3 cm2 SV(MOD-sp4): 46.8 ml LAV(MOD-bp) Indexed: 20.5 ml/m2 LVLd ap4: 7.5 cm SI(MOD-sp4): 23.2 ml/m2 LAV(MOD-sp2): 42.6 ml EDV(MOD-sp4): 76.7 ml LAV(MOD-sp4): 35.5 ml EDV(sp4-el): 78.1 ml LVAs ap4: 14.0 cm2 LVLs ap4: 6.1 cm ESV(MOD-sp4): 29.8 ml ESV(sp4-el): 27.6 ml EF(MOD-sp4): 61.1 % EF(sp4-el): 64.7 % SV(sp4-el): 50.5 ml LA A4 area: 15.6 cm2 LA dimension(2D): 3.3 cm RA A4 area: 15.8 cm2 TAPSE: 2.3 cm Time Measurements MV dec time: 0.21 sec Doppler Measurements & Calculations MV E max joshua: 52.7 cm/sec Lat Peak E' Joshua: 11.3 cm/sec Med Peak E' Joshua: 10.1 cm/sec MV A max joshua: 71.2 cm/sec E/E' lat: 4.7 E/E' med: 5.2 MV E/A: 0.74 Ao V2 max: 134.5 cm/sec LV V1 max: 110.4 cm/sec PA V2 max: 91.1 cm/sec Ao max P.2 mmHg LV V1 max P.9 mmHg TR max joshua: 276.9 cm/sec TR max P.7 mmHg ECHO/Echo Complete Interpretation Summary Normal LV size. Left ventricular systolic function is normal. The left ventricular ejection fraction is 65 %. Pulmonary artery systolic pressure is 35 mmHg. Structurally normal valves. Ordering Physician: Joe Parra Referring Physician: [employer] Performed By: Yakelin Rey RDCS
== END | disposition home or self-care (01) ==
LOC: CVS 12:47
PROVIDERS: PCP Internal Medicine; Referring Provider Nurse Practitioner Family; Visit Provider Nurse Practitioner Family
DX: R06.09 Other forms of dyspnea (principal); I48.0 Paroxysmal atrial fibrillation; I10 Essential (primary) hypertension; E78.5 Hyperlipidemia, unspecified; Z95.5 Presence of coronary angioplasty implant and graft
CPT/HCPCS: 93306

== ENCOUNTER 2025-05-06 07:57 | Emergency (ER) | payer MEDICARE, SELFPAY ==
[2025-05-06] VITALS (7 sets, daily range): BP systolic 97–133; BP diastolic 62–105; PULSE 58–110; RESP 14–16; TEMP 36.6–36.8; O2SAT 94–99; BMI 26.6
--- NOTE | 2025-05-06 08:34 | EKG12_ITS ---
Test Reason : REPEAT Blood Pressure : */* mmHG Vent. Rate : 61 BPM Atrial Rate : 61 BPM P-R Int : 162 ms QRS Dur : 84 ms QT Int : 440 ms P-R-T Axes : 51 -39 26 degrees QTcB Int : 442 ms Normal sinus rhythm Left axis deviation Nonspecific ST abnormality Abnormal ECG Confirmed by John Dumont ([id number]), film editor supervisor KEV JIMENES ([id number]) on 05/07/2025 11:40:04 AM Referred By: Confirmed By: John Dumont
--- NOTE | 2025-05-06 08:34 | EKG12_ITS ---
Test Reason : REPEAT Blood Pressure : */* mmHG Vent. Rate : 61 BPM Atrial Rate : 61 BPM P-R Int : 162 ms QRS Dur : 84 ms QT Int : 440 ms P-R-T Axes : 51 -39 26 degrees QTcB Int : 442 ms Normal sinus rhythm Left axis deviation Nonspecific ST abnormality Abnormal ECG Confirmed by John Dumont ([id number]), industrial editor KEV JIMENES ([id number]) on 05/07/2025 11:40:04 AM Referred By: Confirmed By: John Dumont
--- NOTE | 2025-05-06 08:37 | EDS_ITS ---
HPI History of Present Illness Chief Complaint: Palpitations Informant: patient and spouse/S.O. Narrative Narrative: 69-year-old male with a history of paroxysmal atrial fibrillation states he felt like he went into A-fib yesterday and it persisted into today. Feels like his heart is racing and fluttering. Denies any chest discomfort, dyspnea, lightheadedness, syncope, edema in his legs or orthopnea. Was resting when it started. It is making him feel tired. He states this happened several weeks ago, he was on Flomax at the time and thought it might be related so we discontinued that at that point has not been on it since and no other new medications or other medicine changes. Denies any recent illness or injury in the last several days. States he has been cardioverted for this couple times in the past but the last time prior to March was a couple years. He states he knows when he goes into A-fib. He has been anticoagulated on warfarin, stating that he is on that 1 because of the cost of the newer medications; he has never had a valve replacement. He has had a stent in his heart in the past. Last INR this past week was between 2 and 3. [facility] Medical History Penile fracture Strain of left pectoralis muscle Dermoid cyst of skin of back Essential hypertension CAD (coronary artery disease) Prostate cancer screening Marijuana use ETOH abuse HFrEF (heart failure with reduced ejection fraction) Cardiomyopathy Atrial fibrillation with rapid ventricular response (05/10/22) Irregular heart beat Arthritis Seasonal allergies GERD (gastroesophageal reflux disease) Home Medications ?Medication ?Instructions ?Recorded ?Last Taken ?Type losartan 50 mg tablet 50 mg PO QDAY #90 tabs 07/1205/06/25 Rx atorvastatin 40 mg tablet 40 mg PO QHS #90 tabs 05/05/25 Rx amlodipine 5 mg tablet 5 mg PO DAILY #90 tabs 03/2205/06/25 Rx clopidogrel 75 mg tablet (Plavix) 75 mg PO DAILY #90 t abs 03/22/25 05/06/25 Rx warfarin 2 mg tablet 2 mg PO .COMPLEX #180 tabs 0 04/03/25 05/05/25 Rx metoprolol tartrate 25 mg tablet 50 mg (2 x 25 mg) PO BID #1 TAB 08/11/25 08/11/25 Rx Allergy/AdvReac Type Severity Reaction Status Date / Time codeine Allergy Swelling Verified 05/06/25 07:58 lisinopril AdvReac Mild Cough Verified 05/06/25 07:58 Family History Father Myocardial infarction, Onset Age: 45 Cancer prostate Surgical History Status post coronary artery stent placement History of cardioversion (06/14/22) History of facial surgery History of surgery on arm Social History Smoking Status: Former smoker how long ago did patient quit smokin alcohol intake: never substance use type: marijuana what type of physical activity do you participate in: bicycling frequency: daily ROS ROS ED Constitutional Constitutional ED: Denies chills or fever(s) Eyes Eyes: Denies change in vision or diplopia ENT ENT ED: Denies rhinorrhea or sore throat Cardiovascular Cardiovascular: Reports palpitations; Denies chest pain or syncope Respiratory/Chest Respiratory/Chest: Denies cough or dyspnea Gastrointestinal Gastrointestinal: Denies abdominal pain, diarrhea, nausea or vomiting Genitourinary Genitourinary ED: Denies dysuria or hematuria Musculoskeletal Musculoskeletal: Denies back pain or neck pain Integumentary Denies abscess or rash Neurologic Neurologic: Denies headache(s), paresthesias or weakness Psychiatric Psychiatric: Denies anxiety or suicidal thoughts EXAM Physical Exam Const Vital Signs: 05/06/25 07:57 05/06/25 07:57 05/06/25 08:10 Temperature 98 F Temperature Source Temporal Pulse Rate 77 110 H Pulse Rate [1 (Initial Baseline)] Pulse Rate [2] Respiratory Rate 14 Respiratory Rate [1 (Initial Baseline)] Respiratory Rate [2] Respiratory Effort Normal Blood Pressure 133/90 H Blood Pressure [1 (Initial Baseline)] Blood Pressure [2] Blood Pressure Mean 104 Baseline BP Pulse Ox 98 Oxygen Delivery Method Room Air Oxygen Delivery Method [1 (Initial Baseline)] Oxygen Delivery Method [2] EtCo2 - Document during CPR and with ROSC EtCo2 - Document during CPR and with ROSC [1 (Initial Baseline)] EtCo2 - Document during CPR and with ROSC [2] 05/06/25 09:53 05/06/25 09:54 05/06/25 09:54 Temperature 97.8 F Temperature Source Pulse Rate 101 H Pulse Rate [1 (Initial Baseline)] 97 Pulse Rate [2] 60 Respiratory Rate 16 Respiratory Rate [1 (Initial Baseline)] 16 Respiratory Rate [2] 16 Respiratory Effort Blood Pressure 133/96 H Blood Pressure [1 (Initial Baseline)] 129/105 H Blood Pressure [2] 101/71 Blood Pressure Mean Baseline BP 133/96 Pulse Ox 99 Oxygen Delivery Method Room Air Oxygen Delivery Method [1 (Initial Baseline)] Room Air Oxygen Delivery Method [2] Room Air EtCo2 - Document during CPR and with ROSC 32 31 EtCo2 - Document during CPR and with ROSC [1 (Initial Baseline)] 32 EtCo2 - Document during CPR and with ROSC [2] 34 05/06/25 10:00 05/06/25 10:05 05/06/25 10:10 Temperature Temperature Source Pulse Rate 60 59 L 59 L Pulse Rate [1 (Initial Baseline)] Pulse Rate [2] Respiratory Rate 16 16 16 Respiratory Rate [1 (Initial Baseline)] Respiratory Rate [2] Respiratory Effort Blood Pressure 101/71 97/74 103/68 Blood Pressure [1 (Initial Baseline)] Blood Pressure [2] Blood Pressure Mean Baseline BP Pulse Ox 94 96 98 Oxygen Delivery Method Room Air Room Air Room Air Oxygen Delivery Method [1 (Initial Baseline)] Oxygen Delivery Method [2] EtCo2 - Document during CPR and with ROSC 33 32 35 EtCo2 - Document during CPR and with ROSC [1 (Initial Baseline)] EtCo2 - Document during CPR and with ROSC [2] 05/06/25 10:15 Temperature Temperature Source Pulse Rate 61 Pulse Rate [1 (Initial Baseline)] Pulse Rate [2] Respiratory Rate 16 Respiratory Rate [1 (Initial Baseline)] Respiratory Rate [2] Respiratory Effort Blood Pressure 99/71 Blood Pressure [1 (Initial Baseline)] Blood Pressure [2] Blood Pressure Mean Baseline BP Pulse Ox 97 Oxygen Delivery Method Room Air Oxygen Delivery Method [1 (Initial Baseline)] Oxygen Delivery Method [2] EtCo2 - Document during CPR and with ROSC 33 EtCo2 - Document during CPR and with ROSC [1 (Initial Baseline)] EtCo2 - Document during CPR and with ROSC [2] Positive well nourished and well developed Constitutional Narrative: Well-appearing, alert, conversive General Appearance ED: well developed and NAD HEENT Reports moist mucous membranes normocephalic and atraumatic Eyes PERRL and EOMs intact bilaterally Neck full ROM and supple Resp normal respiratory effort and clear to auscultation bilaterally Cardio no murmurs Rate: tachycardic Rhythm: abnormal rhythm irregularly irregular GI non-tender and non-distended Auscultation: normoactive bowel sounds Palpation: soft Back/Spine no CVA tenderness General Back: other FROM Extremity normal to inspection General Extremety ED: Negative for edema, pulses abnormal or tenderness General Extremity: Negative for edema or pulses abnormal Neuro oriented x3, CN's II-XII intact bilaterally and no sensory deficits noted Sensorium / Orientation: awake and alert Motor Exam: strength 5/5 throughout Skin no rashes or lesions noted and no wounds MDM MDM MDM Narrative Medical decision making narrative: Patient had an outpatient echo 4 days ago that had an EF of 65% structurally normal valves and was really unremarkable except for mildly elevated pulmonary pressure. No evidence of any thromboembolic abnormalities noted. I did some labs here verifying that his INR is therapeutic. Patient is requesting cardiovers ion, he has been n.p.o. all night and is here early in the morning, he understands that given his history of paroxysmal atrial fibrillation, that if we cardiovert him it is possible that he could go right back into atrial fibrillation after leaving the hospital and still wants me to cardiovert him which I do not think is unreasonable since he has been chronically anticoagulated and knows when he went into it less than 48 hours ago, and just had an echo showing no clots. Patient was cardioverted successfully. He was monitored while he recovered and he felt better and there were no events. Repeat EKG shows sinus rhythm no acute injury pattern, rate of 61. Patient states he used to be on metoprolol tartrate 25 mg twice daily, since his last visit here to the ER for [id number] issues several weeks ago he states he has doubled it and has been taking 50 mg twice daily. Cardiology in agreement we will leave that alone and he can follow-up as an outpatient. History & Record Review Discussion w/independent historian: Patient and Family Lab Data Attestation: I reviewed the patient's lab results. Labs: Laboratory Results - last 24 hr 05/06/25 08:35 WBC 9.9 RBC 4.99 Hgb 15.6 Hct 44.3 MCV 88.8 MCH 31.3 MCHC 35.2 RDW Std Deviation 41.9 RDW Coeff of Chivo 12.8 Plt Count 263 MPV 9.4 Immature Gran % (Auto) 0.400 Neut % (Auto) 80.4 H Lymph % (Auto) 11.6 L Emery % (Auto) 6.1 Eos % (Auto) 0.9 Baso % (Auto) 0.6 Absolute Neuts (auto) 8.0 H Absolute Lymphs (auto) 1.15 Nucleated RBC % 0 PT 26.2 H INR 2.3 Sodium 133 Potassium 4.1 Chloride 100 Carbon Dioxide 19.5 L Anion Gap 13 BUN 13 Creatinine 0.86 Estim Creat Clear Calc 82.53 Est GFR (MDRD) Non-Af 93 BUN/Creatinine Ratio 15.3 Glucose 115 H Calcium 9.0 Rhythm Strip Rhythm Strip: A-fib Rate: 110 Ectopy: None EKG Initial EKG: Attestation: I personally reviewed and interpreted this EKG as follows: Interpretation: No Acute Injury Pattern and Atrial Fibrillation (With RVR 115) Prior EKG tracings: available for review Prior: Unchanged Management Discussion w/another healthcare provider: Switchboard And Control Room Operator Procedures Procedural Sedation 1 (Initial Baseline): Consent Signed: Yes Any Problems With Anesthesia: No (except I didn't like etomidate) Sedation medication: Propofol Dose: 100 Route: IV Total Moderate Sedation Units: 12 Maliampati Score: Class II ASA Classification: II Comment:: On monitor with prophylactic nasal cannula oxygenation and IV fluids, end-tidal CO2 monitoring, airway equipment at the bedside. Tolerated well with no complications. Pretreated with 50 mcg of fentanyl IV for pain. Other Procedures Procedure(s): Cardioversion: After sedated patient successfully with propofol, patient was cardioverted successfully after single anteroposterior shock of biphasic energy 200 J synchronized. Tolerated well with no complications. Critical Care Time Critical Care Time: Yes Critical care time (excluding procedures): 30-74 minutes (32 min, not including procedure time), Including time spent:, Discussing w/Patient &/or Family/Tactical/Mobile Watch Officer, Discussing w/Consultants and Performing Direct Patient Care at Bedside Discharge Plan Triage Chief Complaint: Palpitations ED Provider: Marquise Fernandez Dx/Rx/DC Orders Clinical Impression: Atrial fibrillation with rapid ventricular response, Paroxysmal atrial fibrillation, Warfarin-induced coagulopathy Instructions: AFib Dc, Cardioversion Dc Prescriptions: Continued losartan 50 mg tablet 50 mg PO QDAY Qty: 90 3RF atorvastatin 40 mg tablet 40 mg PO QHS Qty: 90 3RF amlodipine 5 mg tablet 5 mg PO DAILY Qty: 90 3RF clopidogrel [Plavix] 75 mg tablet 75 mg PO DAILY Qty: 90 3RF warfarin 2 mg tablet 2 mg PO .COMPLEX Qty: 180 3RF Protocol: Dose Management Condition: Tuesday Dose/Route: 4 mg Instruction: 2 x 2 mg tablets Condition: Tuesday Dose/Route: 4 mg Instruction: 2 x 2 mg tablets Condition: Tuesday Dose/Route: 4 mg Instruction: 2 x 2 mg tablets Condition: Tuesday Dose/Route: 4 mg Instruction: 2 x 2 mg tablets Condition: Dose/Route: 4 mg Instruction: 2 x 2 mg tablets Condition: Tuesday Dose/Route: 4 mg Instruction: 2 x 2 mg tablets Condition: Tuesday Dose/Route: 2 mg Instruction: 1 x 2 mg tablet Protocol Text: Adjustment Start Date: 05/02/25 INR Value: 2.2 INR Date: 05/02/25 Recheck Date: 05/23/25 Additional Instructions: Spoke to patient to continue warfarin 4mg six times/week Tue-Tue and warfarin 2mg on Sat. Recheck INR in 3 weeks. Rx Instructions: 2 mg orally Take 1 tablet Mondays and Wednesdays, and TWO tablets together to = 4mg all other days of the week, or as directed. Please give extra tablets in case dose changes; Changed metoprolol tartrate 25 mg tablet 50 mg PO BID Qty: 1 0RF Primary Care Provider: Gladis Rodgers Referrals: Isauro Ulloa MD [Med Staff - Active Staff] - As soon as possible Print Language: Syrian Disposition Disposition: Home, Self Care
[2025-05-06 08:54] LABS: Hematocrit 44.3 % (40-54); Hemoglobin 15.6 g/dL (13.0-16.5); Immature Granulocytes Count 0.040 X10^3/uL (0.0-0.0); Mean Corp Hgb Conc 35.2 g/dL (32-36); Mean Corpuscular Volume 88.8 fL (80-94); Mean Platelet Vol. 9.4 fl (6.2-12.0); NRBC Flagged by Analyzer 0 % (0-5); Platelet Count 263 K/mm3 (150-450); RBC Distribution Width CV 12.8 % (11.6-14.6); RBC Distribution Width SD 41.9 fl (35.1-43.9); Red Blood Count 4.99 M/mm3 (4.6-6.2); White Blood Count 9.9 K/mm3 (4.4-11.0)
[2025-05-06 09:04] LABS: Prothrombin Time (Protime)PT. 26.2 SECONDS (11.7-14.9)
[2025-05-06 09:19] LABS: Anion Gap 13 (5-15); BUN 13 mg/dL (4-19); BUN/Creat Ratio 15.3 RATIO (10-20); Calcium,Total 9.0 mg/dL (7.6-11.0); Carbon Dioxide 19.5 mmol/L (21.0-32.0); Chloride 100 mmol/L (98-108); Estimated Creatinine Clearance 82.53 ml/min (50-250); Glucose 115 mg/dL (70-99); Potassium 4.1 mmol/L (3.3-5.1)
[2025-05-06] MEDS: fentaNYL 100 MCG/2 ML Ampul 50 MCG IV (09:45)
[2025-05-06] MEDS: 0.9% Normal Saline (1000mL) 1,000 ML 150 ML IV (09:47)
--- NOTE | 2025-05-06 10:13 | EKG12_ITS ---
Test Reason : A FIB Blood Pressure : */* mmHG Vent. Rate : 113 BPM Atrial Rate : * BPM P-R Int : * ms QRS Dur : 84 ms QT Int : 346 ms P-R-T Axes : * -29 11 degrees QTcB Int : 474 ms Atrial fibrillation with rapid ventricular response Nonspecific ST abnormality Abnormal ECG Confirmed by John Dumont ([id number]), editor newspaper KEV JIMENES ([id number]) on 05/07/2025 11:39:53 AM Referred By: ZURI Confirmed By: John Dumont
--- NOTE | 2025-05-06 10:13 | EKG12_ITS ---
Test Reason : A FIB Blood Pressure : */* mmHG Vent. Rate : 113 BPM Atrial Rate : * BPM P-R Int : * ms QRS Dur : 84 ms QT Int : 346 ms P-R-T Axes : * -29 11 degrees QTcB Int : 474 ms Atrial fibrillation with rapid ventricular response Nonspecific ST abnormality Abnormal ECG Confirmed by Jonh Dumont ([id number]), movie editor KEV JIMENES ([id number]) on 05/07/2025 11:39:53 AM Referred By: ZURI Confirmed By: John Dumont
--- NOTE | 2025-05-06 14:15 | CM.ED ---
Social Work SW was notified by assistant secretary that was tearful. SW entered room, introduced self to patient and and explained role with [facility]. Patient and both receptive to visit but denied any concerns or needs at this time. Patient did stated that this is the 3rd time he has been to [facility] and he has been impressed every time with the kindness and professionalism of all the staff. Dominga Watts, PHOTO MASK INSPECTOR, CORPORATE COMMUNICATIONS SPECIALIST
--- NOTE | 2025-05-06 14:15 | CM.ED ---
Social Work SW was notified by entry level management that was tearful. SW entered room, introduced self to patient and and explained role with [facility]. Patient and both receptive to visit but denied any concerns or needs at this time. Patient did stated that this is the 3rd time he has been to [facility] and he has been impressed every time with the kindness and professionalism of all the staff. Dominga Watts, CARPET LAYER HELPER, SMALL ORDER CUTTER
== END 2025-05-06 11:29 | disposition home or self-care (01) ==
PROVIDERS: Emergency Provider Emergency Medicine; PCP Internal Medicine; Visit Provider Emergency Medicine
DX: I48.0 Paroxysmal atrial fibrillation (principal); I11.0 Hypertensive heart disease with heart failure; I50.22 Chronic systolic (congestive) heart failure; I42.9 Cardiomyopathy, unspecified; I25.10 Atherosclerotic heart disease of native coronary artery without angina pectoris; Z79.899 Other long term (current) drug therapy; Z79.01 Long term (current) use of anticoagulants; Z79.02 Long term (current) use of antithrombotics/antiplatelets; Z87.891 Personal history of nicotine dependence; Z95.5 Presence of coronary angioplasty implant and graft
CPT/HCPCS: 80048; 85025; 85610; 92960; 93005; 96374; 96376; 99284; A4216

== ENCOUNTER 2025-05-29 10:01 | Outpatient (RCR) | payer MEDICARE, SELFPAY ==
[2025-05-29 14:26] LABS: INR Fingerstick 2.3
== END 2025-06-25 18:00 | disposition home or self-care (01) ==
LOC: LAB 10:01
PROVIDERS: PCP Internal Medicine; Referring Provider Physician Assistant Medical; Visit Provider Physician Assistant Medical
DX: Z79.01 Long term (current) use of anticoagulants (principal); I48.0 Paroxysmal atrial fibrillation
CPT/HCPCS: 36416; 85610

== ENCOUNTER 2025-07-12 09:31 | Outpatient (RCR) | payer MEDICARE, SELFPAY ==
[2025-06-28 10:29] LABS: INR Fingerstick 2.6
[2025-07-12 09:42] LABS: INR Fingerstick 2.8
[2025-07-12 10:46] LABS: Anion Gap 11 (5-15); BUN 18 mg/dL (4-19); BUN/Creat Ratio 22.1 RATIO (10-20); Calcium,Total 8.7 mg/dL (7.6-11.0); Carbon Dioxide 22.8 mmol/L (21.0-32.0); Chloride 105 mmol/L (98-108); Glucose 95 mg/dL (70-99); Potassium 3.9 mmol/L (3.3-5.1)
== END 2025-07-12 18:00 | disposition home or self-care (01) ==
LOC: LAB 09:31
PROVIDERS: PCP Internal Medicine; Referring Provider Physician Assistant Medical; Visit Provider Physician Assistant Medical
DX: Z79.01 Long term (current) use of anticoagulants (principal); I48.0 Paroxysmal atrial fibrillation
CPT/HCPCS: 36415; 36416; 80048; 85610

== ENCOUNTER 2025-07-18 10:33 | Day surgery (SDC) | payer MEDICARE, SELFPAY ==
[2025-07-17 13:55] VITALS: BMI 27.6
--- NOTE | 2025-07-18 12:17 | PCM.OP.PRO2 ---
Bedside Procedural Bedside Procedure Information Date of Procedure: 07/18/25 Pre-Procedure Diagnosis: Atrial fibrillation Post-Procedure Diagnosis: Atrial fibrillation Procedure Performed:: DC cardioversion pressure tester: No Procedure Time Out: 12:01 Procedure Start Time: 12:07 Procedure Stop Time: 12:10 Special Medications: Intravenous propofol 70 mg Description of procedure: Patient was brought to cardiac catheterization lab in the postabsorptive nonsedated state. Informed consent was obtained. Anterior-posterior pads were applied. Patient was seen by Dr. Otto of the critical care division. 70 mg of intravenous propofol was administered and then 200 J of synchronized biphasic DC cardioversion energy were applied with prompt reversal to sinus rhythm. Patient was having intermittent atrial fibrillation noted would be administered intravenous amiodarone. Procedure findings: Successful DC cardioversion from atrial fibrillation to sinus rhythm.
--- NOTE | 2025-07-18 12:32 | PCM.OP.PRO2 ---
Procedures Pulmonary Pulmonary Procedures /Diagnostic Testin Con Sedation Bedside Procedural Bedside Procedure Information Date of Procedure: 07/18/25 Description of procedure: CONSCIOUS SEDATION REPORT DATE OF SERVICE: July 18, 2025 BRIEF HISTORY OF PRESENT ILLNESS: The patient is a 70-year-old male who presented to [facility] to undergo an elective outpatient cardioversion due to underlying atrial fibrillation. The patient denied any prior anesthetic complications. He denied a history of COPD, asthma or obstructive sleep apnea. The patient is systemically anticoagulated on Coumadin with an INR of 3.1. His last surface echocardiogram demonstrated an ejection fraction of approximately 65%. PHYSICAL EXAMINATION: VITAL SIGNS: Reviewed and were acceptable. GENERAL: The patient is a male, in no apparent distress, speaking in full sentences. HEENT: Normocephalic, atraumatic. Mucous membranes are moist and pink. Good mouth opening noted. Trachea is midline. Good neck mobility. CHEST: S1, S2 irregularly irregular. No murmurs, rubs or gallops were noted. LUNGS: Clear to auscultation bilaterally without appreciable wheezes, rales or rhonchi. ABDOMEN: Soft, nontender, nondistended. Positive bowel sounds. EXTREMITIES: There is no clubbing, cyanosis or edema. ASA Class: II DESCRIPTION OF PROCEDURE: After confirmation of informed consent, the patient's anesthesia plan was reviewed in detail. Propofol was chosen. Risks and benefits were reviewed and the patient agreed to proceed. At 1204, the patient was given 70 mg of propofol. The patient achieved an appropriate level of sedation and was given a 200 joule synchronized cardioversion by Dr. Ulloa at the bedside. This was successful in achieving normal sinus rhythm. The patient was monitored until 1217, at which time he reached his baseline mental status and function. The patient tolerated the procedure well. COMPLICATIONS: None ESTIMATED BLOOD LOSS: None RECOMMENDATIONS: Okay to recover in usual fashion.
[2025-07-22 12:55] LABS: INR Fingerstick 3.1
== END 2025-07-18 13:10 | disposition home or self-care (01) ==
PROVIDERS: PCP Internal Medicine; Referring Provider Internal Medicine Cardiovascular Disease; Visit Provider Internal Medicine Cardiovascular Disease
DX: I48.0 Paroxysmal atrial fibrillation (principal); I25.10 Atherosclerotic heart disease of native coronary artery without angina pectoris; I10 Essential (primary) hypertension; E78.2 Mixed hyperlipidemia; Z79.82 Long term (current) use of aspirin; Z79.01 Long term (current) use of anticoagulants; Z79.02 Long term (current) use of antithrombotics/antiplatelets; Z79.899 Other long term (current) drug therapy; Z95.5 Presence of coronary angioplasty implant and graft; Z87.891 Personal history of nicotine dependence
CPT/HCPCS: 36416; 85610; 92960; 93005

== ENCOUNTER 2025-08-12 09:05 | Outpatient (RCR) | payer MEDICARE, SELFPAY ==
[2025-08-13 07:48] LABS: INR Fingerstick 1.9
== END 2025-08-24 18:00 | disposition home or self-care (01) ==
LOC: LAB 09:05
PROVIDERS: PCP Internal Medicine; Referring Provider Physician Assistant Medical; Visit Provider Physician Assistant Medical
DX: Z79.01 Long term (current) use of anticoagulants (principal); I48.0 Paroxysmal atrial fibrillation
CPT/HCPCS: 36416; 85610

== ENCOUNTER 2025-09-23 08:43 | Outpatient (RCR) | payer MEDICARE, SELFPAY ==
[2025-09-10 08:03] LABS: INR Fingerstick 1.7
[2025-09-23 08:51] LABS: INR Fingerstick 2.1
== END 2025-09-23 18:00 | disposition home or self-care (01) ==
LOC: LAB 08:43
PROVIDERS: PCP Internal Medicine; Referring Provider Physician Assistant Medical; Visit Provider Physician Assistant Medical
DX: Z79.01 Long term (current) use of anticoagulants (principal); I48.0 Paroxysmal atrial fibrillation
CPT/HCPCS: 36416; 85610